=== PATIENT | male | born 1935 | race Caucasian/White ===

== ENCOUNTER 2020-06-01 08:30 | Outpatient (CLI) | payer MEDICARE, SELFPAY ==
--- NOTE | 2020-06-01 08:34 | CT_ITS ---
WS: [id number] CT ABDOMEN CONTRAST TECHNIQUE: Contrast enhanced CT of the abdomen with coronal and sagittal reformatted images. CLINICAL INFORMATION: LEFT UPPER QUADRANT PAIN COMPARISON: None. DLP: [address] scans at [facility] use at least one of these dose optimization techniques: automat ed exposure control; mA and/or kV adjustment per patient size (includes targeted exams where dose is matched to clinical indication); or iterative reconstruction. FINDINGS: Normal liver. Gallbladder appears normal. Normal GE junction. Small splenules. Normal spleen. Mild fa tty atrophy of the pancreas. A few calcifications in the head of the pancreas consistent with chronic pancreatitis. No evidence of acute pancreatitis. Lung bases are well aerated. Adrenal glands are normal. Normal renal parenchymal enhancement. Bilateral renal cortical atrophy. Mu ltiple bilateral renal cysts some are too small to characterize. Parapelvic renal cysts. No hydroneph rosis. Prominent calculus in the right renal pelvis with mild dilatation right renal pelvis. Calculus measures 10 mm unchanged. Mild aortic calcification. Normal caliber abdominal aorta. Disc space narrowing worse at L3-L4 and L5-S1 with vacuum disc phenomenon. Chronic biconcave compress ion at T11. CT/CT abdomen w con* [id number] IMPRESSION: 1. Evidence of chronic pancreatitis with pancreatic calcifications. No evidenc e of acute pancreatitis. 2. Bilateral renal cortical atrophy with bilateral renal cysts. Parapelvic cys ts. 3. 10 mm calculus right renal pelvis with mild dilatation renal pelvis. No hyd ronephrosis. This is unchanged from previous. 4. Normal caliber abdominal aorta. 5. Chronic biconcave compression of the T11 vertebral body. Disc space narrowi ng worse at L3-L4 and L5-S1 vacuum disc phenomenon. 6. Cholelithiasis.
[2020-06-01] MEDS: iohexol 300 mg/mL 50 mL Btl PO (08:58)
[2020-06-01] MEDS: iodixanol 320 mg/mL 100mL Btl IV (10:06)
== END 2020-06-01 08:31 | disposition home or self-care (01) ==
LOC: RADWPI 08:34
PROVIDERS: PCP Internal Medicine; Visit Provider Nurse Practitioner
DX: R10.12 Left upper quadrant pain (principal); K80.20 Calculus of gallbladder without cholecystitis without obstruction; S22.080A Wedge compression fracture of T11-T12 vertebra, initial encounter for closed fracture; N26.1 Atrophy of kidney (terminal); N20.0 Calculus of kidney; K86.89 Other specified diseases of pancreas; X58.XXXA Exposure to other specified factors, initial encounter
CPT/HCPCS: 74160; Q9967

== ENCOUNTER 2020-08-02 08:31 | Outpatient (CLI) | payer MEDICARE, SELFPAY | END 2020-08-02 08:32 | disposition home or self-care (01) | LOC: WOUND 08:32 | PROVIDERS: PCP Internal Medicine; Visit Provider Nurse Practitioner Family | DX: I96 Gangrene, not elsewhere classified (principal); L89.152 Pressure ulcer of sacral region, stage 2; S51.811A Laceration without foreign body of right forearm, initial encounter; X58.XXXA Exposure to other specified factors, initial encounter | CPT/HCPCS: 11042; 87070; 87176; 87205; G0463 ==

== ENCOUNTER 2020-08-09 10:15 | Outpatient (CLI) | payer MEDICARE, SELFPAY | END 2020-08-09 10:16 | disposition home or self-care (01) | LOC: WOUND 10:17 | PROVIDERS: PCP Internal Medicine; Visit Provider Nurse Practitioner Family | DX: Z09 Encounter for follow-up examination after completed treatment for conditions other than malignant neoplasm (principal) | CPT/HCPCS: 99212 ==

== ENCOUNTER 2021-05-31 09:21 | Outpatient (CLI) | payer MEDICARE, SELFPAY ==
--- NOTE | 2021-05-31 09:31 | CT_ITS ---
WS: [id number] CT LUMBAR SPINE TECHNIQUE: Noncontrast CT of the lumbar spine with coronal and sagittal reformatted images. CLINICAL INFORMATION: LOW BACK PAIN COMPARISON: CT 3 DLP: 1925.[address] scans at [facility] use at least one of these dose optimization techniques: automated e xposure control; mA and/or kV adjustment per patient size (includes targeted exams where dose is matc hed to clinical indication); or iterative reconstruction. FINDINGS: Mild lumbar curve convex left. Disc space narrowing worse at L3-L4 L4-L5 and L5-S1 with vacuum disc p henomenon. Mild chronic anterior wedging L3 appear stable since 2015. No acute appearing compression fractures. L1-L2: Mild disc bulging with moderate facet arthropathy. Mild central canal stenosis. Narrowing of t he subarticular recess. Mild bilateral foraminal narrowing. L2-L3: Mild disc bulging with slight effacement of ventral thecal sac. Moderate facet arthropathy. Sm all bilateral foraminal protrusions with moderate bilateral foraminal narrowing. L3-L4: Mild disc bulging and osteophytic ridging. Mild central canal stenosis. Moderate to advanced f acet arthropathy. Moderate bilateral foraminal narrowing. L4-L5: Disc osteophyte complex with endplate ridging. Mild central canal stenosis. Impingement pura sing left L5 nerve root. Moderate facet arthropathy. Mild left and moderate right bony foraminal narr owing. L5-S1: Disc osteophyte complexes with endplate ridging. Mild central canal stenosis. Mild facet arthr opathy. Moderate to advanced bilateral bony foraminal narrowing with impingement on the exiting L5 ne rve roots. Moderate facet arthropathy. Adrenal glands are normal. Partially visualized right renal cyst. Normal caliber abdominal aorta. CT/CT lumbar spine wo con* [id number] IMPRESSION: 1. Mild lumbar curve. No acute compression. Slight anterolisthesis L3 on L4. 2. Disc space narrowing worse at L3-L4 L4-L5 and L5-S1 appears slightly progre ssed compared to 2015. 3. Chronic anterior wedging at L3 appears stable. 4. Mild to moderate central canal stenosis worse at L1-2, L3-4, L4-L5. 5. Left pericentral disc osteophyte complex L4-5 impinges the traversing left L5 nerve root in the subarticular recess. 6. Multilevel moderate bony foraminal narrowing worse at right L2-3, bilateral L3-4, right L4-5, and bilateral L5-S1. 7. Moderate to advanced facet arthropathy worse at L2-3, L3-4, L4-5.
--- NOTE | 2021-05-31 09:31 | XR_ITS ---
WS: [id number] LUMBAR SPINE FLEXION AND EXTENSION TECHNIQUE: 3 views of the lumbar spine: Lateral neutral, flexion, and extension views. 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 FINDINGS: Osteopenia. Slight anterolisthesis L3 on L4 measuring 5.7 mm in neutral. No significant changes on fl exion-extension. Disc space narrowing worse at L3-L4 L4-L5 and L5-S1. Mild chronic compression deform ity superior endplates at L3-L5 slightly progressed at L3 compared to previous. Osteopenia. Aortic ca lcification. Mild chronic biconcave compression at T11 is unchanged. XR/XR lumbar spine f/e only [id number] IMPRESSION: 1. Grade 1 anterolisthesis L3 on L4. No significant instability on flexion-ext ension. 2. Osteopenia.
== END 2021-05-31 09:22 | disposition home or self-care (01) ==
PROVIDERS: PCP Internal Medicine; Visit Provider Nurse Practitioner
DX: M96.1 Postlaminectomy syndrome, not elsewhere classified (principal); M54.5 Low back pain; M85.88 Other specified disorders of bone density and structure, other site; M43.16 Spondylolisthesis, lumbar region; M47.816 Spondylosis without myelopathy or radiculopathy, lumbar region
CPT/HCPCS: 72120; 72131

== ENCOUNTER → 2022-08-22 07:52 | Outpatient (BNVA) | payer MEDICARE, SELFPAY | PROVIDERS: PCP Family Medicine; Visit Provider Thoracic Surgery (Cardiothoracic Vascular Surgery) | DX: I96 Gangrene, not elsewhere classified (principal); L89.152 Pressure ulcer of sacral region, stage 2 | CPT/HCPCS: 97597; 99213; A6021; A6212 ==

== ENCOUNTER → 2022-08-29 10:15 | Outpatient (BNVA) | payer MEDICARE, SELFPAY | PROVIDERS: PCP Family Medicine; Visit Provider Thoracic Surgery (Cardiothoracic Vascular Surgery) | DX: L89.152 Pressure ulcer of sacral region, stage 2 (principal) | CPT/HCPCS: 97597; A6021 ==

== ENCOUNTER → 2022-09-13 10:09 | Outpatient (BNVA) | payer MEDICARE, SELFPAY | PROVIDERS: PCP Family Medicine; Visit Provider Thoracic Surgery (Cardiothoracic Vascular Surgery) | DX: L89.152 Pressure ulcer of sacral region, stage 2 (principal) | CPT/HCPCS: 97597; A6212 ×2 ==

== ENCOUNTER → 2022-09-15 12:46 | Outpatient (BNVA) | payer MEDICARE, SELFPAY | PROVIDERS: PCP Family Medicine; Visit Provider Family Medicine | DX: R60.9 Edema, unspecified (principal); H61.20 Impacted cerumen, unspecified ear; R07.89 Other chest pain | CPT/HCPCS: 80053; 83880; 85025 ==

== ENCOUNTER → 2022-09-20 09:10 | Outpatient (BNVA) | payer MEDICARE, SELFPAY | PROVIDERS: PCP Family Medicine; Visit Provider Thoracic Surgery (Cardiothoracic Vascular Surgery) | DX: L89.152 Pressure ulcer of sacral region, stage 2 (principal) | CPT/HCPCS: 97597; A6212 ==

== ENCOUNTER → 2022-10-04 14:03 | Outpatient (BNVA) | payer MEDICARE, SELFPAY | PROVIDERS: PCP Family Medicine; Visit Provider Thoracic Surgery (Cardiothoracic Vascular Surgery) | DX: L89.152 Pressure ulcer of sacral region, stage 2 (principal) | CPT/HCPCS: 97597; A6021; A6212 ==

== ENCOUNTER → 2022-10-19 15:40 | Outpatient (BNVA) | payer MEDICARE, SELFPAY | PROVIDERS: PCP Family Medicine; Referring Provider Anesthesiology Pain Medicine; Visit Provider Orthopaedic Surgery | DX: M47.816 Spondylosis without myelopathy or radiculopathy, lumbar region (principal); M41.9 Scoliosis, unspecified; M80.08XA Age-related osteoporosis with current pathological fracture, vertebra(e), initial encounter for fracture; Z96.82 Presence of neurostimulator | CPT/HCPCS: 72110; 99204 ==

== ENCOUNTER → 2022-10-25 15:44 | Outpatient (BNVA) | payer MEDICARE, SELFPAY | PROVIDERS: PCP Family Medicine; Visit Provider Thoracic Surgery (Cardiothoracic Vascular Surgery) | DX: L89.152 Pressure ulcer of sacral region, stage 2 (principal) | CPT/HCPCS: 99212; A6021 ==

== ENCOUNTER 2022-11-21 07:50 | Outpatient (CLI) | payer MEDICARE, SELFPAY ==
--- NOTE | 2022-11-21 08:05 | NM_ITS ---
WS: [id number] NUCLEAR MEDICINE BONE SCAN Radiopharmaceutical: 24.6 Tc-99m MDP mCi IV Injection site: Antecubital Postinjection imaging delay: 1 hr CLINICAL INFORMATION: low back pain, compression fractures COMPARISON: 2006 and lumbar spine October 19, 2022 FINDINGS: Radiograph demonstrates biconcave compression fractures at L1 and L2. Increased radiotracer uptake in these areas on the bone scan compatible with acute compression. Radiotracer uptake is more intense at L2. Degenerative type uptake in RIGHT mid thoracic posterior pedicle. Thoracolumbar curve. Focal uptake in a LEFT lateral lower thoracic rib, approximately 9th rib anterio rly, likely due to trauma. Soft tissue contours: Normal. Kidneys: Normal. Other findings: Bilateral TKAs. NM/NM bone scan whole body* [id number] IMPRESSION: 1. Recent radiograph demonstrates biconcave compression fractures at L1 and L2 . Increased radiotracer uptake in these areas on the bone scan compatible with acute compression. Radiotracer uptake is more intense at L2. 2. Focal uptake in the 9th LEFT lateral lower thoracic rib anteriorly likely d ue to trauma.
== END 2022-11-21 07:51 | disposition home or self-care (01) ==
PROVIDERS: PCP Family Medicine; Visit Provider Orthopaedic Surgery
DX: M48.56XA Collapsed vertebra, not elsewhere classified, lumbar region, initial encounter for fracture (principal)
CPT/HCPCS: 78306; A9561

== ENCOUNTER → 2022-11-23 13:48 | Outpatient (BNVA) | payer MEDICARE, SELFPAY | PROVIDERS: PCP Family Medicine; Visit Provider Physician Assistant | DX: S32.000A Wedge compression fracture of unspecified lumbar vertebra, initial encounter for closed fracture (principal); X58.XXXA Exposure to other specified factors, initial encounter | CPT/HCPCS: 99213 ==

== ENCOUNTER 2022-12-20 14:40 | Outpatient (CLI) | payer MEDICARE, SELFPAY ==
[2022-12-20 15:48] LABS: Basophils % 0.5 %; Eosinophils # 0.2 10^3/uL (0.0-0.8); Eosinophils % 2.5 %; Hematocrit 36.9 % (42.0-52.0); Lymphocytes # 0.4 10^3/uL (0.8-4.8); Mean Corpuscular HGB Conc 32.5 g/dL (30.0-36.0); Mean Corpuscular Hemoglobin 30.7 pg (28.0-34.0); Mean Corpuscular Volume 94.4 fl (80-94); Mean Platelet Volume 12.5 fL (7.4-10.4); Monocytes # 1.1 10^3/uL (0.2-0.9); Neutrophils # 4.36 10^3/uL (1.8-7.7); Neutrophils % 72.7 %; Nucleated Red Blood Cells % 0 %; Platelet Count 155 10^3/cmm (130-400); Red Blood Count 3.91 10^6/uL (4.1-5.3); Red Cell Distribution Width 14.6 % (12.1-15.1)
[2022-12-20 16:13] LABS: Blood Urea Nitrogen 23 mg/dL (8-23); Calcium 8.7 mg/dL (8.5-10.5); Carbon Dioxide 25 mmol/L (22-29); Chloride 105 mmol/L (98-107); Glucose 144 mg/dL (65-115); Osmolality Calculated 298 mOsm/kg (285-295); Sodium 141 mmol/L (136-145)
[2022-12-20 16:35] LABS: Slide Review Slide Review Perform
== END 2022-12-20 14:41 | disposition home or self-care (01) ==
LOC: LAB 14:51
PROVIDERS: Orthopaedic Surgery; PCP Family Medicine; Visit Provider Family Medicine
DX: Z01.818 Encounter for other preprocedural examination (principal)
CPT/HCPCS: 36415; 80048; 85025

== ENCOUNTER → 2023-01-08 10:36 | Outpatient (BNVA) | payer MEDICARE, SELFPAY | PROVIDERS: PCP Family Medicine; Visit Provider Internal Medicine | DX: R26.9 Unspecified abnormalities of gait and mobility (principal); M96.1 Postlaminectomy syndrome, not elsewhere classified; Z79.899 Other long term (current) drug therapy; S32.000A Wedge compression fracture of unspecified lumbar vertebra, initial encounter for closed fracture; M32.9 Systemic lupus erythematosus, unspecified; X58.XXXA Exposure to other specified factors, initial encounter | CPT/HCPCS: 99213 ==

== ENCOUNTER 2023-01-26 05:35 | Outpatient (CLI) | payer MEDICARE, SELFPAY | END 2023-01-26 05:36 | disposition home or self-care (01) | LOC: RT 02-09 05:36 | PROVIDERS: PCP Family Medicine; Visit Provider Orthopaedic Surgery | DX: Z01.810 Encounter for preprocedural cardiovascular examination (principal); I44.0 Atrioventricular block, first degree; R94.31 Abnormal electrocardiogram [ECG] [EKG] | CPT/HCPCS: 93005 ==

== ENCOUNTER 2023-02-01 10:49 | Emergency (ER) | payer MEDICARE, SELFPAY ==
--- NOTE | 2023-02-01 11:20 | XR_ITS ---
WS: [id number] Exam: XR ribs RT mn 3V w CXR1V [id number] Date/Time of Exam: 02/01/2023 11:20 AM Reason For Exam: fall There is a nondisplaced fracture of the lateral aspect of the right eighth rib. There may also be a n ondisplaced fracture of the lateral right sixth rib. No other acute fractures. The right lung is hollie r and fully inflated. XR/XR ribs RT mn 3V w CXR1V [id number] IMPRESSION: 1. Nondisplaced right eighth rib fracture. Questionable nondisplaced fracture o f the right sixth rib. No pneumothorax is noted. 2. The lungs are bilaterally clear. Normal cardiomediastinal silhouette. Opaque catheter seen along the central chest extending into the left abdominal region .
--- NOTE | 2023-02-01 11:20 | CT_ITS ---
WS: [id number] CT HEAD NONCONTRAST HISTORY: fall TECHNIQUE: Contiguous axial imaging performed through the brain in 2.5 mm imaging. Bone and soft tiss ue windows. Sagittal and coronal reformats reviewed. All CT scans at [facility] use at least one of these dose optimization techniques: automated exposure control; mA and/or kV adjustment per pa tient size (includes targeted exams where dose is matched to clinical indication); or iterative recon struction. DLP: 1095.51 mGy.cm COMPARISON: 04/17/2022 No acute intracranial hemorrhage, midline shift or mass effect. Mild atrophy and small vessel ischemic disease. No prior large territory infarct. Small lacunar infa rct LEFT basal ganglia. Ventricles: Mild ventriculomegaly on the basis of atrophy. No inferior displacement of the cerebellar tonsils. Paranasal sinuses: No air-fluid levels. Complete opacification sphenoid sinus. Mastoid air cells: Well pneumatized. Calvarium and scalp: Skull is intact with no soft tissue edema or swelling. CT/CT head wo con* [id number] IMPRESSION: 1. No acute intracranial hemorrhage or edema. 2. Mild atrophy and mild small vessel ischemic changes. 3. No skull fracture.
--- NOTE | 2023-02-01 11:20 | W.ED.FALL ---
HPI - Fall General: Chief Complaint: Fall Stated Complaint: Fall/Hit head Time Seen by Provider: 02/01/23 10:57 Source: patient Mode of arrival: ambulatory Limitations: no limitations History of Present Illness: 87-year-old male states that he had fell out of bed this morning roughly 3 to 4 hours ago. Did hit his head and his right ribs his abrasion to his head he states he is got a mild headache and right-sided chest pain he rates a 3 out of 10 denies any shortness of breath denies any neck pain denies any facial pain. He is scheduled for a lumbar back surgery tomorrow he denies any pain in his low back. Associated symptoms-after fall: Reports chest pain and headache(s); Denies abdominal pain or neck pain Review of Systems Const: Denies: fever(s), chills, body aches or change in appetite Eyes: Denies: blurry vision or eye discomfort ENMT: Denies: throat pain or dental pain Card: Reports: chest pain Resp: Denies: dyspnea GI: Denies: abdominal pain, nausea, vomiting or diarrhea Musc: Denies: neck pain or back pain Skin/Breast: Denies: rash Neuro: Reports: headache(s) PFSH ED PFSH: Medical History Constipation due to opioid therapy DDD (degenerative disc disease) GERD (gastroesophageal reflux disease) History of pancreatitis History of prostate cancer Osteoarthritis Osteoporosis Systemic lupus erythematosus Surgical History History of bilateral carpal tunnel release History of hand surgery left trigger finger History of lumbar surgery History of open reduction and internal fixation (ORIF) procedure r femur History of open reduction and internal fixation (ORIF) procedure r elbow History of repair of right rotator cuff History of total bilateral knee replacement Status post insertion of spinal cord stimulator Family History Mother Dementia Father Rheumatoid arthritis Social History Smoking and tobacco status: never smoked Alcohol intake: current Alcohol intake frequency: holidays/special occasions only Substance/Drug Use: never Lives independently: Yes Household members: spouse Marital status: Number of children: 2 Current occupational status: retired 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 Physical Exam Const: COMMON NORMALS: no acute distress, patient oriented x3 and healthy appearing HENMT: COMMON NORMALS: normocephalic; head/scalp not atraumatic (abrasion to right forehead) HEAD & SCALP: normocephalic; not atraumatic (abrasion to right forehead) Eye: COMMON NORMALS: Equal, round and reactive pupils present and EOMs intact bilaterally PUPIL: Yes Equal, round and reactive pupils present Neck/C-Spine: COMMON NORMALS: full ROM and supple CERVICAL SPINE: No Cervical spine tenderness Chest: COMMONS NORMALS: normal inspection of the chest OTHER: right sided chest tenderness Resp: COMMON NORMALS: normal respiratory effort, No retractions, No use of accessory muscles and clear to auscultation bilaterally AUSCULTATION: clear to auscultation bilaterally Cardio: COMMON NORMALS: regular rate, regular rhythm and No murmurs present (Cardio) RATE: regular rate RHYTHM: regular rhythm GI: COMMON NORMALS: Normal to inspection, nondistended, normoactive bowel sounds present, Soft to palpation, non-tender and no masses PALPATION: Yes Soft to palpation Extremity: COMMON NORMALS: normal to inspection and full ROM Neuro: COMMON NORMALS: patient oriented x3, moves all extremities and no focal motor deficits Psych: COMMON NORMALS: mental status grossly normal, Normal thought process present and cooperative THOUGHT PROCESS: Normal thought process present Skin: COMMON NORMALS: no rashes or lesions noted and no wounds GENERAL SKIN EXAM: no rashes or lesions noted Course Vital Signs: Vital signs: Vital Signs Temperature 97.8 F 02/01/23 11:23 Pulse Rate 66 02/01/23 11:23 Respiratory Rate 18 02/01/23 11:23 Blood Pressure 138/78 02/01/23 11:23 Pulse Oximetry 97 02/01/23 11:23 Oxygen Delivery Me thod Room Air 02/01/23 11:23 MDM - Fall Medical Decision Making Patient presents after a fall his head CT here is normal he does have 1/9 rib fracture no signs of pneumothorax he is well-appearing here otherwise no signs of any other injuries his abdominal exam is benign he is stable for discharge we will prescribe tramadol he is to follow-up with PCP and return if worsening. Medical Records I reviewed the patient's medical records. Lab Data I reviewed the patient's lab results. Radiology Impressions Head CT 02/01/23 11:20 IMPRESSION: 1. No acute intracranial hemorrhage or edema. 2. Mild atrophy and mild small vessel ischemic changes. 3. No skull fracture. Ribs X-Ray 02/01/23 11:20 IMPRESSION: 1. Nondisplaced right eighth rib fracture. Questionable nondisplaced fracture of the right sixth rib. No pneumothorax is noted. 2. The lungs are bilaterally clear. Normal cardiomediastinal silhouette. Opaque catheter seen along the central chest extending into the left abdominal region. Discharge Plan Discharge Patient Disposition: Home Clinical Impression: Fall, CHI (closed head injury) Closed rib fracture Qualifiers: Encounter type: initial encounter Rib fracture type: single rib Laterality: right Qualified Code(s): S22.31XA - Fracture of one rib, right side, initial encounter for closed fracture Condition: Stable Prescriptions: New tramadol 50 mg tablet 50 mg PO Q8H PRN (Reason: pain) Qty: 14 0RF No Action cholecalciferol (vitamin D3) 50 mcg (2,000 unit) capsule 50 mcg PO QAM acetaminophen [Tylenol 8 Hour] 650 mg tablet extended release 650 mg PO .UP TO QID hydroxychloroquine [Plaquenil] 200 mg tablet 200 mg PO BID Qty: 60 4RF multivitamin Tablet 1 tab PO DAILY Colace 100 mg Capsule 100 mg PO DAILY PRN (Reason: Constipation) Discharge Orders: Discharge ED (Routine); Ordered 02/01/23 Ordered By: Corby Nicolas Referrals: Rukhsana Gutierrez MD [Primary Care Provider] - 1-3 days Discharge Diet: Advance as tolerated Discharge Activity: Resume usual activity Patient Instructions: Rib Fracture (ED), Head Injury (ED) Coding Level of Care Code ED Business Unit Leader for Felicity Orozco
[2023-02-01 11:23] VITALS: BP 138/78; PULSE 66; RESP 18; TEMP 36.6; O2SAT 97
--- NOTE | 2023-02-01 12:01 | PC.PHAR ---
pts verified pts medications-pts states she has been taking care of his medications for a year at least-ext med history shows metoprolol tartrate 25mg bid filled 01/19/23 90d/s leflunomide 20mg daily filled 01/15/23 90d/s prednisone 2.5mg daily filled 11/13/22 90d/s and pantoprazole 40mg daily filled 10/26/22 90d/s all filled at [facility] states they filled all those medications for hugo jolly twin brother but states they havent filled them for almaz states the most recent thing they filled for almaz was plaquenil 200mg bid 10/21/22 60d/s pt also had plaquenil medication filled 01/08/23 30d/s at [facility]-pts states the pt is only taking the medications entered
[2023-02-01] MEDS: TRAMadol 50 mg Tablet PO (12:11)
[2023-02-01 12:19] VITALS: BP 138/78; PULSE 66; RESP 18; O2SAT 97
== END 2023-02-01 12:22 | disposition home or self-care (01) ==
PROVIDERS: Emergency Provider Emergency Medicine; PCP Family Medicine
DX: S09.8XXA Other specified injuries of head, initial encounter (principal); S22.31XA Fracture of one rib, right side, initial encounter for closed fracture; Z85.46 Personal history of malignant neoplasm of prostate; M32.9 Systemic lupus erythematosus, unspecified; W06.XXXA Fall from bed, initial encounter
CPT/HCPCS: 70450; 71101; 99284

== ENCOUNTER 2023-02-02 05:42 | Day surgery (SDC) | payer MEDICARE, SELFPAY ==
--- NOTE | 2023-01-26 09:56 | ECG_ITS ---
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 Measurements Intervals [place] Rate: 80 P: 23 DC: 211 QRS: 45 QRSD: 105 T: -10 QT: 352 QTc: 408 Interpretive Statements SINUS RHYTHM WITH FIRST DEGREE AV BLOCK LOW QRS VOLTAGE IN PRECORDIAL LEADS [QRS DEFLECTION < 1.0 mV IN CHEST LEADS] NONSPECIFIC ST & T-WAVE ABNORMALITY Compared to ECG 04/17/2022 18:23:48 First degree AV block now present Low QRS voltage now present Sinus tachycardia no longer present Atrial abnormality no longer present Possible ischemia no longer present T-wave abnormality still present Electronically Signed On 01-26-2023 12:30:54 CDT by Kavita Holliday M.D. [id number]
--- NOTE | 2023-01-26 14:36 | P.ANESASSM_ITS ---
Pre-Anesthetic Assessment Height/Weight: Height 1.8 m Weight 85.275 kg Operation Date: 02/02/23 07:00 Proposed Procedures p L1, L2 kyphoplasty : 92845,44831,S32.000A(Not Applicable) - Segundo Rodriguez DO Familial anesthetic complications: none Was Beta Karthikeyan taken within 24 hours: N/A Was Clonidine taken within 24 hours: N/A Social No alcohol and No tobacco Exam alert, oriented x 3, clear to auscultation bilaterally and regular rate & rhythm Airway Submandibular: within normal limits Cervical ROM: within normal limits Mallampati: Class II Dentition: chipped GI Gastroesophageal Reflux Disease Musc/skel Lower Back Pain and Osteoarthritis/DJD Lupus Anesthetic Plan ASA status: 3 Anesthesia: General Medications/Allergies Home Medications Medication Instructions Recorded Confirmed Last Taken Type multivitamin,bw-pvlr-hdgasbuh 1 tab PO DAILY 03/25/20 01/26/23 01/26/23 History (Complete Multivitamin tablet) docusate sodium 50 mg capsule 50 mg PO DAILY 05/22/22 01/26/23 01/26/23 History acetaminophen 650 mg 650 mg PO Q8H 12/22/22 01/26/23 01/26/23 History tablet,extended release (Tylenol 8 Hour) cholecalciferol (vitamin D3) 50 50 mcg PO DAILY 12/22/22 01/26/23 01/26/23 History mcg (2,000 unit) capsule tramadol 50 mg tablet 50 mg PO Q4H PRN pain 5 days #30 01/02/23 01/26/23 Unknown Rx tabs hydroxychloroquine 200 mg tablet 200 mg PO BID #60 tabs 01/08/23 01/26/23 01/26/23 Rx (Plaquenil) Allergies Allergy/AdvReac Type Severity Reaction Status Date / Time hydrocodone [From [place]] Allergy Intermediate ADR-halluci Verified 01/26/23 09:32 [facility] Anesthesia Medical History Constipation due to opioid therapy DDD (degenerative disc disease) GERD (gastroesophageal reflux disease) History of pancreatitis History of prostate cancer Osteoarthritis Osteoporosis Systemic lupus erythematosus Surgical History History of bilateral carpal tunnel release History of hand surgery left trigger finger History of lumbar surgery History of open reduction and internal fixation (ORIF) procedure r femur History of open reduction and internal fixation (ORIF) procedure r elbow History of repair of right rotator cuff History of total bilateral knee replacement Status post insertion of spinal cord stimulator Family History Mother Dementia Father Rheumatoid arthritis Social History Smoking and tobacco status: never smoked Alcohol intake: current Alcohol intake frequency: holidays/special occasions only Substance/Drug Use: never Lives independently: Yes Household members: spouse Marital status: Number of children: 2 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
[2023-02-02] VITALS (13 sets, daily range): BP systolic 158–188; BP diastolic 73–101; PULSE 77–85; RESP 16; TEMP 36.2–36.5; O2SAT 91–100
--- NOTE | 2023-02-02 05:46 | SC_ITS ---
WS: [id number] Exam: C-arm FL for Kyphoplasty Date/Time of Exam: 02/02/2023 5:46 AM Reason For Exam: Kyphoplasty L1 and L2 AP and lateral C-arm images of the upper lumbar spine are provided. Images were obtained for intraope rative purposes.
--- NOTE | 2023-02-02 06:25 | P.HP_ITS ---
Providers/Chief Complaint Primary Care Provider: Rukhsana Gutierrez MD Chief Complaint: S32.000A History of Present Illness Srikanthbrea Crocker is a 87 year old male ?low back pain that has been on going for years and worse sine he fell on 02/05/22. Chief Complaint: low back pain Onset: years? Duration: worse over the past 6 months Characteristics: ache Severity: 02/10 Location: low back pain Radiating symptoms: none Aggravating factors:? car rides with his , sudden movements, walking Alleviating factors:? topical creams without relief Neuro deficits: denies numbness, tingling, weakness, incontinence of bow el/bladder, saddle anesthesia. Prior tx:TRISH and ablation with? some relief Review of Systems Const: Denies: fever(s), chills, body aches or change in appetite Eyes: Denies: blurry vision or eye discomfort ENMT: Denies: throat pain or dental pain Card: Reports: chest pain Resp: Denies: dyspnea GI: Denies: abdominal pain, nausea, vomiting or diarrhea Musc: Denies: neck pain or back pain Skin/Breast: Denies: rash Neuro: Reports: headache(s) Medications/Allergies Home Medications Medication Instructions Recorded Confirmed Last Taken Type acetaminophen 650 mg 650 mg PO .UP TO QID 12/22/22 02/01/23 02/01/23 07:00 History tablet,extended release (Tylenol 8 Hour) cholecalciferol (vitamin D3) 50 50 mcg PO QAM 12/22/22 02/01/23 02/01/23 07:00 History mcg (2,000 unit) capsule hydroxychloroquine 200 mg tablet 200 mg PO BID #60 tabs 01/08/23 02/01/23 02/01/23 07:00 Rx (Plaquenil) docusate sodium 100 mg capsule 100 mg PO DAILY PRN Constipation 02/01/23 02/01/23 Unknown History (Colace) multivitamin 1 tab PO DAILY 02/01/23 02/01/23 01/31/23 History tramadol 50 mg tablet 50 mg PO Q8H PRN pain #14 tabs 02/01/23 Unknown Rx Allergies Allergy/AdvReac Type Severity Reaction Status Date / Time hydrocodone [From [place]] Allergy Intermediate ADR-halluci Verified 02/02/23 06:27 nations PFSH Acute PFSH: Medical History Constipation due to opioid therapy DDD (degenerative disc disease) GERD (gastroesophageal reflux disease) History of pancreatitis History of prostate cancer Osteoarthritis Osteoporosis Systemic lupus erythematosus Surgical History History of bilateral carpal tunnel release History of hand surgery left trigger finger History of lumbar surgery History of open reduction and internal fixation (ORIF) procedure r femur History of open reduction and internal fixation (ORIF) procedure r elbow History of repair of right rotator cuff History of total bilateral knee replacement Status post insertion of spinal cord stimulator Family History Mother Dementia Father Rheumatoid arthritis Social History Smoking and tobacco status: never smoked Alcohol intake: current Alcohol intake frequency: holidays/special occasions only Substance/Drug Use: never Lives independently: Yes Household members: spouse Marital status: Number of children: 2 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 EXAM NARRATIVE: Al ert and orient x3 has good general a ppearance normal n ormal affect.? Pre sents in a wheelch air with his famil y present.? He is tender with palpat ion to the low jose f k.? Is 4/5 strengt h in both lower ex tremities skin is clear warm femoral good cap refill. HENMT:?? COMMON NORMALS: no rmocephalic? HEAD & SCALP: normoceph alic Resp:?? COMMON NORMALS: no rmal respiratory e ffort Cardio:?? COMMON NORMALS: re gular rate and reg ular rhythm? RATE: regular rate? RHY THM: regular rhyth m GI:?? COMMON NORMALS: So ft to palpation an d non-tender? PALP ATION: Yes Soft to palpation :?? COMMON NORMALS: Ye s no CVA tendernes s? BLADDER/KIDNEY EXAM: Yes no CVA t enderness Back/Pelvis:?? COMMON NORMALS: no CVA tenderness A&P Assessment and plan (1) Traumatic compression fracture of lumbar vertebra: L1 and L2 Kyphoplasty Attestations Medical Necessity Statement*: failed conservative tx Coding Level of Care Code Acute Code for Chg Fwd Diagnoses Traumatic compression fracture of lumbar vertebra S32.000A
[2023-02-02] MEDS: sodium chloride 0.9% 1,000 ML 30 ML IV (06:26)
--- NOTE | 2023-02-02 06:42 | P.ANESUD_ITS ---
Pre-Anesthetic Update Pre-Anesthetic Assessment: Date of Surgery/Procedure: 02/02/23 Preop Deepa gnosis: Fractures lumbar vertebra Proposed Procedure: Operation Date: 02/02/23 07:00 Proposed Procedures p L1, L2 kyphoplasty : [id number],S32.000A(Not Applicable) - Segundo Rodriguez, DO Any changes to Pre-Anesthetic Assessment?: Yes Changes from Pre-Anesthetic Assessment: Fall several days ago, surgeon aware. ER visit showed negative work up for acute injury Last Intake: Intake Last Liquid Date 02/06/23 Last Liquid Time 18:00 Last Solid Date 02/01/23 Last Solid Time 18:00 Vitals: Temperature 97.6 F 02/02/23 06:13 Temperature Source Temporal Artery S can 02/02/23 06:13 Pulse Rate 85 02/02/23 06:13 Respiratory Rate 16 02/02/23 06:13 Blood Pressure 188/101 02/02/23 06:13 Blood Pressure Bela n 130 02/02/23 06:13 Pulse Oximetry 94 02/02/23 06:13 Oxygen Delivery Me thod Room Air 02/02/23 06:13 Exam: Pre-Anes Outpt Exam: alert, oriented x 3, clear to auscultation bilaterally and regular rate & rhythm Cardiac Studies: No Data to Display
[2023-02-02] MEDS: ceFAZolin 2,000 MG in sodium chloride 0.9% (plus) 50 ML 100 MG IV (06:58)
[2023-02-02] MEDS: lidocaine-epi 1% 20 mL INJ INJECTION (07:41)
[2023-02-02] MEDS: iohexol 300 mg/mL 50 mL Btl (OR ONLY) XX (07:41)
--- NOTE | 2023-02-02 08:24 | PM.OP ---
Operative Report Date of procedure: February 02, 2023 Pre-op diagnosis: Preop Diagnosis traumatic wedge compression osteoporotic Fractures lumbar vertebra 1 and 2 Post-op diagnosis: same Procedure done: 1. Kyphoplasty L1 2 kyphoplasty of L2 Surgeon: Segundo Rodriguez Estimated blood loss (mL): 5 Procedure: Patient will demonstrate (placed in the prone position. All his measures were well-padded. Patient was prepped and diagnosed with fashion. Biplanar fluoroscopy was brought in the left pedicle was entered into the L2 vertebrae. With the awl. The drill was then passed and the balloon was inflated. She was brought to L1. This was a tubular plane appears difficult to see well on the AP however is clear on the lateral the almost passed followed by the drill followed by the balloon balloon was removed. An instrument was used to fill both L2 and L1. AP lateral fluoroscopy ensured that the symptoms were in the appropriate position. Tubes were pulled and AP lateral fluoroscopy ensured that the cement was in good position wounds were irrigated closed with nylon suture sterile dressings were applied patient was transferred to the PACU in stable condition.
[2023-02-02] MEDS: acetaminophen 325 mg Tablet 650 MG PO (09:24)
--- NOTE | 2023-02-02 12:10 | ANE.PACU2 ---
Inpatient post-anesthesia follow up: Airway intact: Yes Vital signs: Temperature 97.1 F Pulse Rate 80 Respiratory Rate 16 Blood Pressure 181/82 Pulse Oximetry 91 Oxygen Delivery Me thod Room Air Oxygen Flow Rate 4 Fraction of Inspir ed Oxygen Hydration adequate: Yes Nausea and vomiting: Yes Pain level: 1 Mental status: Baseline
== END 2023-02-02 10:00 | disposition home or self-care (01) ==
PROVIDERS: PCP Family Medicine; Visit Provider Orthopaedic Surgery
PROC: (CPT 22514; principal; 2023-02-02 07:00)
DX: S32.010A Wedge compression fracture of first lumbar vertebra, initial encounter for closed fracture (principal); S32.020A Wedge compression fracture of second lumbar vertebra, initial encounter for closed fracture; W19.XXXA Unspecified fall, initial encounter; I44.0 Atrioventricular block, first degree; K21.9 Gastro-esophageal reflux disease without esophagitis
CPT/HCPCS: 22514; 22515; 76000; J0690; J1100; J2370; J2405; J2704; J2710; J3010; J3490; J7030

== ENCOUNTER 2023-02-08 13:22 | Outpatient (CLI) | payer MEDICARE, SELFPAY ==
--- NOTE | 2023-02-08 13:30 | XR_ITS ---
WS: [id number] SCREENING DEXA SCAN [employer] CLINICAL INFORMATION: S32.000A - Wedge compression fracture of unspecified lumb... COMPARISON: 2018 FINDINGS: The LEFT forearm bone mineral density measures 1.03. This corresponds to a T score score of 0.5 and Z score of 2.0. Left femoral neck bone mineral density measures 0.876 g/cm2. This corresponds to a T score of -1.6 an d Z score of -0.1. Right femoral neck bone mineral density measures 0.654 g/cm2. This corresponds to a T score -3.1of an d Z score of -1.7. Mean femoral neck bone mineral density measures 0.765 g/cm2. This corresponds to a T score of -2.3 an d Z score of -0.9. XR/XR DEXA axial skeleton* [id number] IMPRESSION: Normal bone mineralization LEFT forearm. Osteopenia LEFT femoral neck. Osteopor osis RIGHT femoral neck. Patient's FRAX calculated 10 year probability for major osteoporotic fracture i s 33.8 % and osteoporotic hip fracture is 27.1%. Bone mineral density in the femoral necks has decreased -18.9% since 2018
== END 2023-02-08 13:23 | disposition home or self-care (01) ==
LOC: RAD 13:25
PROVIDERS: PCP Family Medicine; Visit Provider Internal Medicine
DX: M96.1 Postlaminectomy syndrome, not elsewhere classified (principal); S32.000A Wedge compression fracture of unspecified lumbar vertebra, initial encounter for closed fracture; X58.XXXA Exposure to other specified factors, initial encounter; M81.0 Age-related osteoporosis without current pathological fracture
CPT/HCPCS: 77080; 99213

== ENCOUNTER → 2023-02-15 08:22 | Outpatient (BNVA) | payer MEDICARE, SELFPAY | PROVIDERS: PCP Family Medicine; Visit Provider Physician Assistant | DX: X58.XXXA Exposure to other specified factors, initial encounter (principal); M54.59 Other low back pain; S32.000A Wedge compression fracture of unspecified lumbar vertebra, initial encounter for closed fracture; M54.50 Low back pain, unspecified | CPT/HCPCS: 72110; 99214 ==

== ENCOUNTER → 2023-03-13 13:02 | Outpatient (BNVA) | payer MEDICARE, SELFPAY | PROVIDERS: PCP Family Medicine; Visit Provider Nurse Practitioner Family | DX: I96 Gangrene, not elsewhere classified (principal); L89.322 Pressure ulcer of left buttock, stage 2; L89.312 Pressure ulcer of right buttock, stage 2 | CPT/HCPCS: 97597; 99213 ==

== ENCOUNTER 2023-03-14 13:00 | Outpatient (CLI) | payer MEDICARE, SELFPAY ==
--- NOTE | 2023-03-14 13:00 | CTR_ITS ---
PROCEDURE INFORMATION: Exam: CT Lumbar Spine Without Contrast Exam date and time: 03/14/2023 1:17 PM Age: 87 years old Clinical indication: Low back pain; Prior surgery; Surgery date: 1-6 months; Surgery type: Back, stimulator; Patient HX: HX of prostate cancer; Additional info: Post op pain TECHNIQUE: Imaging protocol: Computed tomography of the lumbar spine without contrast. Radiation optimization: All CT scans at this facility use at least one of these dose optimization techniques: automated exposure control; mA and/or kV adjustment per patient size (includes targeted exams where dose is matched to clinical indication); or iterative reconstruction. REPORTING DATA: Count of CT and Cardiac NM exams in prior 12 months: This patient has received 3 known CTs and 0 known cardiac nuclear medicine studies in the 12 months prior to the current study. COMPARISON: CT lumbar spine wo con* [id number] 02/03/2022 6:14 PM RADIATION DOSE METRICS: Total DLP (mGy-cm): 990.65 FINDINGS: Bones/joints: Bones are demineralized. There are severe compression fractures involving L1 and L2 treated with vertebroplasty developed from previous exam. There is also a mild compression fracture of T12 that has also developed from previous exam. There is a mild biconcave compression fracture of L3 stable in severity from previous exam. T12-L1: Mild compression fracture T12 with retropulsion of the superior endplate of resulting in moderate stenosis of the central canal. Intraosseous gas within the vertebral body extending into the disc space that has been associated with osteonecrosis but possibly postsurgical in nature. L1-L2: Severe compression fracture of L1 treated with vertebroplasty without marked retropulsion of the posterior vertebral margin resulting in severe stenosis of the central canal and neural foramina. L2-L3: Severe compression fracture L2 treated with vertebroplasty with mild retropulsion of the posterior vertebral margin resulting in moderate stenosis of the central canal and neural foramina bilaterally. L3-L4: Mild-moderate biconcave compression fracture with mild retropulsion of the superior endplate relatively stable from previous exam resulting in mild stenosis of the central canal and mild-moderate foraminal narrowing more pronounced on the right. Intraosseous gas within the vertebral body extending into the disc space that may also be postsurgical in nature. L4-L5: . Degenerative disc space narrowing with diffuse annular disc bulge and facet arthrosis resulting in mild stenosis of the central canal and moderate narrowing of the right neural foramina. L5-S1: Degenerative disc changes with annular disc bulge and facet arthrosis resulting in moderate foraminal stenosis bilaterally. Soft tissues: Unremarkable. CT/CT lumbar spine wo con* [id number] IMPRESSION: 1. Severe compression fractures L1 and L2 vertebral bodies treated with vertebroplasty resulting in moderate-severe stenosis of the spinal canal most pronounced at L1. 2. Mild compression fracture T12 developed from previous exam resulting in moderate stenosis of the central canal. 3. Mild compression fracture L3, unchanged contributing to mild stenosis of the central canal. 4. Degenerative disc changes L4-L5 and L5-S1 as discussed above. 5. Multilevel acquired foraminal stenosis as discussed above.
--- NOTE | 2023-03-14 13:25 | XRR_ITS ---
PROCEDURE INFORMATION: Exam: XR Right Knee Exam date and time: 03/14/2023 1:31 PM Age: 87 years old Clinical indication: Pain; Knee; Bilateral; Prior surgery; Surgery date: 6+ months; Surgery type: S/P tka 30 years ago; Additional info: Knee pain S/P tka 30 years ago TECHNIQUE: Imaging protocol: Radiologic exam of the right knee. 3image(s) are provided. Views: 3 views. COMPARISON: 1. NM bone scan whole body* [id number] 11/21/2022 8:05 AM 2. CR XR knee LT 3V* [id number] 03/14/2023 1:28 PM. No previous right knee radiograph is currently available. FINDINGS: Bones/joints: Osseous alignment is maintained.No displaced fracture or dislocation is appreciated. There is some trace joint fluid present. There is chronic cortical thickening indicative of previous injury along with repair jayant and screw fixation of the femur. There is good alignment of the knee prosthesis hardware with no periprosthetic lucency appreciated. Soft tissues: No radiopaque foreign body or subcutaneous emphysema is appreciated. Vasculature: There is atherosclerotic vascular calcification present. XR/XR knee RT 3V* [id number] IMPRESSION: Osseous and surgical hardware alignment appears maintained.No fracture or dislocation is appreciated.
--- NOTE | 2023-03-14 13:25 | XRR_ITS ---
PROCEDURE INFORMATION: Exam: XR Left Knee Exam date and time: 03/14/2023 1:28 PM Age: 87 years old Clinical indication: Pain; Prior surgery; Surgery date: 6+ months; Surgery type: Bilateral knee; Additional info: Knee pain S/P tka 30 years ago TECHNIQUE: Imaging protocol: Radiologic exam of the left knee. 3image(s) are provided. Views: 3 views. COMPARISON: 1. NM bone scan whole body* [id number] 11/21/2022 8:05 AM 2. CR XR knee RT 3V* [id number] 03/14/2023 1:31 PM. No previous left knee radiograph is currently available. FINDINGS: Tubes, catheters and devices: There is good alignment of the knee prosthetic hardware with no periprosthetic lucency appreciated. Bones/joints: Osseous alignment is maintained.No displaced fracture or dislocation is appreciated. There is some trace joint fluid present. There is some posterior fabella averaging. There is slightly decreased bone mineralization overall. Soft tissues: No radiopaque foreign body or subcutaneous emphysema is appreciated. Vasculature: There are atherosclerotic vascular calcifications present. Other findings: There is some penetration artifact. XR/XR knee LT 3V* [id number] IMPRESSION: Osseous and surgical hardware alignment appears maintained.No fracture or dislocation is appreciated.
== END 2023-03-14 13:01 | disposition home or self-care (01) ==
PROVIDERS: PCP Family Medicine; Visit Provider Physician Assistant
DX: G89.18 Other acute postprocedural pain (principal); M25.561 Pain in right knee; M25.562 Pain in left knee; S32.010A Wedge compression fracture of first lumbar vertebra, initial encounter for closed fracture; S32.020A Wedge compression fracture of second lumbar vertebra, initial encounter for closed fracture; S32.030A Wedge compression fracture of third lumbar vertebra, initial encounter for closed fracture; S22.080A Wedge compression fracture of T11-T12 vertebra, initial encounter for closed fracture; X58.XXXA Exposure to other specified factors, initial encounter; M51.37 Other intervertebral disc degeneration, lumbosacral region; M48.07 Spinal stenosis, lumbosacral region; Z96.653 Presence of artificial knee joint, bilateral
CPT/HCPCS: 72131; 73562

== ENCOUNTER → 2023-03-20 12:57 | Outpatient (BNVA) | payer MEDICARE, SELFPAY | PROVIDERS: PCP Family Medicine; Visit Provider Nurse Practitioner Family | DX: I96 Gangrene, not elsewhere classified (principal); L89.312 Pressure ulcer of right buttock, stage 2; L89.322 Pressure ulcer of left buttock, stage 2 | CPT/HCPCS: 97597; A6212 ==

== ENCOUNTER → 2023-04-04 07:52 | Outpatient (BNVA) | payer MEDICARE, SELFPAY | PROVIDERS: PCP Family Medicine; Visit Provider Physician Assistant | DX: M54.59 Other low back pain (principal) | CPT/HCPCS: 99213 ==

== ENCOUNTER 2023-04-21 09:56 | Inpatient (IN) | payer MEDICARE, SELFPAY ==
[2023-04-21] VITALS (39 sets, daily range): BP systolic 74–161; BP diastolic 37–93; PULSE 85–120; RESP 15–30; TEMP 36.5–36.7; O2SAT 92–99
--- NOTE | 2023-04-21 10:15 | XRR_ITS ---
PROCEDURE INFORMATION: Exam: XR Chest Exam date and time: 04/21/2023 10:56 AM Age: 87 years old Clinical indication: Fever and other: Weakness TECHNIQUE: Imaging protocol: Radiologic exam of the chest. Views: 1 view. COMPARISON: 1. CR XR ribs RT mn 3V w CXR1V [id number] 02/01/2023 11:38 AM 2. CR XR chest 1V portable [id number] 04/17/2022 6:10 PM 3. CR XR chest 1V portable [id number] 02/03/2022 9:16 PM FINDINGS: Lungs: Pulmonary hypoinflation. No consolidation. Mild bibasilar atelectasis versus scarring. Pleural spaces: Unremarkable. No pleural effusion. No pneumothorax. Heart/Mediastinum: Unremarkable. No cardiomegaly. Vasculature: Aortic arch calcification. Bones/joints: Right humeral head suture anchor. Degenerative changes along the spine and shoulders. Multiple mildly displaced posterior and lateral right rib fractures suspected to involve the 3rd, 4th, 5th, 6th, 7th, and 8th ribs. XR/XR chest 1V portable [id number] IMPRESSION: Multiple mildly displaced right rib fractures, suspect 3rd through 8th ribs, with mild right basilar atelectasis, suggestive of flail chest.
--- NOTE | 2023-04-21 10:20 | ECG_ITS ---
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 Measurements Intervals [place] Rate: 111 P: 43 [place]: 199 QRS: 39 QRSD: 94 T: -19 QT: 326 QTc: 444 Interpretive Statements SINUS TACHYCARDIA NONSPECIFIC ST & T-WAVE ABNORMALITY Compared to ECG 01/26/2023 09:56:50 Sinus rhythm no longer present First degree AV block no longer present T-wave abnormality still present Electronically Signed On 04-21-2023 12:09:27 CDT by Kavita Holliday M.D. [id number]
--- NOTE | 2023-04-21 10:25 | W.ED.SYNCOPE ---
HPI - Syncope General: Chief Complaint: Syncope Stated Complaint: SYNCOPE Time Seen by Provider: 04/21/23 09:57 History of Present Illness: 87-year-old male presents to the emergency department chief complaint of having frequent syncopal episodes patient most recently reports last several days getting up from a seated to standing position he has been passing out patient is a longstanding history of back issues but reports no known history of underlying cardiac issues. Patient reports most recently he did not strike his head this was witnessed by the family prior to arrival patient presents to the ER with family present for further assessment management. He does not endorse having any current chest pain or palpitations or any other associated symptoms. Per family the patient has had reduced appetite and oral intake and reduced urination last several days leading up to this. Associated symptoms: Deny abdominal pain, chest pain, fever(s), headache(s) or nausea Review of Systems General: Reports: 10 or more systems reviewed and unremarkable except in HPI and below Const: Reports: change in appetite, fatigue and malaise; Denies: fever(s) or chills Eyes: Denies: change in vision or blurry vision Card: Denies: chest pain or palpitations Resp: Denies: dyspnea or productive cough GI: Denies: abdominal pain, nausea or vomiting : Denies: flank pain Musc: Denies: extremity pain or extremity swelling Skin/Breast: Denies: rash or pruritus Neuro: Reports: frequent falls and other (Syncope); Denies: headache(s) or dizziness Psych: Denies: anxiety or depression Delvin/Lymph: Denies: easy bleeding All/Imm: Denies: urticaria, throat swelling or facial swelling PFS ED PFSH: Medical History Constipation due to opioid therapy DDD (degenerative disc disease) Decubitus ulcer of coccyx GERD (gastroesophageal reflux disease) History of pancreatitis History of prostate cancer Osteoarthritis Osteoporosis Systemic lupus erythematosus Surgical History History of bilateral carpal tunnel release History of hand surgery left trigger finger History of lumbar surgery History of open reduction and internal fixation (ORIF) procedure r femur History of open reduction and internal fixation (ORIF) procedure r elbow History of repair of right rotator cuff History of total bilateral knee replacement Status post insertion of spinal cord stimulator Family History Mother Dementia Father Rheumatoid arthritis Social History Smoking and tobacco status: never smoked Alcohol intake: current Alcohol intake frequency: holidays/special occasions only Substance/Drug Use: never Lives independently: Yes Household members: spouse Marital status: Number of children: 2 Current occupational status: retired 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 Physical Exam Narrative: EXAM NARRATIVE: patient appears somewhat pale and mildly diaphoretic on exam heart rate is elevated at 112 and a sinus rhythm Const: COMMON NORMALS: no acute distress, patient oriented x3 and healthy appearing HENMT: COMMON NORMALS: normocephalic and atraumatic HEAD & SCALP: normocephalic and atraumatic Eye: COMMON NORMALS: Equal, round and reactive pupils present and EOMs intact bilaterally PUPIL: Yes Equal, round and reactive pupils present Neck/C-Spine: COMMON NORMALS: full ROM, supple and no JVD Lymph: LYMPHATIC: no lymphadenopathy noted Chest: COMMONS NORMALS: normal inspection of the chest and normal palpation of entire chest wall Resp: COMMON NORMALS: normal respiratory effort, No retractions and clear to auscultation bilaterally EFFORT & INSPECTION: Yes able to speak in complete sentences and Yes symmetric chest movement AUSCULTATION: clear to auscultation bilaterally Cardio: COMMON NORMALS: no JVD RATE: tachycardic GI: COMMON NORMALS: Normal to inspection, nondistended, normoactive bowel sounds present, Soft to palpation and non-tender INSPECTION: Yes normal to inspection PALPATION: Yes Soft to palpation : COMMON NORMALS: Yes no CVA tenderness BLADDER/KIDNEY EXAM: Yes no CVA tenderness Back/Pelvis: COMMON NORMALS: no CVA tenderness Extremity: COMMON NORMALS: normal to inspection and full ROM Neuro: COMMON NORMALS: patient oriented x3, CN's II-XII intact bilaterally, moves all extremities and no focal motor deficits Psych: COMMON NORMALS: mental status grossly normal, Normal thought process present, cooperative and normal affect THOUGHT PROCESS: Normal thought process present Skin: COMMON NORMALS: no rashes or lesions noted GENERAL SKIN EXAM: no rashes or lesions noted Course Vital Signs: Vital signs: Vital Signs Temperature 98.1 F 04/21/23 09:57 Pulse Rate 92 04/21/23 15:30 Respiratory Rate 16 04/21/23 15:25 Blood Pressure 120/80 04/21/23 15:30 Pulse Oximetry 97 04/21/23 15:30 Oxygen Delivery Me thod Room Air 04/21/23 15:30 MDM - Syncope Medical Decision Making Due to the patient's symptoms and condition basic lab work imaging will be obtained we will continue to follow patient EKG reveals a normal sinus rhythm sinus tachycardia rate of [address]-T segment abnormalities no obvious STEMI appreciated we will continue to follow patient was found accident multiple rib fractures based on his plain film chest x-ray I ended up talking the patient and family she has had frequent falls but no obvious known acute trauma recently to this CT imaging of chest and pelvis was obtained that revealed multiple acute subacute and chronic rib fractures on the right and left chest patient's oxygenation is 94% to 96% he does have some mild respiratory splinting fentanyl was provided for pain control incidentally the patient was also found to have a urinary tract infection in which Rocephin was initiated. I discussed patient's case with Dr. Carpenter general surgeon the does agreed admit the patient to the intensive care unit discussed patient's case with Dr. Gonzalez in which we will be providing him incentive spirometry as well as pain control. Patient remained in stable condition is agreeable to admit observation at this time. Lab Data 04/21/23 09:45 04/21/23 09:45 Radiology Impressions Chest X-Ray 04/21/23 10:15 IMPRESSION: Multiple mildly displaced right rib fractures, suspect 3rd through 8th ribs, with mild right basilar atelectasis, suggestive of flail chest. Chest/Abdomen/Pelvis CT 04/21/23 12:24 IMPRESSION: 1. Multiple bilateral rib fractures at various stages of healing. Acute fractures involve the right 5th through 7th and left 5th ribs, possibly acute on chronic fractures at the right 6th and 7th ribs. Additional subacute and chronic fracture deformities detailed above. 2. Stable moderate compression of the T12 vertebral body. Mild height loss of the T5 through T8 vertebral bodies, age indeterminate and may be physiologic. 3. No acute pleural or pulmonary findings. IMPRESSION: 1. No acute findings. 2. Moderate colonic stool burden with prominent rectal stool ball. 3. Heavy atherosclerosis with 2.9 cm infrarenal abdominal aortic dilatation. Follow-up imaging in 5 years is recommended. 4. Additional chronic and incidental findings as above, to include cholelithiasis and nonobstructive nephrolithiasis. COMMENTS: Consistent with the [place] [employer]'s Incidental Findings Committee white paper (J Am Shu Radiol 2018): Any incidental renal lesion less than 1 cm or classified as too small to characterize, or any incidental cystic renal lesion characterized as simple-appearing, is likely benign. No follow-up imaging is recommended for these lesions per consensus recommendations based on imaging criteria. Head CT 04/21/23 12:24 IMPRESSION: 1. No acute intracranial findings. 2. Chronic sphenoid sinus disease. Laboratory Results WBC 15.1 10^3/uL (4.0-10.0) H 04/21/23 09:45 RBC 3.61 10^6/uL (4.1-5.3) L 04/21/23 09:45 Hgb 10.7 g/dL (11.7-16.6) L 04/21/23 09:45 Hct 35.3 % (42.0-52.0) L 04/21/23 09:45 MCV 97.8 fl (80-94) H 04/21/23 09:45 MCH 29.6 pg (28.0-34.0) 04/21/23 09:45 MCHC 30.3 g/dL (30.0-36.0) 04/21/23 09:45 RDW 17.0 % (12.1-15.1) H 04/21/23 09:45 Plt Count 223 10^3/cmm (130-400) 04/21/23 09:45 MPV 12.0 fL (7.4-10.4) H 04/21/23 09:45 Neut % (Auto) 78.5 % 04/21/23 09:45 Lymph % (Auto) 5.7 % 04/21/23 09:45 Ellis % (Auto) 14.5 % 04/21/23 09:45 Eos % (Auto) 0.0 % 04/21/23 09:45 Baso % (Auto) 0.1 % 04/21/23 09:45 Neut # (Auto) 11.82 10^3/uL (1.8-7.7) H 04/21/23 09:45 Lymph # (Auto) 0.9 10^3/uL (0.8-4.8) 04/21/23 09:45 Ellis # (Auto) 2.2 10^3/uL (0.2-0.9) H 04/21/23 09:45 Eos # (Auto) 0.0 10^3/uL (0.0-0.8) 04/21/23 09:45 Baso # (Auto) 0.0 10^3/uL (0.0-0.1) 04/21/23 09:45 Nucleated RBC % (auto) 0.1 % 04/21/23 09:45 Nucleated RBCs # 0.0 /100WBC 04/21/23 09:45 Sodium 142 mmol/L (136-145) 04/21/23 09:45 Potassium 4.1 mmol/L (3.5-5.1) 04/21/23 09:45 Chloride 102 mmol/L (98-107) 04/21/23 09:45 Carbon Dioxide 26 mmol/L (22-29) 04/21/23 09:45 Anion Gap 18.1 (5-19) 04/21/23 09:45 BUN 42 mg/dL (8-23) H 04/21/23 09:45 Creatinine 1.0 mg/dL (0.7-1.2) 04/21/23 09:45 GFR Calculation Not Reportable 04/21/23 09:45 Glucose 153 mg/dL (65-115) H 04/21/23 09:45 Calculated Osmolality 308 mOsm/kg (285-295) H 04/21/23 09:45 Lactic Acid 1.7 mmol/L (0.5-2.2) 04/21/23 11:19 Calcium 8.8 mg/dL (8.5-10.5) 04/21/23 09:45 Total Bilirubin 1.3 mg/dL (0.15-1.2) H 04/21/23 09:45 AST 13 U/L (0-40) 04/21/23 09:45 ALT 16 U/L (0-41) 04/21/23 09:45 Alkaline Phosphatase 249 U/L (40-130) H 04/21/23 09:45 Troponin T Baseline 34 ng/L (0-15) H 04/21/23 09:45 Troponin T 120 Minute 35.52 ng/L (0-15) H 04/21/23 12:20 Delta Troponin T 1.52 ABS# (0-10) 04/21/23 12:20 C-Reactive Protein 29.7 mg/L (0.0-4.9) H 04/21/23 09:45 NT-Pro-B Natriuret Pep 1743 pg/mL (0-450) H 04/21/23 09:45 Total Protein 6.1 g/dL (6.6-8.7) L 04/21/23 09:45 Albumin 3.7 g/dL (3.5-5.2) 04/21/23 09:45 Globulin 2.4 g/dL (1.3-4.6) 04/21/23 09:45 Urine Color Yellow (Yellow) 04/21/23 13:45 Urine Appearance Sl hazy (CLEAR) A 04/21/23 13:45 Urine pH 5 (5-7) 04/21/23 13:45 Ur Specific Abbot 1.015 (1.005-1.030) 04/21/23 13:45 Urine Protein 1+ (Negative) H 04/21/23 13:45 Urine Glucose (UA) Norm (Normal) 04/21/23 13:45 Urine Ketones 1+ (Negative) H 04/21/23 13:45 Urine Blood Neg (Negative) 04/21/23 13:45 Urine Nitrate Negative (Negative) 04/21/23 13:45 Urine Bilirubin 1+ (Negative) H 04/21/23 13:45 Urine Urobilinogen 1 mg/dL (Negative) H 04/21/23 13:45 Ur Leukocyte Esterase 1+ (Negative) H 04/21/23 13:45 Urine RBC >100 /hpf (0-2) H 04/21/23 13:45 Urine WBC 10-15 /hpf (0-5) H 04/21/23 13:45 Ur Squamous Epith Cells 0-4 /hpf (0-5) H 04/21/23 13:45 Amorphous Sediment Not Reportable 04/21/23 13:45 Urine Bacteria 1+ /hpf (NONE) H 04/21/23 13:45 Coronavirus 229E (PCR) Not detected (NOT DETECT) 04/21/23 11:00 SARS-CoV-2 (PCR) Not detected (NOT DETECT) 04/21/23 11:00 Discharge Plan Discharge Patient Disposition: Placed in Observation Admit Provider: Husam Gonzalez Clinical Impression: Multiple fractures of ribs, Falls frequently, Urinary tract infection Coding Level of Care Code ED Product Design Specialist for Felicity Orozco
[2023-04-21 10:32] LABS: Basophils % 0.1 %; Hematocrit 35.3 % (42.0-52.0); Hemoglobin 10.7 g/dL (11.7-16.6); Lymphocytes # 0.9 10^3/uL (0.8-4.8); Lymphocytes % 5.7 %; Mean Corpuscular HGB Conc 30.3 g/dL (30.0-36.0); Mean Corpuscular Hemoglobin 29.6 pg (28.0-34.0); Mean Corpuscular Volume 97.8 fl (80-94); Monocytes # 2.2 10^3/uL (0.2-0.9); Monocytes % 14.5 %; Neutrophils # 11.82 10^3/uL (1.8-7.7); Neutrophils % 78.5 %; Nucleated Red Blood Cells % 0.1 %; Platelet Count 223 10^3/cmm (130-400); Red Blood Count 3.61 10^6/uL (4.1-5.3); White Blood Count 15.1 10^3/uL (4.0-10.0)
[2023-04-21] MEDS: sodium chloride 0.9% 1,000 ML 999 ML IV ×2 (10:36→23:11)
--- NOTE | 2023-04-21 10:40 | PC.PHAR ---
Addendum entered by Vivian Chow 04/21/23 10:46: PTS DAUGHTER STATES THE PTS GABAPENTIN 100MG BID WAS DCED EXT SHOWS LAST FILLED 04/06/23 90D/S Original Note: PTS DAUGHTER VERIFIED PTS MEDICATIONS-EXT MED HISTORY SHOWS LEFLUNOMIDE 20MG DAILY FILLED 04/06/23 90D/S-ULTRAM 50MG BID PRN PAIN FILLED 04/04/23 30D/S-PREDNISONE 2.5MG DAILY FILLED 02/09/23 90D/S-PANTOPRAZOLE 40MG DAILY FILLED 01/31/23 90D/S AND METOPROLOL TARTRATE 25MG TAKE 12.5MG BID FILLED 01/19/23 90D/S PTS DAUGHTER STATES THE PT DOESNT TAKE THOSE MEDICATIONS PER PAT RPH FROM [facility] STATES THAT THEY FILLED THAT MEDICATION FOR THE PTS [place] [employer] [place] PAT STATES OUR SYSTEM MUST BE PULLING UP KUN INSTEAD OF OSWALDO P MEDS-PTS DAUGHTER STATES THE PT HAS HALLUCINATIONS WHEN HE TAKES [place] BUT STATES WHEN HES IN SEVERE PAIN THEY WILL GIVE HIM HALF A TAB PRN-PTS DAUGHTER STATES THE PT JUST STARTED TAKING CYMBALTA 30MG ON Sun04/18/23-NOTES ARE MADE IN THE PHARMACY COMMENTS
[2023-04-21 11:00] LABS: Troponin(5th) Baseline 34 ng/L (0-15)
[2023-04-21 11:10] LABS: Alanine Aminotransferase 16 U/L (0-41); Albumin Level 3.7 g/dL (3.5-5.2); Alkaline Phosphatase 249 U/L (40-130); Anion Gap 18.1 (5-19); Aspartate Amino Transferase 13 U/L (0-40); Blood Urea Nitrogen 42 mg/dL (8-23); C Reactive Protein 29.7 mg/L (0.0-4.9); Calcium 8.8 mg/dL (8.5-10.5); Carbon Dioxide 26 mmol/L (22-29); Chloride 102 mmol/L (98-107); Globulin 2.4 g/dL (1.3-4.6); Glucose 153 mg/dL (65-115); NT Pro B Type Natriuretic Pept 1743 pg/mL (0-450); Osmolality Calculated 308 mOsm/kg (285-295); Potassium 4.1 mmol/L (3.5-5.1); Sodium 142 mmol/L (136-145); Total Bilirubin 1.3 mg/dL (0.15-1.2); Total Protein 6.1 g/dL (6.6-8.7)
[2023-04-21 12:12] LABS: Lactic Sepsis W/Reflex 1.7 mmol/L (0.5-2.2)
--- NOTE | 2023-04-21 12:20 | ECG_ITS ---
[facility] Test Date: 2023-04-21 Pat Name: Srikanth Crocker Department: Room: Gender: Male [employer] Tender: : 1935 Requested By: Donald Staples Order Number: [id number] Anthony MD: Kavita Holliday M.D. Measurements Intervals [place] Rate: 102 P: 35 CA: 195 QRS: 46 QRSD: 93 T: 2 QT: 333 QTc: 435 Interpretive Statements SINUS TACHYCARDIA NONSPECIFIC ST & T-WAVE ABNORMALITY ABNORMAL RHYTHM ECG Compared to ECG 04/21/2023 10:15:09 Ventricular premature complex(es) now present T-wave abnormality still present Electronically Signed On 04-21-2023 14:57:09 CDT by Kavita Holliday M.D. [id number]
--- NOTE | 2023-04-21 12:24 | CTR_ITS ---
PROCEDURE INFORMATION: Exam: CT Chest With Contrast; Diagnostic Exam date and time: 04/21/2023 1:19 PM Age: 87 years old Clinical indication: Injury or trauma; Fall; Generalized; Blunt trauma (contusions or hematomas); Additional info: Reported fall, multiple rib fractures on cxr TECHNIQUE: Imaging protocol: Diagnostic computed tomography of the chest with contrast. Radiation optimization: All CT scans at this facility use at least one of these dose optimization techniques: automated exposure control; mA and/or kV adjustment per patient size (includes targeted exams where dose is matched to clinical indication); or iterative reconstruction. Contrast material: OMNI 350; Contrast volume: 100 ml; Contrast route: INTRAVENOUS (IV); REPORTING DATA: Count of CT and Cardiac NM exams in prior 12 months: This patient has received 2 known CTs and 0 known cardiac nuclear medicine studies in the 12 months prior to the current study. COMPARISON: 1. CR (CHEST, ) 04/21/2023 10:[address] lumbar spine wo con* [id number] 03/14/2023 1:[address] abdomen pelvis wo con [id number] 04/17/2022 9:37 PM RADIATION DOSE METRICS: Total DLP (mGy-cm): 1069.79 FINDINGS: Thyroid: Multiple bilateral subcentimeter thyroid nodules require no dedicated imaging follow-up. Lungs: Mild linear scarring versus atelectasis at the right lung and left lung base. No consolidation. Calcified left granulomata. Pleural spaces: No pleural effusion or pneumothorax. Heart: Mild aortic valve and mitral annular calcification. No cardiomegaly. Minimal pericardial fluid without substantial effusion. Coronary arteries: Mild coronary artery calcification. Lymph nodes: No enlarged lymph nodes. Calcified mediastinal lymph nodes in keeping with sequela of old granulomatous disease. Vasculature: Mild systemic atherosclerotic calcification without aortic aneurysm. Bones/joints: Minimally displaced acute lateral right 5th, 6th, and 7th rib fractures. Minimally displaced acute lateral left 5th rib fracture. Subacute rib fractures at the anterolateral right 2nd through 6th ribs and anterolateral left 2nd through 7th ribs. More chronic appearing rib fractures at the posterolateral right 3rd through 5th ribs, posterolateral right 7th through 11th ribs. Old fracture deformity of the right 10th rib head. Chronic rib fracture deformity of the lateral 6th and 8th ribs as well as the posterior left 11th and 12th ribs and 11th rib neck. Possible acute on chronic fractures at the posterior right 6th and 7th ribs. Mild height loss of the T5 through T8 vertebral bodies, age indeterminate and may be physiologic. Stable moderate height loss of the T11 vertebral body. Moderate compression deformity of the T12 vertebral body is stable from March 2023. Soft tissues: Partially visualized lead coursing along the left paramedian back subcutaneous layer. COMMENTS: Consistent with the [employer]'s Incidental Findings Committee white paper (J Am Shu Radiol 2015): In patients aged 35 years and older with an incidental thyroid nodule equal to or greater than 1.[address], MRI or extrathyroidal US, further evaluation with dedicated thyroid US is recommended for patients with normal life expectancy and without comorbidities. For smaller nodules without suspicious features, no further evaluation or follow up is recommended. PROCEDURE INFORMATION: Exam: CT Abdomen And Pelvis With Contrast Exam date and time: 04/21/2023 1:19 PM Age: 87 years old Clinical indication: Injury or trauma; Fall; Generalized; Blunt trauma (contusions or hematomas); Additional info: Reported fall, multiple rib fractures on cxr TECHNIQUE: Imaging protocol: Computed tomography of the abdomen and pelvis with contrast. Radiation optimization: All CT scans at this facility use at least one of these dose optimization techniques: automated exposure control; mA and/or kV adjustment per patient size (includes targeted exams where dose is matched to clinical indication); or iterative reconstruction. Contrast material: OMNI 350; Contrast volume: 100 ml; Contrast route: INTRAVENOUS (IV); REPORTING DATA: Count of CT and Cardiac NM exams in prior 12 months: This patient has received 2 known CTs and 0 known cardiac nuclear medicine studies in the 12 months prior to the current study. COMPARISON: 1. CT abdomen pelvis wo con [id number] 04/17/2022 9:[address] lumbar spine wo con* [id number] 03/14/2023 1:17 PM RADIATION DOSE METRICS: Total DLP (mGy-cm): 1069.79 FINDINGS: Liver: Normal without focal lesions. Gallbladder and bile ducts: Cholelithiasis. No biliary ductal dilatation. Pancreas: Mild scattered pancreatic calcifications in keeping with chronic sequela of pancreatitis. No ductal dilatation. Spleen: Normal. Adrenal glands: Normal. No mass. Kidneys and ureters: Bilateral renal cysts are present, as well as other subcentimeter hypodensities which are too small to characterize. Multiple bilateral renal calculi. 1.6 cm calcified stone in the right renal pelvis. Ureters are normal. Stomach and bowel: No dilatation. No evidence of mucosal thickening. Moderate colonic stool burden with prominent rectal stool ball. Appendix: No evidence of appendicitis. Intraperitoneal space: No free air, free fluid, or well-organized fluid collection. Vasculature: Heavy systemic atherosclerotic calcification with lower infrarenal abdominal aorta fusiform dilatation measuring 2.9 cm in AP dimension on axial image 49 of series 5. Lymph nodes: No enlarged lymph nodes. Urinary bladder: Urinary bladder is unremarkable. Reproductive: Central prostatic calcifications. Bones/joints: Grossly stable compression deformities from L1-3 status post L1 and L2 vertebral body augmentation. Degenerative changes along the imaged axial and proximal appendicular skeletal system. Soft tissues: Small fat containing bilateral inguinal hernias. Left lower back generator with single lead coursing superiorly along the left paramedian back subcutaneous layer. CT/CT chest abdpel w/*[id number] IMPRESSION: 1. Multiple bilateral rib fractures at various stages of healing. Acute fractures involve the right 5th through 7th and left 5th ribs, possibly acute on chronic fractures at the right 6th and 7th ribs. Additional subacute and chronic fracture deformities detailed above. 2. Stable moderate compression of the T12 vertebral body. Mild height loss of the T5 through T8 vertebral bodies, age indeterminate and may be physiologic. 3. No acute pleural or pulmonary findings. IMPRESSION: 1. No acute findings. 2. Moderate colonic stool burden with prominent rectal stool ball. 3. Heavy atherosclerosis with 2.9 cm infrarenal abdominal aortic dilatation. Follow-up imaging in 5 years is recommended. 4. Additional chronic and incidental findings as above, to include cholelithiasis and nonobstructive nephrolithiasis. COMMENTS: Consistent with the [employer]'s Incidental Findings Committee white paper (J Am Shu Radiol 2018): Any incidental renal lesion less than 1 cm or classified as too small to characterize, or any incidental cystic renal lesion characterized as simple-appearing, is likely benign. No follow-up imaging is recommended for these lesions per consensus recommendations based on imaging criteria.
--- NOTE | 2023-04-21 12:24 | CTR_ITS ---
PROCEDURE INFORMATION: Exam: CT Head Without Contrast Exam date and time: 04/21/2023 1:14 PM Age: 87 years old Clinical indication: Weakness, extremity TECHNIQUE: Imaging protocol: Computed tomography of the head without contrast. Radiation optimization: All CT scans at this facility use at least one of these dose optimization techniques: automated exposure control; mA and/or kV adjustment per patient size (includes targeted exams where dose is matched to clinical indication); or iterative reconstruction. REPORTING DATA: Count of CT and Cardiac NM exams in prior 12 months: This patient has received 2 known CTs and 0 known cardiac nuclear medicine studies in the 12 months prior to the current study. COMPARISON: CT head wo con* [id number] 02/01/2023 11:28 AM RADIATION DOSE METRICS: Total DLP (mGy-cm): 1123.18 FINDINGS: Brain: Diffuse cerebral atrophy. No hemorrhage. Preserved mckeon-white matter differentiation. Mild patchy cerebral white matter hypoattenuation likely on the basis of chronic microvascular ischemic change. No mass effect. Intracranial vascular calcifications. Cerebral ventricles: Ventricles are in proportion to the degree of atrophy. Paranasal sinuses: Near complete opacification of the sphenoid sinuses with associated periosteal thickening, stable. Otherwise clear. Mastoid air cells: Visualized mastoid air cells are well aerated. Bones/joints: Unremarkable. No acute fracture. Soft tissues: Unremarkable. CT/CT head wo con* [id number] IMPRESSION: 1. No acute intracranial findings. 2. Chronic sphenoid sinus disease.
[2023-04-21 13:17] LABS: Troponin 5 2HR 35.52 ng/L (0-15)
[2023-04-21] MEDS: iohexol 350 mg/mL 500 mL Btl (per mL) IV (13:22)
[2023-04-21 13:30] LABS: Troponin 5 2HR Delta 1.52 ABS# (0-10)
[2023-04-21 13:39] LABS: Adenovirus Not Detected (NOT DETECT); Chlamydia Pneumoniae Not Detected (NOT DETECT); Coronavirus 229E,HKU1,NL63,OC4 Not Detected (NOT DETECT); Human Metapneumovirus Not Detected (NOT DETECT); Human Rhinovirus/Enterovirus Not Detected (NOT DETECT); Influenza A Not Detected (NOT DETECT); Influenza A H1 Not Detected (NOT DETECT); Influenza A H1-2009 Not Detected (NOT DETECT); Influenza A H3 Not Detected (NOT DETECT); Influenza B Not Detected (NOT DETECT); Mycoplasma Pneumoniae Not Detected (NOT DETECT); Parainfluenza Virus Type 1 Not Detected (NOT DETECT); Parainfluenza Virus Type 2 Not Detected (NOT DETECT); Parainfluenza Virus Type 3 Not Detected (NOT DETECT); Parainfluenza Virus Type 4 Not Detected (NOT DETECT); Respiratory Syncytial Virus A Not Detected (NOT DETECT); Respiratory Syncytial Virus B Not Detected (NOT DETECT); SARS-COV-2 Not Detected (NOT DETECT)
[2023-04-21 14:32] LABS: Specific Gravity, Urine 1.015 (1.005-1.030); Urine Appearance SL Hazy (CLEAR); Urine Color Yellow (Yellow); pH Urine 5 (5-7)
[2023-04-21 14:33] LABS: Bilirubin Urine 1+ (Negative); Blood Urine Neg (Negative); Glucose Urine UA Norm (Normal); Ketones Urine 1+ (Negative); Leukocyte Esterase Urine 1+ (Negative); Nitrate Urine Negative (Negative); Protein Urine 1+ (Negative); Urobilinogen Urine 1 mg/dL (Negative)
[2023-04-21 14:36] LABS: Add Urine Microscopic? YES
[2023-04-21 14:37] LABS: Add Urine Culture? Yes; Bacteria Urine 1+ /hpf; RBC Urine >100 /hpf (0-2); Squamous Epithelial Cell Urine 0-4 /hpf (0-5)
[2023-04-21] MEDS: fentaNYL 50 mcg/mL INJ 2mL IVP (15:25)
--- NOTE | 2023-04-21 16:20 | ECG_ITS ---
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 Measurements Intervals [place] Rate: 93 P: 7 WI: 186 QRS: 41 QRSD: 90 T: -15 QT: 333 QTc: 416 Interpretive Statements SINUS RHYTHM NONSPECIFIC ST & T-WAVE ABNORMALITY Compared to ECG 04/21/2023 13:05:58 Sinus tachycardia no longer present T-wave abnormality still present Electronically Signed On 04-21-2023 23:27:53 CDT by Kavita Holliday M.D. [id number]
[2023-04-21 17:04] LABS: Troponin 5 6HR 39.58 ng/L (0-15)
[2023-04-21 17:08] LABS: Troponin 5 6HR Delta 5.58 ng/L (0-12)
--- NOTE | 2023-04-21 18:22 | P.HP_ITS ---
Providers/Chief Complaint Admitting Physician: Husam Gonzalez Primary Care Provider: Rukhsana Gutierrez MD Chief Complaint: SYNCOPE History of Present Illness Pleasant 87-year-old gentleman with history of SLE, hard of hearing, does not have his hearing aids here with him, was brought in for evaluation due to reported syncopal episodes, previously with fall, vertebral fracture back in February, status post vertebroplasty, in ER again noted to have T12 compression fracture, stable, mild height loss T5-T8, age-indeterminate, but also multiple bilateral rib fractures at various stages of healing, acute lateral right 5-7 fractures, subacute right 2-6 fractures, acute fifth rib fracture as well as subacute 2-7th. Surgery was contacted and requested for admission with surgery follow-up, ER contacted for admission under hospitalist. He is maintaining saturation on room air. Denies shortness of breath. No chest pain other than some pain in his back on inspiration. Other incidental findings on CT abdomen pelvis discussed with his family including moderate colonic stool burden, 2.9 cm infrarenal abdominal aortic aneurysm. In ER he additionally is noted with abnormal UA, more than 100 RBC, 10-15 WBC, 0-4 SEC, 1+ bacteria. Urinary bladder unremarkable. Bilateral urinalysis, other subcentimeter hypodensities too small to characterize, 1.6 cm calcified stone in the right renal pelvis. Ureters normal. Review of Systems Const: Denies: fever(s) ENMT: Denies: throat pain Card: Denies: chest pain GI: Denies: nausea, vomiting or diarrhea : Denies: flank pain Musc: Reports: back pain (On inspiration) Medications/Allergies Home Medications Medication Instructions Recorded Confirmed Last Taken Type cholecalciferol (vitamin D3) 50 50 mcg PO QAM 12/22/22 04/21/23 04/21/23 History mcg (2,000 unit) capsule hydroxychloroquine 200 mg tablet 200 mg PO BID #60 tabs 01/08/23 04/21/23 04/21/23 Rx (Plaquenil) docusate sodium 100 mg capsule 100 mg PO DAILY PRN Constipation 02/01/23 04/21/23 Unknown History (Colace) multivitamin 1 tab PO EVERY OTHER DAY 02/01/23 04/21/23 02/01/23 History acetaminophen 650 mg 1,300 mg PO Q8H 03/14/23 04/21/23 04/21/23 History tablet,extended release (Tylenol 8 Hour) duloxetine 30 mg capsule,delayed 30 mg PO QAM 04/21/23 04/21/23 04/21/23 History release (Cymbalta) hydrocodone 5 mg-acetaminophen 325 1 - 2 tab PO .EVERY 4-6 HOURS PRN 04/21/23 04/21/23 Unknown History mg tablet Pain naproxen sodium 220 mg tablet 220 mg PO BID 04/21/23 04/21/23 04/21/23 History (Aleve) Allergies Allergy/AdvReac Type Severity Reaction Status Date / Time hydrocodone [From [place]] Allergy Intermediate ADR-halluci Verified 04/21/23 10:28 nations PFSH Acute PFSH: Medical History Constipation due to opioid therapy DDD (degenerative disc disease) Decubitus ulcer of coccyx GERD (gastroesophageal reflux disease) History of pancreatitis History of prostate cancer Osteoarthritis Osteoporosis Systemic lupus erythematosus Surgical History History of bilateral carpal tunnel release History of hand surgery left trigger finger History of lumbar surgery History of open reduction and internal fixation (ORIF) procedure r femur History of open reduction and internal fixation (ORIF) procedure r elbow History of repair of right rotator cuff History of total bilateral knee replacement Status post insertion of spinal cord stimulator Family History Mother Dementia Father Rheumatoid arthritis Social History Smoking and tobacco status: never smoked Alcohol intake: current Alcohol intake frequency: holidays/special occasions only Substance/Drug Use: never Lives independently: Yes Household members: spouse Marital status: Number of children: 2 Current occupational status: retired 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 Vitals/I&O/Wt Last Vital Signs Temp 98.1 F 04/21/23 09:57 Pulse 85 04/21/23 17:23 Resp 19 H 04/21/23 16:00 BP 111/75 04/21/23 16:00 Pulse Ox 95 04/21/23 17:23 O2 Del Method Room Air 04/21/23 17:23 O2 Flow Rate 2 04/21/23 16:00 04/21/23 04/21/23 04/21/23 06:59 14:59 22:59 Intake Total 1000 / 1000 Balance 1000 / 1000 Weight last 48 hrs Weight 83.915 kg Physical Exam Const: COMMON NORMALS: patient oriented x3 and alert GENERAL APPEARANCE: cooperative ORIENTATION/CONSCIOUSNESS: Yes awake HENMT: COMMON NORMALS: oropharynx normal Neck/C-Spine: COMMON NORMALS: no JVD Resp: COMMON NORMALS: normal respiratory effort and clear to auscultation bilaterally AUSCULTATION: clear to auscultation bilaterally Cardio: COMMON NORMALS: no JVD, regular rhythm, S1 normal heart sound present, S2 normal heart sound present and No murmurs present (Cardio) RHYTHM: regular rhythm HEART SOUNDS: S1 normal heart sound present and S2 normal heart sound present GI: COMMON NORMALS: Normal to inspection, nondistended, normoactive bowel sounds present, Soft to palpation and non-tender PALPATION: Yes Soft to palpation Extremity: COMMON NORMALS: no joint enlargement and no pedal edema Neuro: COMMON NORMALS: patient oriented x3 and moves all extremities SENSORIUM/ORIENTATION: Yes alert Skin: COMMON NORMALS: no rashes or lesions noted GENERAL SKIN EXAM: no rashes or lesions noted Urinary Catheter Management: [place]: Cath Placed During This Visit: yes Urinary Catheter Date of Insertion: 04/21/23 Urinary Catheter Time of Insertion: 15:44 Data 04/21/23 09:45 04/21/23 09:45 A&P Assessment and plan (1) Multiple fractures of ribs: Requested hospitalization on discussion by surgery with your physician. At risk of pneumonia, respiratory failure, pain, risk with pain management, discussed with family. He is not in any severe pain, although did receive fentanyl in ER. Blood pre ssure noted soft after fentanyl. Monitor. Discussed consideration of other pain modalities including lidocaine patch, Tylenol, capsaicin, with him and family. Added Dilaudid in case of severe pain, but hopefully may avoid opioids. At risk of worsening constipation, hypotension, confusion and other complications with opioids. At current time risks to great to continue NSAIDs. Noted also anemia, hemoglobin down to 10.7. Recheck hemoglobin. With risk of pneumonia, discussed incentive spirometer, added. Monitor oxygenation. Monitor for signs of pneumonia. Unclear reason of multiple fractures, has had multiple prior falls, appears about a year ago, as well as back in February, and ER documentation reported multiple syncopal episodes, although family denies that he has had multiple falls here recently. Question is of possible fractures with repositioning with having to wrap arms around his chest. Question of possible pathologic fractures. With history of SLE I see multiple prior courses of steroids. Possible pathologic/osteoporotic fractures. Will need follow-up with consideration of treatment. History obtained from patient's and daughter as patient is very hard of hearing. They are going to bring his hearing aid. (2) Urinary tract infection: Appears may have UTI, more than 100 RBC, 10-15 WBC. 0-4 SEC. 1+ bacteria. No ureter nephrosis. Hematuria appears may be secondary to right renal pelvic stone. Discussed with [facility], no hydronephrosis while lying down. Start ceftriaxone. Noted to have leukocytosis 15,000. Additionally blood press ure currently soft, although this appears to be after fentanyl. Improving. Monitor in ICU. Follow-up urine culture. (3) Syncope: Reported possible syncopal episodes. Check orthostatics once blood pressure is better. Currently hypotensive, noted after fentanyl, improving, however, question of possibility of adrenal insufficiency cannot be excluded, for now will give stress dose hydrocortisone with possible adrenal insufficiency in setting of UTI, check serum cortisol. Monitor blood pressure. Complete troponin EKG series. Mild elevation so far, no suggestion of acute NE. Check TTE. (4) Intractable low back pain: Chronic back pain, vertebral compression fracture, status post vertebroplasty, has been on NSAID at home, however, currently risk too high, discussed concerns with family. Will attempt additional local measures, opioid if needed for severe pain, we discussed risks with opioid as well. (5) Traumatic compression fracture of lumbar vertebra: As above. (6) Constipation due to opioid therapy: Add bowel regimen, MiraLAX, lactulose. (7) Abdominal aortic aneurysm: Incidentally noted on CT abdomen pelvis. Discussed with family, follow-up outpatient. (8) Choledocholithiasis: Incidentally noted on CT. Noted hyperbilirubinemia 1.3, alk phos 249. No abdominal pain. No GI symptoms. No biliary duct dilation. Reassess liver parameters. Monitor for change in symptoms. (9) Nephrolithiasis: Incidentally noted on CT, 1.6 cm calcified right renal pelvic stone. Possibly responsible for hematuria. Question of contribution to UTI. Consider follow-up with urology. Discussed with [facility], no hydronephrosis while lying down. (10) Decubitus ulcer of coccyx: Reposition frequently. Wound care. Nutrition supplementation. Plan SLE: Hold hydroxychloroquine for now GERD: PPI DDD OA Discussed with ER physician. ER documentation reviewed. Attestations Medical Necessity Statement*: Place in observation for additional assessment management of multiple rib fractures, multiple episodes of syncope, UTI, possible adrenal sufficiency, a dditional comorbidities as above. Diagnoses Multiple fractures of ribs S22.49XA Urinary tract infection N39.0 Syncope R55 Intractable low back pain M54.59 Traumatic compression fracture of lumbar vertebra S32.000A Constipation due to opioid therapy K59.03; T40.2X5A Abdominal aortic aneurysm I71.40 Choledocholithiasis K80.50 Nephrolithiasis N20.0 Decubitus ulcer of coccyx L89.159
[2023-04-21] MEDS: cefTRIAXone 1,000 MG in sodium chloride 0.9% (plus) 50 ML 100 MG IV (18:47)
[2023-04-21] MEDS: lactulose oral liq 20 gm/30 mL UDC PO ×2 (18:48→23:59)
--- NOTE | 2023-04-21 18:50 | PC.NURSE ---
Pt recently arrived to ICU from ED. He is on room air. He does have expiratory wheezing on the right . other portillo no other respiratory issues identified. He ate most of his meal. He does grimace with movement of his trunk. He had 500 ml of dark yellow urine noted in patent mcknight. He is hard of hearing, does not have his hearing aids present at this time.
[2023-04-21 20:16] LABS: Hemoglobin 7.5 g/dL (11.7-16.6)
[2023-04-21] MEDS: hydrocortisone 100 mg/2 mL SDV IVP (20:22)
[2023-04-21] MEDS: pantoprazole 40 mg SDV IVP (20:22)
[2023-04-21] MEDS: capsaicin 0.025% cream 60 gm 1 APPLIC TOPICAL (21:32)
[2023-04-21] MEDS: lidocaine 5% Patch 1 PATCH TOPICAL (21:51)
[2023-04-21 22:01] LABS: Glucose Point of Care 155 mg/dL (70-110)
[2023-04-21 22:58] LABS: Cortisol Random 28.27 ug/dL (2.47-19.5)
--- NOTE | 2023-04-21 23:15 | PC.NURSE ---
Physician Communication At approximately 2200, patient pale and diaphoretic with a HR ranging from low 90s to 120s and soft blood pressures, MAP ranging from 62-67. Patient's hemoglobin also noted to be decreased from 10.[address] Roman contacted; orders placed to complete a type and screen, transfuse 1 unit of blood, and increase protonix to q12h. , Sveta Crocker, contacted for blood product consent with no success; message left via voicemail. Daughter, Marleny Simpson, contacted secondly. Consent received and verified with this nurse as well as MILLY Wu. At 2300, patient's blood pressure decreased further to 74/37. Dr. Roman contacted and order received for 1L NS bolus IV once. See MAR for details.
[2023-04-21] MEDS: sodium chloride 0.9% 100 mL Bag 50 ML IV (23:40)
[2023-04-22] VITALS (83 sets, daily range): BP systolic 89–154; BP diastolic 45–79; PULSE 80–109; RESP 15–35; TEMP 34.7–36.6; O2SAT 90–100; BMI 25.2
[2023-04-22] MEDS: hydrocortisone 100 mg/2 mL SDV IVP ×3 (02:18→13:58)
[2023-04-22 03:34] LABS: Basophils % 0.1 %; Eosinophils % 0.1 %; Hematocrit 26.7 % (42.0-52.0); Hemoglobin 8.7 g/dL (11.7-16.6); Lymphocytes # 0.4 10^3/uL (0.8-4.8); Lymphocytes % 2.1 %; Mean Corpuscular HGB Conc 32.6 g/dL (30.0-36.0); Mean Corpuscular Hemoglobin 30.7 pg (28.0-34.0); Mean Corpuscular Volume 94.3 fl (80-94); Monocytes # 1.5 10^3/uL (0.2-0.9); Neutrophils # 14.76 10^3/uL (1.8-7.7); Neutrophils % 87.2 %; Nucleated Red Blood Cells % 0.2 %; Platelet Count 150 10^3/cmm (130-400); Red Blood Count 2.83 10^6/uL (4.1-5.3); Red Cell Distribution Width 17.3 % (12.1-15.1); White Blood Count 16.9 10^3/uL (4.0-10.0)
[2023-04-22 03:56] LABS: Alanine Aminotransferase 11 U/L (0-41); Alkaline Phosphatase 178 U/L (40-130); Aspartate Amino Transferase 10 U/L (0-40); Blood Urea Nitrogen 77 mg/dL (8-23); Calcium 8.2 mg/dL (8.5-10.5); Carbon Dioxide 23 mmol/L (22-29); Chloride 101 mmol/L (98-107); Globulin 1.7 g/dL (1.3-4.6); Glucose 131 mg/dL (65-115); Osmolality Calculated 303 mOsm/kg (285-295); Sodium 134 mmol/L (136-145); Total Protein 4.7 g/dL (6.6-8.7)
--- NOTE | 2023-04-22 06:00 | USCV_ITS ---
ObiSrikanth Age: 87 Gender: M : 1935 Exam Date: 04/22/2023 06:21 Ordering Phys: Husam Gonzalez MD Technologist: Fernie Gomez Exam Location: [facility] [place] Indication: syncope BP: 136 / 69 HR: 94 Rhythm: Sinus Technical Quality: Adequate MEASUREMENTS (Male / Female) Normal Values 2D ECHO LVOT Diameter 2.0 cm LV Ejection Fraction MOD 2C 63.5 % LV Ejection Fraction 2C AL 66.9 % LA Diameter 3.9 cm LA Width 3.2 cm LA Height 5.5 cm RA Width 3.9 cm RA Height 4.5 cm Aorta at Sinotubular Diameter 2.4 cm M-MODE Aortic Annulus Diameter 2.6 cm LA Ao Ratio MM 1.2 MV E Point Septal Separation 0.6 cm DOPPLER AV Peak Velocity 196.7 cm/s LVOT Peak Velocity 117.0 cm/s AV Area Cont Eq vti 2.4 cm squared AV Area Cont Eq pk 1.9 cm squared MV Peak Velocity 96.0 cm/s MV Area PHT 8.1 cm squared Mitral E to A Ratio 0.4 MV E' Velocity 23.0 cm/s Mitral E to MV E' Ratio 3.6 Mitral E to LV E' Lateral Ratio 3.3 Mitral E to LV E' Septal Ratio 4.1 Right Atrial Pressure 8.0 mmHg PV Peak Velocity 129.0 cm/s RV Acceleration Time 0.1 s RV Ejection Time 0.2 s RV AcT/ET 0.6 FINDINGS Left Ventricle Normal left ventricular size, systolic function and wall thickness, with no diagnostic regional wall motion abnormalities. Left ventricular ejection fraction is estimated at 70 %. Abnormal diastolic function. Right Ventricle Normal right ventricular size and systolic function. Right Atrium Normal right atrial size. Left Atrium Normal left atrial size. Mitral Valve Structurally normal mitral valve. No mitral valve stenosis. Trace mitral valve regurgitation. Aortic Valve Aortic valve not well visualized. No aortic valve stenosis. No aortic valve regurgitation. Tricuspid Valve Structurally normal tricuspid valve. No significant tricuspid valve regurgitation. Pulmonic Valve Pulmonic valve not well visualized. Pericardium No pericardial effusion. Aorta Normal size aortic root and proximal ascending aorta. IVC Inferior vena cava not visualized. CONCLUSIONS 1. Normal left ventricular size, systolic function and wall thickness, with no diagnostic regional wall motion abnormalities. Left ventricular ejection fraction is estimated at 70 %. Abnormal diastolic function. 2. No significant change when compared to study dated 10/17/2014. Kavita Holliday MD (Electronically Signed) Final Date: 22 April 2023 13:22 S
[2023-04-22] MEDS: lactulose oral liq 20 gm/30 mL UDC PO (06:10)
[2023-04-22] MEDS: morphine 4 mg/mL SDV 1 mL 2 MG IVP (06:19)
[2023-04-22] MEDS: pantoprazole 40 mg SDV IVP ×2 (07:57→20:00)
--- NOTE | 2023-04-22 08:41 | PC.OT ---
Due to OT weekend protocol, evaluation will be addressed on Sunday.
[2023-04-22 09:20] LABS: Iron 93 ug/dL (59-158)
[2023-04-22 09:32] LABS: Percent Saturation 76.8 % (20-50); Total Iron Binding Capacity 121 mcg/dl; Unsaturated Iron Binding 28 ug/dL (112-347)
[2023-04-22 09:38] LABS: Ferritin 2211 ng/mL (30-400)
[2023-04-22] MEDS: HYDROmorphone 1 mg/mL INJ 1 mL 0.2 MG IVP (09:45)
[2023-04-22] MEDS: magnesium citrate Btl 296 mL PO (09:47)
[2023-04-22] MEDS: peg /e-lyte soln 4,000 mL Btl 4000 ML PO (09:53)
--- NOTE | 2023-04-22 10:18 | P.CONIM_ITS ---
Providers/Reason For Consult Consulting Physician/Specialty*: Dr. Cody Lozano, DO/General surgery Reason for Consult*: Multiple rib fractures and anemia Attending Physician: Husam Gonzalez Primary Care Provider: Rukhsana Gutierrez MD History of Present Illness History of Present Illness Srikanth Crocker is a 87 year old male who presents to the hospital after syncop al episodes and falls. He reports back pain. Movement and palpation makes pain worse. Nothing makes pain better. He reports that he suffers from constipation but denies any hematochezia and/or melena. He does report that he sometimes has blood in his urine. He does not know when his last colonoscopy was. CT of the chest showed numerous bilateral rib fractures at various stages of healing. Review of Systems General: Reports: 10 or more systems reviewed and unremarkable except in HPI and below Medications/Allergies Home Medications Medication Instructions Recorded Confirmed Last Taken Type cholecalciferol (vitamin D3) 50 50 mcg PO QAM 12/22/22 04/21/23 04/21/23 History mcg (2,000 unit) capsule hydroxychloroquine 200 mg tablet 200 mg PO BID #60 tabs 01/08/23 04/21/23 04/21/23 Rx (Plaquenil) docusate sodium 100 mg capsule 100 mg PO DAILY PRN Constipation 02/01/23 04/21/23 Unknown History (Colace) multivitamin 1 tab PO EVERY OTHER DAY 02/01/23 04/21/23 02/01/23 History acetaminophen 650 mg 1,300 mg PO Q8H 03/14/23 04/21/23 04/21/23 History tablet,extended release (Tylenol 8 Hour) duloxetine 30 mg capsule,delayed 30 mg PO QAM 04/21/23 04/21/23 04/21/23 History release (Cymbalta) hydrocodone 5 mg-acetaminophen 325 1 - 2 tab PO .EVERY 4-6 HOURS PRN 04/21/23 04/21/23 Unknown History mg tablet Pain naproxen sodium 220 mg tablet 220 mg PO BID 04/21/23 04/21/23 04/21/23 History (Aleve) Allergies Allergy/AdvReac Type Severity Reaction Status Date / Time hydrocodone [From [place]] Allergy Intermediate ADR-halluci Verified 04/21/23 10:28 nations Current Medications Generic Name Dose Route Start Last Admin Trade Name Freq PRN Reason Stop Dose Admin Capsaicin 1 applic 04/21/23 18:16 04/21/23 21:32 Capsaicin 0.025% Cream 60 Gm TOPICAL 1 applic QID PRN Administration PAIN Hydrocortisone Sodium Succinate 100 mg 04/21/23 19:45 04/22/23 07:57 Hydrocortisone 100 Mg/2 Ml Sdv IVP 100 mg Q6H THEODORE Administration Hydromorphone HCl 0.2 mg 04/21/23 18:21 04/22/23 09:45 Hydromorphone 1 Mg/Ml Inj 1 Ml IVP 0.2 mg Q6H PRN Administration SEVERE PAIN Ceftriaxone Sodium 1,000 mg/ 50 mls @ 100 mls/hr 04/21/23 18:30 04/21/23 20:57 Sodium Chloride IV Infused Q24H THEODORE Infusion Protocol Lactulose 20 gm 04/21/23 18:30 04/22/23 06:10 Lactulose Oral Liq 20 Gm/30 Ml Udc PO 20 gm Q6H THEODORE Administration Lidocaine 1 patch 04/21/23 21:00 04/21/23 21:51 Lidocaine 5% Patch TOPICAL 1 patch [id number] THEODORE Administration Morphine Sulfate 2 mg 04/21/23 17:34 04/22/23 06:19 Morphine 4 Mg/Ml Sdv 1 Ml IVP 2 mg ONCE PRN Administration PAIN Pantoprazole Sodium 40 mg 04/22/23 08:00 04/22/23 07:57 Pantoprazole 40 Mg Sdv IVP 40 mg Q12H THEODORE Administration Polyethylene Glycol 17 gm 04/22/23 09:00 04/22/23 09:47 Polyethylene Glycol 3350 Pkt 17 Gm PO Not Given BID THEODORE Sodium Chloride 50 ml 04/21/23 22:14 04/21/23 23:40 Sodium Chloride 0.9% 100 Ml Bag IV 04/22/23 22:14 50 ml PRN PRN Administration Blood transfusion prime and flush PFSH Acute PFSH: Medical History Constipation due to opioid therapy DDD (degenerative disc disease) Decubitus ulcer of coccyx GERD (gastroesophageal reflux disease) History of pancreatitis History of prostate cancer Osteoarthritis Osteoporosis Systemic lupus erythematosus Surgical History History of bilateral carpal tunnel release History of hand surgery left trigger finger History of lumbar surgery History of open reduction and internal fixation (ORIF) procedure r femur History of open reduction and internal fixation (ORIF) procedure r elbow History of repair of right rotator cuff History of total bilateral knee replacement Status post insertion of spinal cord stimulator Family History Mother Dementia Father Rheumatoid arthritis Social History Smoking and tobacco status: never smoked Alcohol intake: current Alcohol intake frequency: holidays/special occasions only Substance/Drug Use: never Lives independently: Yes Household members: spouse Marital status: Number of children: 2 Current occupational status: retired 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 Ears : Pinnae and external canal are normal. Hearing is normal. Eyes : PERRLA, Sclera and injection are normal. No conjunctival discharge. Nose : Mucous membranes are without erythema. Throat : buccal mucosa is normal, gums are without significant recession or hypertrophy. Lungs : Equal chest rise bilaterally, no use of accessory muscles, trachea is mi dline. Cor : Rate and rhythm are normal. Abdomen : Soft, ND, NT, no g/r/m Extremities : No edema, no cyanosis or clubbing, dorsalis pedis pulses are present bilaterally, non-tender to palpation of calves. Upper extremities are normal bilaterally. Back : non-tender to palpation, no CVA tenderness. Neuro : CN II - XII intact, Upper and lower extremities have equal and full strength Urinary Catheter Management: [place]: Cath Placed During This Visit: yes Reason for Continuing Indwelling Catheter: Accurate Measurement of Urinary Output in Critically Ill Patients Urinary Catheter Date of Insertion: 04/21/23 Urinary Catheter Time of Insertion: 15:44 Data 04/22/23 03:20 04/22/23 03:20 Micro: Microbiology 04/21/23 13:45 Urine Culture - Preliminary Urine,Clean Catch 04/21/23 11:25 Blood Culture - Preliminary Blood SPECIMEN COLLECTED 04/21/23 11:19 Blood Culture - Preliminary Blood SPECIMEN COLLECTED A&P Assessment and plan (1) Syncope: (2) Multiple fractures of ribs: (3) Falls frequently: (4) Transfusion-dependent anemia: Plan Pain control I-S use Bowel prep Tomorrow for EGD and colonoscopy The risks and benefits of the procedure, including bleeding, infection, intestinal perforation requiring surgery, missed lesion were explained to the patient. The patient is understanding of the risks and wishes to proceed. Coding Level of Care Code 23726 Diagnoses Syncope R55 Multiple fractures of ribs S22.49XA Falls frequently R29.6 Transfusion-dependent anemia D64.9
[2023-04-22] MEDS: lidocaine 5% Patch 1 PATCH TOPICAL (11:18)
[2023-04-22] MEDS: acetaminophen 325 mg Tablet 650 MG PO ×2 (13:58→20:00)
--- NOTE | 2023-04-22 14:52 | P.PN_ITS ---
Subjective Subjective: As per his he has been having some issues with constipation. Currently he feels like he needs to have a bowel movement. Some discomfort in right lower quadrant. Overnight noted decrease in hemoglobin, required 1 unit RBC transfusion. Overall his condition has been worse since the last semi-fall, when he was slumping down to the ground, and was having difficulty to get up by himself, had required assistance. He is being visited by the surgeon, instructed and encouraged on use of incen tive spirometer, and he has taken to it very well. He now also has his hearing aids available. Vitals/I&O/Wt Last Vital Signs Temp 97.7 F 04/22/23 04:30 Pulse 87 04/22/23 14:15 Resp 16 04/22/23 14:15 BP 123/64 04/22/23 14:15 Pulse Ox 90 04/22/23 14:15 O2 Del Method Room Air 04/22/23 12:00 O2 Flow Rate 2 04/21/23 16:00 04/21/23 04/22/23 04/22/23 22:59 06:59 14:59 Intake Total 1300 / 1300 1679.35 / 2979.35 Output Total 500 / 500 625 / 1125 125 / 125 Balance 800 / 800 1054.35 / 1854.35 -125 / -125 Weight last 48 hrs Weight 82.282 kg Weight 83.915 kg Physical Exam Narrative: His is at bedside. Const: COMMON NORMALS: patient oriented x3 and alert GENERAL APPEARANCE: cooperative ORIENTATION/CONSCIOUSNESS: Yes awake HENMT: COMMON NORMALS: oropharynx normal Neck/C-Spine: COMMON NORMALS: no JVD Resp: COMMON NORMALS: normal respiratory effort and clear to auscultation bilaterally AUSCULTATION: clear to auscultation bilaterally Cardio: COMMON NORMALS: no JVD, regular rhythm, S1 normal heart sound present, S2 normal heart sound present and No murmurs present (Cardio) RHYTHM: regular rhythm HEART SOUNDS: S1 normal heart sound present and S2 normal heart sound present GI: COMMON NORMALS: Normal to inspection, nondistended, normoactive bowel sounds present, Soft to palpation and non-tender PALPATION: Yes Soft to palpation Extremity: COMMON NORMALS: no joint enlargement and no pedal edema Neuro: COMMON NORMALS: patient oriented x3 and moves all extremities SENSORIUM/ORIENTATION: Yes alert Skin: COMMON NORMALS: no rashes or lesions noted GENERAL SKIN EXAM: no rashes or lesions noted Urinary Catheter Management: [place]: Cath Placed During This Visit: yes Reason for Continuing Indwelling Catheter: Accurate Measurement of Urinary Output in Critically Ill Patients Urinary Catheter Date of Insertion: 04/21/23 Urinary Catheter Time of Insertion: 15:44 Data 04/22/23 03:20 04/22/23 03:20 Micro: Microbiology 04/21/23 13:45 Urine Culture - Preliminary Urine,Clean Catch 04/21/23 11:25 Blood Culture - Preliminary Blood SPECIMEN COLLECTED 04/21/23 11:19 Blood Culture - Preliminary Blood SPECIMEN COLLECTED A&P Assessment and plan (1) Acute anemia: Noted acute worsening of hemoglobin, down to 7.5 on recheck last night initial 10.7. Prior hemoglobin around 12-13 range. At risk of GI bleeding, although no obvious bleeding so far. Requested Hemoccult. Haptoglobin was checked yesterday, not suggestive of hemolysis. His provides history that his last endoscopy was a very long time ago. Did have some on and off hematuria, but currently urine is clear. No intrarenal/retroperitoneal bleeding on contrast CT last night. Certainly concern for GI bleed. Discontinue NSAIDs, started on PPI IV twice daily last night. Surgery visiting with the patient, discussed at bedside with surgery and patient and family further options on proceeding, consensus at the moment with rapid decrease in hemoglobin consideration for additional anoscopic evaluation tomorrow. Discussed with him and family is at somewhat elevated risk due to the multiple rib fractures, risk of respiratory worsening, respiratory failure, although so far has been doing well, without respiratory complaints, on room air. Encouraged and he took very well to inc entive spirometry. We will monitor his breathing through tonight until tomorrow, considering delaying or deferring the procedure in case of any worsening. Occult blood in stool positive. Seems to be a more acute event as he is otherwise not iron deficient on review of iron studies. Ferritin elevated, possibly acute phase reactant. Please arrange follow-up for reassessment. Reassess blood count. (2) Multiple fractures of ribs: Continue incentive spirometry, so far doing well on room air. Monitor respiratory status. Pain control as needed, so far responding well. Cautious mobilization with physical therapy. Possible pathologic/osteoporotic fractures. Will benefit from follow-up for establishing osteoporosis treatment. As per prior discussion, consideration of other pain modalities including lidocaine patch, Tylenol, capsaicin, with him and family. Added Dilaudid in case of severe pain, but hopefully may avoid opioids. At risk of worsening constipation, hypotension, confusion and other complications with opioids. At current time risks to great to continue NSAIDs. At risk of delirium. Now has his hearing aids available. Family are supporting him at bedside. (3) Urinary tract infection: Continue ceftriaxone. Follow-up urine culture. Appears may have UTI, more than 100 RBC, 10-15 WBC. 0-4 SEC. 1+ bacteria. No ureter nephrosis. Hematuria appears may be secondary to right renal pelvic stone. Discussed with [facility], no hydronephrosis while lying down. Start ceftriaxone. Noted to have leukocytosis 15,000. Additionally blood pressure currently soft, although this appears to be after fentanyl. Improving. Monitor in ICU. Follow-up urine culture. (4) Syncope: At some point will need assessment of orthostatics. Possibly related to acute anemia, possible GI bleeding as above. Echocardiogram noted, normal LV systolic function and size, wall thickness, no diagnostic RWMA. EF 70%. Abnormal diastolic function. Random serum cortisol appropriate. We will hold off further hydrocortisone for now. Monitor blood pressure as he may be at risk of adrenal insufficiency. Treat UTI. Complete troponin EKG series. Mild elevation so far, no suggestion of acute AK. Check TTE. (5) Intractable low back pain: Chronic back pain, vertebral compression fracture, status post vertebroplasty, has been on NSAID at home, however, currently risk too high, discussed concerns with family. Will attempt additional local measures, opioid if needed for severe pain, we discussed risks with opioid as well. (6) Traumatic compression fracture of lumbar vertebra: As above. (7) Constipation due to opioid therapy: Add bowel regimen, MiraLAX, lactulose. Currently undergoing prep for consideration of endoscopic/colonoscopic assessment. (8) Abdominal aortic aneurysm: Incidentally noted on CT abdomen pelvis. Follow-up outpatient. (9) Nephrolithiasis: Incidentally noted on CT, 1.6 cm calcified right renal pelvic stone. Possibly responsible for hematuria. Question of contribution to UTI. Consider follow-up with urology. Discussed with [facility], no hydronephrosis while lying down. (10) Decubitus ulcer of coccyx: Reposition frequently. Wound care. Nutrition supplementation. (11) Cholelithiasis: Incidentally noted on CT. Hyperbilirubinemia noted resolved. Some abdominal discomfort but right lower quadrant, no right upper quadrant symptoms. Alk phos with some ovation 178 suspect secondary to multiple fractures. AST, ALT, T. bili normal. No biliary duct dilation. Reassess liver parameters. Monitor for change in symptoms. Plan SLE: Hold hydroxychloroquine for now GERD: PPI DDD OA Discussed with ER physician. ER documentation reviewed. Attestations Medical Necessity Statement*: Continue admission for assessment and management of acute anemia, suspected GI bleeding, multiple rib fractures, syncopal episodes in a gentleman of advanced age with underlying SLE Diagnoses Acute anemia D64.9 Multiple fractures of ribs S22.49XA Urinary tract infection N39.0 Syncope R55 Intractable low back pain M54.59 Traumatic compression fracture of lumbar vertebra S32.000A Constipation due to opioid therapy K59.03; T40.2X5A Abdominal aortic aneurysm I71.40 Nephrolithiasis N20.0 Decubitus ulcer of coccyx L89.159 Cholelithiasis K80.20
[2023-04-22 15:41] LABS: Hemoglobin 8.1 g/dL (11.7-16.6)
[2023-04-22] MEDS: cefTRIAXone 1,000 MG in sodium chloride 0.9% (plus) 50 ML 100 MG IV (17:56)
[2023-04-23] VITALS (49 sets, daily range): BP systolic 106–169; BP diastolic 52–79; PULSE 70–113; RESP 14–25; TEMP 36.2–36.9; O2SAT 89–100; BMI 25.2
[2023-04-23 04:56] LABS: Basophils % 0.1 %; Eosinophils % 0.1 %; Hematocrit 23.8 % (42.0-52.0); Hemoglobin 7.6 g/dL (11.7-16.6); Lymphocytes # 0.7 10^3/uL (0.8-4.8); Lymphocytes % 3.4 %; Mean Corpuscular HGB Conc 31.9 g/dL (30.0-36.0); Mean Corpuscular Volume 94.1 fl (80-94); Mean Platelet Volume 11.6 fL (7.4-10.4); Monocytes # 3.6 10^3/uL (0.2-0.9); Neutrophils # 15.65 10^3/uL (1.8-7.7); Neutrophils % 77.4 %; Nucleated Red Blood Cells % 0.1 %; Platelet Count 141 10^3/cmm (130-400); Red Blood Count 2.53 10^6/uL (4.1-5.3); Red Cell Distribution Width 18.3 % (12.1-15.1); White Blood Count 20.2 10^3/uL (4.0-10.0)
[2023-04-23 05:13] LABS: Alanine Aminotransferase 23 U/L (0-41); Albumin Level 2.9 g/dL (3.5-5.2); Alkaline Phosphatase 163 U/L (40-130); Anion Gap 12.6 (5-19); Aspartate Amino Transferase 18 U/L (0-40); Blood Urea Nitrogen 63 mg/dL (8-23); Carbon Dioxide 31 mmol/L (22-29); Chloride 100 mmol/L (98-107); Globulin 1.8 g/dL (1.3-4.6); Glucose 94 mg/dL (65-115); Osmolality Calculated 308 mOsm/kg (285-295); Potassium 3.6 mmol/L (3.5-5.1); Sodium 140 mmol/L (136-145); Total Bilirubin 0.8 mg/dL (0.15-1.2); Total Protein 4.7 g/dL (6.6-8.7)
[2023-04-23] MEDS: pantoprazole 40 mg SDV IVP ×2 (07:39→19:16)
[2023-04-23] MEDS: HYDROmorphone 1 mg/mL INJ 1 mL 0.2 MG IVP (07:39)
[2023-04-23] MEDS: lidocaine 5% Patch 1 PATCH TOPICAL (09:09)
[2023-04-23] MEDS: polyethylene glycol 3350 Pkt 17 gm PO ×2 (09:10→17:56)
[2023-04-23] MEDS: magnesium citrate Btl 296 mL PO (10:25)
[2023-04-23] MEDS: lactulose oral liq 20 gm/30 mL UDC PO ×2 (13:25→17:56)
--- NOTE | 2023-04-23 13:36 | PC.NURSE ---
Hallucinations Patient states he is seeing ants crawl on the ceiling tiles and is adamant they are there. Patient was given Dilaudid this morning. Will continue to monitor. Patient is AAOx4 to person, place, time, and situation. Moves all extremities with equal strength. at bedside.
--- NOTE | 2023-04-23 14:09 | ANES.PREANE2 ---
Pre-Anesthetic Assessment Height/Weight: Height 1.8 m Weight 82.282 kg Temp Pulse Resp BP Pulse Ox O2 Del Method O2 Flow Rate 97.4 F L 82 15 131/60 96 Room Air 2 04/23/23 07:30 04/23/23 13:00 04/23/23 13:00 04/23/23 13:00 04/23/23 13:00 04/23/23 13:00 04/21/23 16:00 Operation Date: 04/23/23 11:45 Proposed Procedures p EGD(Not Applicable) - Cody Carpenter DO s Colonoscopy(Not Applicable) - Cody Carpenter DO Familial anesthetic complications: none Was Beta Karthikeyan taken within 24 hours: N/A Was Clonidine taken within 24 hours: N/A Social No alcohol and No tobacco Exam alert, oriented x 3, clear to auscultation bilaterally and regular rate & rhythm Airway Submandibular: within normal limits Cervical ROM: within normal limits Mallampati: Class I Dentition: full CV/HEM Anemia and Peripheral Vascular Disease (AAA) CONCLUSIONS ?1. Normal left ventricular size, systolic function and wall ?thickness, with no diagnostic regional wall motion ?abnormalities. Left ventricular ejection fraction is estimated ?at 70 %.? Abnormal diastolic function. ?2. No significant change when compared to study dated ?10/17/2014. ?Kavita Holliday MD ?(Electronically Signed) ?Final Date:? ? ? 22 April 2023 GI Gastroesophageal Reflux Disease Metabolic SLE Musc/skel Lower Back Pain and Osteoarthritis/DJD Neuropsych Mildly confused Anesthetic Plan ASA status: 3 Anesthesia: MAC Medications/Allergies Home Medications Medication Instructions Recorded Confirmed Last Taken Type cholecalciferol (vitamin D3) 50 50 mcg PO QAM 12/22/22 04/21/23 04/21/23 History mcg (2,000 unit) capsule hydroxychloroquine 200 mg tablet 200 mg PO BID #60 tabs 01/08/23 04/21/23 04/21/23 Rx (Plaquenil) docusate sodium 100 mg capsule 100 mg PO DAILY PRN Constipation 02/01/23 04/21/23 Unknown History (Colace) multivitamin 1 tab PO EVERY OTHER DAY 02/01/23 04/21/23 02/01/23 History acetaminophen 650 mg 1,300 mg PO Q8H 03/14/23 04/21/23 04/21/23 History tablet,extended release (Tylenol 8 Hour) duloxetine 30 mg capsule,delayed 30 mg PO QAM 04/21/23 04/21/23 04/21/23 History release (Cymbalta) hydrocodone 5 mg-acetaminophen 325 1 - 2 tab PO .EVERY 4-6 HOURS PRN 04/21/23 04/21/23 Unknown History mg tablet Pain naproxen sodium 220 mg tablet 220 mg PO BID 04/21/23 04/21/23 04/21/23 History (Aleve) Allergies Allergy/AdvReac Type Severity Reaction Status Date / Time hydrocodone [From [place]] Allergy Intermediate ADR-halluci Verified 04/21/23 10:28 nations Current Medications Generic Name Dose Route Start Last Admin Trade Name Freq PRN Reason Stop Dose Admin Acetaminophen 650 mg 04/21/23 18:13 04/22/23 20:00 Acetaminophen 325 Mg Tablet PO 650 mg Q6H PRN Administration Mild/Mod Pain Or Temp >/= 101 Capsaicin 1 applic 04/21/23 18:16 04/21/23 21:32 Capsaicin 0.025% Cream 60 Gm TOPICAL 1 applic QID PRN Administration PAIN Hydromorphone HCl 0.2 mg 04/21/23 18:21 04/23/23 07:39 Hydromorphone 1 Mg/Ml Inj 1 Ml IVP 0.2 mg Q6H PRN Administration SEVERE PAIN Ceftriaxone Sodium 1,000 mg/ 50 mls @ 100 mls/hr 04/21/23 18:30 04/22/23 18:56 Sodium Chloride IV Infused Q24H THEODORE Infusion Protocol Lactulose 20 gm 04/21/23 18:30 04/23/23 13:25 Lactulose Oral Liq 20 Gm/30 Ml Udc PO 20 gm Q6H THEODORE Administration Lidocaine 1 patch 04/21/23 21:00 04/23/23 09:09 Lidocaine 5% Patch TOPICAL 1 patch [id number] THEODORE Administration Morphine Sulfate 2 mg 04/21/23 17:34 04/22/23 06:19 Morphine 4 Mg/Ml Sdv 1 Ml IVP 2 mg ONCE PRN Administration PAIN Pantoprazole Sodium 40 mg 04/22/23 08:00 04/23/23 07:39 Pantoprazole 40 Mg Sdv IVP 40 mg Q12H THEODORE Administration Polyethylene Glycol 17 gm 04/22/23 09:00 04/23/23 09:10 Polyethylene Glycol 3350 Pkt 17 Gm PO 17 gm BID THEODORE Administration PFSH Anesthesia Medical History Constipation due to opioid therapy DDD (degenerative disc disease) Decubitus ulcer of coccyx GERD (gastroesophageal reflux disease) History of pancreatitis History of prostate cancer Osteoarthritis Osteoporosis Systemic lupus erythematosus Surgical History History of bilateral carpal tunnel release History of hand surgery left trigger finger History of lumbar surgery History of open reduction and internal fixation (ORIF) procedure r femur History of open reduction and internal fixation (ORIF) procedure r elbow History of repair of right rotator cuff History of total bilateral knee replacement Status post insertion of spinal cord stimulator Family History Mother Dementia Father Rheumatoid arthritis Social History Smoking and tobacco status: never smoked Alcohol intake: current Alcohol intake frequency: holidays/special occasions only Substance/Drug Use: never Lives independently: Yes Household members: spouse Marital status: Number of children: 2 Current occupational status: retired 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 [employer] Data Anesthesia 04/23/23 03:47 04/23/23 03:47 Short CBC 04/21/23 04/22/23 04/22/23 Range/Units 20:10 03:20 15:33 WBC 16.9 H (4.0-10.0) 10^3/uL Hgb 7.5 L 8.7 L 8.1 L (11.7-16.6) g/dL Hct 26.7 L (42.0-52.0) % MCV 94.3 H (80-94) fl Plt Count 150 D (130-400) 10^3/cmm Neut % (Auto) 87.2 % Neut # (Auto) 14.76 H (1.8-7.7) 10^3/uL 04/23/23 Range/Units 03:47 WBC 20.2 H (4.0-10.0) 10^3/uL Hgb 7.6 L (11.7-16.6) g/dL Hct 23.8 L (42.0-52.0) % MCV 94.1 H (80-94) fl Plt Count 141 (130-400) 10^3/cmm Neut % (Auto) 77.4 % Neut # (Auto) 15.65 H (1.8-7.7) 10^3/uL BMP 04/22/23 04/23/23 03:20 03:47 Sodium 134 L 140 Potassium 4.0 3.6 Chloride 101 100 Carbon Dioxide 23 31 H BUN 77 H 63 H Creatinine 1.3 H 1.0 Glucose 131 H 94 Calcium 8.2 L 8.0 L Cardiac Enzymes 04/21/23 Range/Units 16:13 Troponin T Hi Sens 6Hr 39.58 H (0-15) ng/L Troponin T Hi Sens 6Hr Delta 5.58 (0-12) ng/L Liver Function 04/22/23 04/23/23 Range/Units 03:20 03:47 Total Bilirubin 1.0 0.8 (0.15-1.2) mg/dL AST 10 18 (0-40) U/L ALT 11 23 (0-41) U/L Alkaline Phosphatase 178 H 163 H (40-130) U/L Albumin 3.0 L 2.9 L (3.5-5.2) g/dL Urine 04/21/23 Range/Units 13:45 Urine Color Yellow (Yellow) Urine Appearance Sl hazy A (CLEAR) Urine pH 5 (5-7) Ur Specific [place] 1.015 (1.005-1.030) Urine Protein 1+ H (Negative) Urine Glucose (UA) Norm (Normal) Urine Ketones 1+ H (Negative) Urine Nitrate Negative (Negative) Urine Bilirubin 1+ H (Negative) Ur Leukocyte Esterase 1+ H (Negative) Urine RBC >100 H (0-2) /hpf Urine WBC 10-15 H (0-5) /hpf Blood Bank 04/21/23 22:25 Blood Type O Positive Rho(D) Type Positive Antibody Screen Negative Microbiology 04/21/23 13:45 Urine Culture - Final Urine,Clean Catch 04/21/23 11:25 Blood Culture - Preliminary Blood NEGATIVE TO DATE 04/21/23 11:19 Blood Culture - Preliminary Blood NEGATIVE TO DATE 04/22/23 15:10 Occult Blood (FIT) - Final Stool Routine Collection Cardiac Studies: Echocardiogram 04/22/23
--- NOTE | 2023-04-23 15:21 | PM.PN ---
Subjective Subjective: Plan EGD and colonoscopy today. Currently undergoing prep for the same. No acute interim complaints. Medications: Reviewed: Yes Vitals/I&O/Wt Last Vital Signs Temp 97.4 F L 04/23/23 07:30 Pulse 87 04/23/23 14:30 Resp 15 04/23/23 14:30 BP 151/58 04/23/23 14:30 Pulse Ox 91 04/23/23 14:30 O2 Del Method Room Air 04/23/23 14:30 O2 Flow Rate 2 04/21/23 16:00 04/23/23 04/23/23 04/23/23 06:59 14:59 22:59 Intake Total 0 / 0 Output Total 1650 / 3175 200 / 200 800 / 1000 Balance -1650 / -3125 -200 / -200 -800 / -1000 Weight last 48 hrs Weight 82.282 kg Weight 82.282 kg Physical Exam Narrative: General: No acute distress, AO x3 HEENT: PERRLA, pupils bilaterally equal and reactive, pallors not present Chest: Normal vesicular breath sounds, no added sounds, equal good air entry bilaterally CVS: S1-S2 regular, no murmurs, no tachycardia, no gallops, no rubs Abdomen: Soft, nontender, no organomegaly, bowel sounds present Neuro: No focal deficits, no facial deformity, AO x3, power 5/5 in all limbs Urinary Catheter Management: [place]: Cath Placed During This Visit: yes Reason for Continuing Indwelling Catheter: Accurate Measurement of Urinary Output in Critically Ill Patients Urinary Catheter Date of Insertion: 04/21/23 Urinary Catheter Time of Insertion: 15:44 Data 04/23/23 03:47 04/23/23 03:47 Micro: Microbiology 04/21/23 13:45 Urine Culture - Final Urine,Clean Catch 04/21/23 11:25 Blood Culture - Preliminary Blood NEGATIVE TO DATE 04/21/23 11:19 Blood Culture - Preliminary Blood NEGATIVE TO DATE 04/22/23 15:10 Occult Blood (FIT) - Final Stool Routine Collection A&P Assessment and plan (1) Acute anemia: Noted acute worsening of hemoglobin, down to 7.5 on recheck last night initial 10.7. Stable today Suspected GI bleed given positive FOBT For EGD and colonoscopy today Haptoglobin was checked yesterday, not suggestive of hemolysis. No intrarenal/retroperitoneal bleeding on contrast CT last night. Discontinue NSAIDs, started on PPI IV twice daily Reassess blood count. (2) Multiple fractures of ribs: Continue incentive spirometry, so far doing well on room air. Monitor respiratory status. Pain control as needed, so far responding well. Cautious mobilization with physical therapy. Possible pathologic/osteoporotic fractures. Will benefit from follow-up for establishing osteoporosis treatment. Recent bone scan suggestive of osteoporosis treatment. We will start Fosamax as outpatient. Patient was previously on bisphosphonates, however discontinued when he started to feel better. Denies any complications with bisphosphonates.. (3) Urinary tract infection: Continue ceftriaxone. Follow-up urine culture. (4) Syncope: Complete troponin EKG series. Mild elevation so far, no suggestion of acute [place]. Suspected recurrent falls are related to neurogenic claudication from known lumbar stenosis. He had kyphoplasty recently in February which did not appear to have improved his symptoms (5) Intractable low back pain: Chronic back pain, vertebral compression fracture, status post vertebroplasty, follows with pain management as outpatient with Dr. Velázquez. (6) Traumatic compression fracture of lumbar vertebra: As above. (7) Constipation due to opioid therapy: Add bowel regimen, MiraLAX, lactulose. Currently undergoing prep for consideration of endoscopic/colonoscopic assessment. (8) Abdominal aortic aneurysm: Incidentally noted on CT abdomen pelvis. Follow-up outpatient. (9) Nephrolithiasis: Incidentally noted on CT, 1.6 cm calcified right renal pelvic stone. Possibly responsible for hematuria. Question of contribution to UTI. Consider follow-up with urology. Discussed with [facility], no hydronephrosis while lying down. (10) Decubitus ulcer of coccyx: Reposition frequently. Wound care. Nutrition supplementation. (11) Cholelithiasis: Incidentally noted on CT. Hyperbilirubinemia noted resolved. Some abdominal discomfort but right lower quadrant, no right upper quadrant symptoms. Alk phos with some ovation 178 suspect secondary to multiple fractures. AST, ALT, T. bili normal. No biliary duct dilation. Follow-up as outpatient Plan SLE: Hold hydroxychloroquine for now GERD: PPI DDD OA Discussed with ER physician. ER documentation reviewed. Attestations Medical Necessity Statement*: Planned endoscopic evaluation today. Transfer out of ICU to [facility]. Change to inpatient admission, care expected to cross tonight as he has scheduled endoscopy for hemoglobin drop and suspected GI bleed Coding Level of Care Code Acute Code for Chg Fwd Diagnoses Acute anemia D64.9 Multiple fractures of ribs S22.49XA Urinary tract infection N39.0 Syncope R55 Intractable low back pain M54.59 Traumatic compression fracture of lumbar vertebra S32.000A Constipation due to opioid therapy K59.03; T40.2X5A Abdominal aortic aneurysm I71.40 Nephrolithiasis N20.0 Decubitus ulcer of coccyx L89.159 Cholelithiasis K80.20
--- NOTE | 2023-04-23 16:02 | PM.PN ---
Vitals/I&O/Wt Last Vital Signs Temp 97.4 F L 04/23/23 07:30 Pulse 87 04/23/23 14:30 Resp 15 04/23/23 14:30 BP 151/58 04/23/23 14:30 Pulse Ox 91 04/23/23 14:30 O2 Del Method Room Air 04/23/23 14:30 O2 Flow Rate 2 04/21/23 16:00 04/23/23 04/23/23 04/23/23 06:59 14:59 22:59 Intake Total 0 / 0 Output Total 1650 / 3175 200 / 200 800 / 1000 Balance -1650 / -3125 -200 / -200 -800 / -1000 Weight last 48 hrs Weight 181 lb 6.4 oz Weight 181 lb 6.4 oz Physical Exam Urinary Catheter Management: Cray: Cath Placed During This Visit: yes Reason for Continuing Indwelling Catheter: Accurate Measurement of Urinary Output in Critically Ill Patients Urinary Catheter Date of Insertion: 04/21/23 Urinary Catheter Time of Insertion: 15:44 Data 04/23/23 03:47 04/23/23 03:47 Micro: Microbiology 04/21/23 13:45 Urine Culture - Final Urine,Clean Catch 04/21/23 11:25 Blood Culture - Preliminary Blood NEGATIVE TO DATE 04/21/23 11:19 Blood Culture - Preliminary Blood NEGATIVE TO DATE 04/22/23 15:10 Occult Blood (FIT) - Final Stool Routine Collection A&P Assessment and plan (1) Syncope: (2) Multiple fractures of ribs: (3) Falls frequently: (4) Transfusion-dependent anemia: Plan EGD and colonoscopy The risks and benefits of the procedure, including bleeding, infection, intestinal perforation requiring surgery, missed lesion were explained to the patient. The patient is understanding of the risks and wishes to proceed. Attestations Medical Necessity Statement*: PER PRIMARY Coding Level of Care Code Acute Code for Chg Fwd Diagnoses Syncope R55 Multiple fractures of ribs S22.49XA Falls frequently R29.6 Transfusion-dependent anemia D64.9
[2023-04-23] MEDS: sodium chloride 0.9% 1,000 ML 30 ML IV (16:03)
--- NOTE | 2023-04-23 16:44 | PC.NURSE ---
Report given to MILLY Santana.
--- NOTE | 2023-04-23 16:48 | ANE.PACU2 ---
Inpatient post-anesthesia follow up: Airway intact: Yes Vital signs: Temperature 97.8 F Pulse Rate 89 Respiratory Rate 18 Blood Pressure 146/65 Pulse Oximetry 96 Oxygen Delivery Me thod [ Room Air Current Rate & Del veronica] Oxygen Delivery Me thod Room Air Oxygen Flow Rate 2 Fraction of Inspir ed Oxygen Hydration adequate: Yes Nausea and vomiting: No Pain level: 2 Mental status: Baseline
[2023-04-23] MEDS: cefTRIAXone 1,000 MG in sodium chloride 0.9% (plus) 50 ML 100 MG IV (17:55)
[2023-04-23] MEDS: sucralfate 1 gm Tablet PO (17:56)
[2023-04-24] VITALS (50 sets, daily range): BP systolic 108–193; BP diastolic 57–113; PULSE 0–105; RESP 15–30; TEMP 36.7–37.4; O2SAT 89–95; BMI 25.2
--- NOTE | 2023-04-24 04:41 | PC.NURSE ---
Hallucinations Patient stating that he is seeing ants crawl all over the room curtains and that there are so many ants that they are covering a little boy. Additionally, he states that he is very concerned with a concrete pillar that is moving on wheels and is about to run into his barn. Patient yelling out I need help in here. This pillar is going to crush me as well as attempting to get out of bed. Reorientation and redirection provided with limited success. Dr. Colvin on unit; order received for a 1:1 sitter.
[2023-04-24 05:01] LABS: Basophils % 0.1 %; Lymphocytes # 0.3 10^3/uL (0.8-4.8); Lymphocytes % 2.5 %; Mean Corpuscular HGB Conc 31.4 g/dL (30.0-36.0); Mean Corpuscular Hemoglobin 29.7 pg (28.0-34.0); Mean Corpuscular Volume 94.5 fl (80-94); Mean Platelet Volume 12.4 fL (7.4-10.4); Monocytes # 2.3 10^3/uL (0.2-0.9); Monocytes % 18.6 %; Neutrophils # 9.62 10^3/uL (1.8-7.7); Neutrophils % 77.5 %; Nucleated Red Blood Cells % 0.2 %; Platelet Count 127 10^3/cmm (130-400); Red Blood Count 2.19 10^6/uL (4.1-5.3); White Blood Count 12.4 10^3/uL (4.0-10.0)
[2023-04-24 05:23] LABS: Alanine Aminotransferase 39 U/L (0-41); Albumin Level 2.9 g/dL (3.5-5.2); Alkaline Phosphatase 156 U/L (40-130); Anion Gap 8.7 (5-19); Aspartate Amino Transferase 31 U/L (0-40); Blood Urea Nitrogen 34 mg/dL (8-23); Calcium 8.2 mg/dL (8.5-10.5); Carbon Dioxide 33 mmol/L (22-29); Chloride 101 mmol/L (98-107); Globulin 1.9 g/dL (1.3-4.6); Glucose 99 mg/dL (65-115); Osmolality Calculated 298 mOsm/kg (285-295); Sodium 140 mmol/L (136-145); Total Bilirubin 0.7 mg/dL (0.15-1.2); Total Protein 4.8 g/dL (6.6-8.7)
[2023-04-24 05:35] LABS: Potassium 2.7 mmol/L (3.5-5.1)
[2023-04-24 05:39] LABS: Hematocrit 20.7 % (42.0-52.0); Hemoglobin 6.5 g/dL (11.7-16.6)
[2023-04-24] MEDS: sucralfate 1 gm Tablet PO ×2 (06:06→16:53)
[2023-04-24 06:09] LABS: Magnesium 2.3 mg/dL (1.7-2.3); Phosphorus 2.2 mg/dL (2.5-4.5)
--- NOTE | 2023-04-24 06:18 | PC.NURSE ---
Critical Labs Dr. Colvin notified of the following critical labs: hgb 6.5, hct 20.7, and potassium 2.7. Orders received to transfuse 2 units of PRBC, administer 20 mg lasix after the first finished unit, and to check a mag and phos level.
[2023-04-24] MEDS: pantoprazole 40 mg SDV IVP ×2 (08:03→20:13)
[2023-04-24] MEDS: lidocaine 5% Patch 1 PATCH TOPICAL (08:03)
[2023-04-24] MEDS: potassium phosphate (mEq K) 40 MEQ in sodium chloride 0.9% (100 ml) 100 ML 27.25 MEQ IV (08:03)
[2023-04-24] MEDS: sodium chloride 0.9% 100 mL Bag 50 ML IV ×2 (08:05→11:18)
[2023-04-24] MEDS: lidocaine 1% 5 ML in potassium chloride premix 100 ML 26.25 ML IV (11:17)
[2023-04-24] MEDS: FUROsemide 10 mg/mL SDV 2mL 20 MG IVP (11:17)
[2023-04-24 16:15] LABS: Hematocrit 28.5 % (37-53)
[2023-04-24 16:34] LABS: Alanine Aminotransferase 38 U/L (0-41); Albumin Level 3.5 g/dL (3.5-5.2); Alkaline Phosphatase 174 U/L (40-130); Anion Gap 12.6 (5-19); Aspartate Amino Transferase 28 U/L (0-40); Blood Urea Nitrogen 27 mg/dL (8-23); Calcium 8.2 mg/dL (8.5-10.5); Carbon Dioxide 32 mmol/L (22-29); Chloride 102 mmol/L (98-107); Globulin 1.3 g/dL (1.3-4.6); Glucose 102 mg/dL (65-115); Osmolality Calculated 301 mOsm/kg (285-295); Potassium 3.6 mmol/L (3.5-5.1); Sodium 143 mmol/L (136-145); Total Bilirubin 3.6 mg/dL (0.15-1.2); Total Protein 4.8 g/dL (6.6-8.7)
--- NOTE | 2023-04-24 16:51 | P.PN_ITS ---
Subjective Subjective: Hemoglobin this morning was at 6.5 following which patient received 2 units of blood transfusion. Additionally noted to have hypokalemia with K of 2.7 for which she is receiving IV supplementation. Overnight patient developed confusion and hallucinations. Per patient's patient does tend to have occasional episodes of disorientation at home but has previously only been noted in the setting of having been on opiates. At the time of my assessment this morning he is alert awake oriented, knows that he is at [facility] in [place] but asks questions repeatedly regarding results of endoscopy, going home etc. and has a short attention span. EGD performed yesterday showed evidence of duodenal ulcer and gastritis which should be an explanation for his positive occult blood testing. Colonoscopy was unable to be completed due to poor prep. Medications: Reviewed: Yes Vitals/I&O/Wt Last Vital Signs Temp 98.0 F 04/24/23 13:23 Pulse 82 04/24/23 16:00 Resp 19 H 04/24/23 16:00 BP 125/85 04/24/23 13:23 Pulse Ox 89 L 04/24/23 15:30 O2 Del Method Room Air 04/24/23 12:00 O2 Flow Rate 2 04/21/23 16:00 04/24/23 04/24/23 04/24/23 06:59 14:59 22:59 Intake Total 1169.0909 / 1169.0909 105 / 1274.0909 Output Total 950 / 2250 1900 / 1900 Balance -950 / -1740 1169.0909 / 1169.0909 -1795 / -625.9091 Weight last 48 hrs Weight 82.282 kg Weight 82.282 kg Physical Exam Narrative: General: No acute distress, AO x3 HEENT: PERRLA, pupils bilaterally equal and reactive, pallors not present Chest: Normal vesicular breath sounds, no added sounds, equal good air entry bilaterally CVS: S1-S2 regular, no murmurs, no tachycardia, no gallops, no rubs Abdomen: Soft, nontender, no organomegaly, bowel sounds present Neuro: No focal deficits, no facial deformity, AO x3, power 5/5 in all limbs Urinary Catheter Management: [place]: Cath Placed During This Visit: yes Reason for Continuing Indwelling Catheter: Accurate Measurement of Urinary Output in Critically Ill Patients Urinary Catheter Date of Insertion: 04/21/23 Urinary Catheter Time of Insertion: 15:44 Data 04/24/23 15:45 04/24/23 15:45 A&P Assessment and plan (1) Acute anemia: Acute anemia with hemoglobin drop to 6.5 this morning Status post receiving 2 packed red blood cell transfusion Repeat hemoglobin at 9.2. Suspected GI bleed given positive FOBT EGD showed gastritis and duodenal ulcer, biopsy was taken and currently pending. Incidentally noted Schatzki's ring in the lower third of esophagus. (2) Multiple fractures of ribs: Continue incentive spirometry, so far doing well on room air. Monitor respiratory status. Pain control as needed, so far responding well. Cautious mobilization with physical therapy. Possible pathologic/osteoporotic fractures. Will benefit from follow-up for es tablishing osteoporosis treatment. Recent bone scan suggestive of osteoporosis treatment. We will start Fosamax as outpatient. Patient was previously on bisphosphonates, however discontinued when he started to feel better. Denies any complications with bisphosphonates.. (3) Urinary tract infection: Continue ceftriaxone. Follow-up urine culture. (4) Syncope: Complete troponin EKG series. Mild elevation so far, no suggestion of acute [place]. Suspected recurrent falls are related to neurogenic claudication from known lumbar stenosis. He had kyphoplasty recently in February which did not appear to have improved his symptoms (5) Intractable low back pain: Chronic back pain, vertebral compression fracture, status post vertebroplasty, follows with pain management as outpatient with Dr. Velázquez. (6) Traumatic compression fracture of lumbar vertebra: As above. (7) Constipation due to opioid therapy: Add bowel regimen, MiraLAX, lactulose. Currently undergoing prep for consideration of endoscopic/colonoscopic assessment. (8) Abdominal aortic aneurysm: Incidentally noted on CT abdomen pelvis. Follow-up outpatient. (9) Nephrolithiasis: Incidentally noted on CT, 1.6 cm calcified right renal pelvic stone. Possibly r esponsible for hematuria. Question of contribution to UTI. Consider follow-up with urology. Discussed with [facility], no hydronephrosis while lying down. (10) Decubitus ulcer of coccyx: Reposition frequently. Wound care. Nutrition supplementation. (11) Cholelithiasis: Incidentally noted on CT. Hyperbilirubinemia noted resolved. Some abdominal discomfort but right lower quadrant, no right upper quadrant symptoms. Alk phos with some ovation 178 suspect secondary to multiple fractures. AST, ALT, T. bili normal. No biliary duct dilation. Follow-up as outpatient (12) Duodenal ulcer: steroids started on treatment with Protonix 40 mg twice daily and Carafate 1 g twice daily. (13) Delirium: Delirium likely to be hospital delirium. Sitter at bedside, commend frequent reorientation Avoid opiates Likely may have been precipitated by anesthetics additionally. Plan SLE: Hold hydroxychloroquine for now GERD: PPI DDD OA Awaiting transfer [facility] today, Currently no beds availabl on [facility] e All updates discussed with at bedside Attestations Medical Necessity Statement*: Continued admission for blood transfusion today, correction of electrolyte abnormalities Coding Level of Care Code Acute Code for Chg Fwd High MDM includes number and complexity of problems actively addressed during encounter, amount and/or complexity of data reviewed/ordered and described risk of complication, morbidity or mortality of management as documented Diagnoses Acute anemia D64.9 Multiple fractures of ribs S22.49XA Urinary tract infection N39.0 Syncope R55 Intractable low back pain M54.59 Traumatic compression fracture of lumbar vertebra S32.000A Constipation due to opioid therapy K59.03; T40.2X5A Abdominal aortic aneurysm I71.40 Nephrolithiasis N20.0 Decubitus ulcer of coccyx L89.159 Cholelithiasis K80.20 Duodenal ulcer K26.9 Delirium R41.0
[2023-04-24] MEDS: TRAMadol 50 mg Tablet PO (17:40)
[2023-04-24] MEDS: cefTRIAXone 1,000 MG in sodium chloride 0.9% (plus) 50 ML 100 MG IV (17:40)
--- NOTE | 2023-04-24 19:33 | PC.NURSE ---
SHift SUmmary: This nurse asusmed care at approximately 1600. Patient was alert to self only, but pleasantly confused. Nurse assisted patient up to a chair for dinner, 2 person assist minimum as patient is very weak. Patient briefly became hypertensive while ein pain, treating pain with tramadol brought blood pressure down.
--- NOTE | 2023-04-24 19:41 | PC.NURSE ---
Report given to Tiny on [facility] @0222.
[2023-04-25] VITALS (9 sets, daily range): BP systolic 148–199; BP diastolic 70–97; PULSE 74–81; RESP 16–20; TEMP 36.4–36.7; O2SAT 94–95
[2023-04-25 06:10] LABS: Basophils % 0.2 %; Hematocrit 25.9 % (37-53); Lymphocytes # 0.4 10^3/uL (0.8-4.8); Lymphocytes % 3.6 %; Mean Corpuscular HGB Conc 32.4 g/dL (30-55); Mean Corpuscular Hemoglobin 31.6 pg (27-33); Mean Corpuscular Volume 97.4 fl (82-101); Neutrophils # 8.55 10^3/uL (1.8-7.7); Neutrophils % 75.5 %; Nucleated Red Blood Cells # 0.1 /100WBC; Nucleated Red Blood Cells % 0.4 %; Platelet Count 140 10^3/cmm (157-399); Red Blood Count 2.66 10^6/uL (3.85-5.65); Red Cell Distribution Width 17.2 % (12.1-15.1); White Blood Count 11.33 10^3/uL (3.29-11.43)
[2023-04-25] MEDS: sucralfate 1 gm Tablet PO ×2 (06:14→17:55)
[2023-04-25] MEDS: duloxetine 30 mg Capsule PO (06:14)
[2023-04-25 06:34] LABS: Alanine Aminotransferase 27 U/L (0-41); Albumin Level 2.9 g/dL (3.5-5.2); Alkaline Phosphatase 146 U/L (40-130); Anion Gap 9.5 (5-19); Aspartate Amino Transferase 19 U/L (0-40); Blood Urea Nitrogen 20 mg/dL (8-23); Carbon Dioxide 32 mmol/L (22-29); Chloride 104 mmol/L (98-107); Globulin 1.4 g/dL (1.3-4.6); Glucose 118 mg/dL (65-115); Osmolality Calculated 298 mOsm/kg (285-295); Potassium 3.5 mmol/L (3.5-5.1); Sodium 142 mmol/L (136-145); Total Bilirubin 1.2 mg/dL (0.15-1.2); Total Protein 4.3 g/dL (6.6-8.7)
[2023-04-25] MEDS: pantoprazole 40 mg SDV IVP ×2 (08:59→20:07)
[2023-04-25] MEDS: lidocaine 5% Patch 1 PATCH TOPICAL ×2 (08:59→20:09)
[2023-04-25] MEDS: TRAMadol 50 mg Tablet PO ×2 (09:01→17:55)
--- NOTE | 2023-04-25 17:00 | PM.PN ---
Subjective Subjective: Hemoglobin stable today at 8.7. Patient is doing overall well. Awaiting participation with PT OT. Yesterday did not participate as he was sleeping most of the times. Medications: Reviewed: Yes Vitals/I&O/Wt Last Vital Signs Temp 97.7 F 04/26/23 00:00 Pulse 68 04/26/23 00:00 Resp 17 04/26/23 00:00 BP 183/85 04/26/23 00:00 Pulse Ox 93 04/26/23 00:00 O2 Del Method Room Air 04/26/23 00:00 O2 Flow Rate 2 04/21/23 16:00 04/25/23 04/25/23 04/26/23 14:59 22:59 06:59 Intake Total 720 / 720 290 / 1010 Output Total 200 / 200 950 / 1150 Balance 520 / 520 -660 / -140 Weight last 48 hrs Weight 80.24 kg Weight 82.282 kg Physical Exam Narrative: General: No acute distress, AO x3 HEENT: PERRLA, pupils bilaterally equal and reactive, pallors not present Chest: Normal vesicular breath sounds, no added sounds, equal good air entry bilaterally CVS: S1-S2 regular, no murmurs, no tachycardia, no gallops, no rubs Abdomen: Soft, nontender, no organomegaly, bowel sounds present Neuro: No focal deficits, no facial deformity, AO x3, power 5/5 in all limbs Urinary Catheter Management: Cary: Cath Placed During This Visit: yes Reason for Continuing Indwelling Catheter: Other Urinary Catheter Date of Insertion: 04/21/23 Urinary Catheter Time of Insertion: 15:44 Data 04/26/23 01:35 04/25/23 05:42 A&P Assessment and plan (1) Acute anemia: Currently stable at 8.7 (2) Multiple fractures of ribs: Continue incentive spirometry, so far doing well on room air. Monitor respiratory status. Pain control as needed, so far responding well. Cautious mobilization with physical therapy. Possible pathologic/osteoporotic fractures. Will benefit from follow-up for establishing osteoporosis treatment. Recent bone scan suggestive of osteoporosis treatment. We will start Fosamax as outpatient. Patient was previously on bisphosphonates, however discontinued when he started to feel better. Denies any complications with bisphosphonates. (3) Urinary tract infection: Continue ceftriaxone. Follow-up urine culture. (4) Syncope: Complete troponin EKG series. Mild elevation so far, no suggestion of acute [place]. Suspected recurrent falls are related to neurogenic claudication from known lumbar stenosis. He had kyphoplasty recently in February which did not appear to have improved his symptoms (5) Intractable low back pain: Chronic back pain, vertebral compression fracture, status post vertebroplasty, follows with pain management as outpatient with Dr. Velázquez. (6) Traumatic compression fracture of lumbar vertebra: As above. (7) Constipation due to opioid therapy: Add bowel regimen, MiraLAX, lactulose. Currently undergoing prep for consideration of endoscopic/colonoscopic assessment. (8) Abdominal aortic aneurysm: Incidentally noted on CT abdomen pelvis. Follow-up outpatient. (9) Nephrolithiasis: Incidentally noted on CT, 1.6 cm calcified right renal pelvic stone. Possibly responsible for hematuria. Question of contribution to UTI. Consider follow-up with urology. Discussed with [facility], no hydronephrosis while lying down. (10) Decubitus ulcer of coccyx: Reposition frequently. Wound care. Nutrition supplementation. (11) Cholelithiasis: Incidentally noted on CT. Hyperbilirubinemia noted resolved. Some abdominal discomfort but right lower quadrant, no right upper quadrant symptoms. Alk phos with some ovation 178 suspect secondary to multiple fractures. AST, ALT, T. bili normal. No biliary duct dilation. Follow-up as outpatient (12) Duodenal ulcer: steroids started on treatment with Protonix 40 mg twice daily and Carafate 1 g twice daily. (13) Delirium: Delirium likely to be hospital delirium. Sitter at bedside, commend frequent reorientation Avoid opiates Likely may have been precipitated by anesthetics additionally. Plan SLE: Hold hydroxychloroquine for now GERD: PPI DDD OA D/c ceftriaxone, urine cx now reported negative Attestations Medical Necessity Statement*: Awaiting appropriate disposition planning Coding Level of Care Code Acute Code for Chg Fwd Diagnoses Acute anemia D64.9 Multiple fractures of ribs S22.49XA Urinary tract infection N39.0 Syncope R55 Intractable low back pain M54.59 Traumatic compression fracture of lumbar vertebra S32.000A Constipation due to opioid therapy K59.03; T40.2X5A Abdominal aortic aneurysm I71.40 Nephrolithiasis N20.0 Decubitus ulcer of coccyx L89.159 Cholelithiasis K80.20 Duodenal ulcer K26.9 Delirium R41.0
[2023-04-25] MEDS: cefTRIAXone 1,000 MG in sodium chloride 0.9% (plus) 50 ML 100 MG IV (17:55)
[2023-04-26] VITALS (9 sets, daily range): BP systolic 136–183; BP diastolic 71–101; PULSE 60–89; RESP 14–17; TEMP 36.5–36.8; O2SAT 92–97
[2023-04-26 01:41] LABS: Hematocrit 27.2 % (37-53)
[2023-04-26] MEDS: sucralfate 1 gm Tablet PO ×2 (06:02→18:05)
[2023-04-26] MEDS: duloxetine 30 mg Capsule PO (06:02)
[2023-04-26] MEDS: pantoprazole 40 mg SDV IVP (08:28)
[2023-04-26] MEDS: lidocaine 5% Patch 1 PATCH TOPICAL ×2 (08:32→21:39)
--- NOTE | 2023-04-26 11:39 | PC.SOCIAL ---
Imm update Imm updated with patient and at bedside. Copy of page 2 provided. they verbalized understanding. Copy in chart initialed, dated and timed.
--- NOTE | 2023-04-26 17:35 | PM.PN ---
Subjective Subjective: Hemoglobin improving today. He is no longer hallucinating since taking of the opiates. Feels well overall. Has not participated with PT yet as he has been sleeping most of the day. Appropriate disposition planning is ongoing. Medications: Reviewed: Yes Vitals/I&O/Wt Last Vital Signs Temp 97.7 F 04/26/23 12:00 Pulse 85 04/26/23 12:00 Resp 17 04/26/23 12:00 BP 159/82 04/26/23 12:00 Pulse Ox 92 04/26/23 12:00 O2 Del Method Room Air 04/26/23 08:00 O2 Flow Rate 2 04/21/23 16:00 04/26/23 04/26/23 04/26/23 06:59 14:59 22:59 Intake Total 660 / 660 Output Total 750 / 1900 Balance -750 / -890 660 / 660 Weight last 48 hrs Weight 78.471 kg Weight 80.24 kg Physical Exam Narrative: General: No acute distress, AO x3 HEENT: PERRLA, pupils bilaterally equal and reactive, pallors not present Chest: Normal vesicular breath sounds, no added sounds, equal good air entry bilaterally CVS: S1-S2 regular, no murmurs, no tachycardia, no gallops, no rubs Abdomen: Soft, nontender, no organomegaly, bowel sounds present Neuro: No focal deficits, no facial deformity, AO x3, power 5/5 in all limbs Urinary Catheter Management: Cary: Cath Placed During This Visit: yes Reason for Continuing Indwelling Catheter: Other Urinary Catheter Date of Insertion: 04/21/23 Urinary Catheter Time of Insertion: 15:44 Data 04/26/23 01:35 04/25/23 05:42 A&P Assessment and plan (1) Acute anemia: Currently stable at 8.7 (2) Multiple fractures of ribs: Continue incentive spirometry, so far doing well on room air. Monitor respiratory status. Pain control as needed, so far responding well. Cautious mobilization with physical therapy. Possible pathologic/osteoporotic fractures. Will benefit from follow-up for establishing osteoporosis treatment. Recent bone scan suggestive of osteoporosis treatment. We will start Fosamax as outpatient. Patient was previously on bisphosphonates, however discontinued when he started to feel better. Denies any complications with bisphosphonates. (3) Urinary tract infection: Continue ceftriaxone. Follow-up urine culture. (4) Syncope: Complete troponin EKG series. Mild elevation so far, no suggestion of acute [place]. Suspected recurrent falls are related to neurogenic claudication from known lumbar stenosis. He had kyphoplasty recently in February which did not appear to have improved his symptoms (5) Intractable low back pain: Chronic back pain, vertebral compression fracture, status post vertebroplasty, follows with pain management as outpatient with Dr. Velázquez. (6) Traumatic compression fracture of lumbar vertebra: As above. (7) Constipation due to opioid therapy: Add bowel regimen, MiraLAX, lactulose. Currently undergoing prep for consideration of endoscopic/colonoscopic assessment. (8) Abdominal aortic aneurysm: Incidentally noted on CT abdomen pelvis. Follow-up outpatient. (9) Nephrolithiasis: Incidentally noted on CT, 1.6 cm calcified right renal pelvic stone. Possibly responsible for hematuria. Question of contribution to UTI. Consider follow-up with urology. Discussed with [facility], no hydronephrosis while lying down. (10) Decubitus ulcer of coccyx: Reposition frequently. Wound care. Nutrition supplementation. (11) Cholelithiasis: Incidentally noted on CT. Hyperbilirubinemia noted resolved. Some abdominal discomfort but right lower quadrant, no right upper quadrant symptoms. Alk phos with some ovation 178 suspect secondary to multiple fractures. AST, ALT, T. bili normal. No biliary duct dilation. Follow-up as outpatient (12) Duodenal ulcer: steroids started on treatment with Protonix 40 mg twice daily and Carafate 1 g twice daily. (13) Delirium: Delirium likely to be hospital delirium. Sitter at bedside, commend frequent reorientation Avoid opiates Likely may have been precipitated by anesthetics additionally. Plan SLE: Hold hydroxychloroquine for now GERD: PPI DDD OA Hb stable, no longer hallucinating, awaiting dispotion planning Attestations Medical Necessity Statement*: appropriate disposition planning Coding Level of Care Code Acute Code for Chg Fwd Diagnoses Acute anemia D64.9 Multiple fractures of ribs S22.49XA Urinary tract infection N39.0 Syncope R55 Intractable low back pain M54.59 Traumatic compression fracture of lumbar vertebra S32.000A Constipation due to opioid therapy K59.03; T40.2X5A Abdominal aortic aneurysm I71.40 Nephrolithiasis N20.0 Decubitus ulcer of coccyx L89.159 Cholelithiasis K80.20 Duodenal ulcer K26.9 Delirium R41.0
[2023-04-26] MEDS: pantoprazole DR 40 mg Tablet PO (18:07)
--- NOTE | 2023-04-26 18:32 | PC.NURSE ---
Patient resting in bed, refusing to get OOBTC, difficult turns, refuses most turns throughout shift. AAOx3, BP elevated some throughout shift but currently VSS. C/o pain to right side and pain when trying to get OOB. at bedside during shift, room clean and clutter free with call light within reach. No needs at this time, no new events during shift, mcknight patent with good UOP. Tolerating diet.
[2023-04-26] MEDS: TRAMadol 50 mg Tablet PO (21:29)
[2023-04-27] VITALS (8 sets, daily range): BP systolic 128–164; BP diastolic 74–93; PULSE 70–92; RESP 14–19; TEMP 36.6–37; O2SAT 91–95
[2023-04-27] MEDS: duloxetine 30 mg Capsule PO (06:16)
[2023-04-27] MEDS: sucralfate 1 gm Tablet PO ×2 (06:16→18:23)
[2023-04-27] MEDS: pantoprazole DR 40 mg Tablet PO ×2 (09:24→18:23)
[2023-04-27] MEDS: lidocaine 5% Patch 1 PATCH TOPICAL ×2 (09:25→20:00)
--- NOTE | 2023-04-27 12:39 | PC.NURSE ---
pt has scant amount of bright red blood in mcknight tubing, states he won't leave it alone . Educated pt on this but will need to be reinforced.
--- NOTE | 2023-04-27 16:47 | PM.PN ---
Subjective Subjective: Developing hematuria today. Mentation remains clear. Participated with physical therapy was able to get out of bed, however was unable to ambulate significantly. Mainly his ambulation was limited by pain. Awaiting therapy notes. Patient's transition to skilled rehab was declined by insurance today, family is appealing the decision. Medications: Reviewed: Yes Vitals/I&O/Wt Last Vital Signs Temp 97.8 F 04/27/23 12:00 Pulse 92 04/27/23 12:00 Resp 17 04/27/23 12:00 BP 128/74 04/27/23 12:00 Pulse Ox 94 04/27/23 12:00 O2 Del Method Room Air 04/27/23 08:00 O2 Flow Rate 2 04/27/23 08:00 04/27/23 04/27/23 04/27/23 06:59 14:59 22:59 Intake Total 440 / 440 Output Total 1000 / 2800 800 / 800 Balance -1000 / -1900 -360 / -360 Weight last 48 hrs Weight 78.585 kg Weight 78.471 kg Physical Exam Narrative: General: No acute distress, AO x3 HEENT: PERRLA, pupils bilaterally equal and reactive, pallors not present Chest: Normal vesicular breath sounds, no added sounds, equal good air entry bilaterally CVS: S1-S2 regular, no murmurs, no tachycardia, no gallops, no rubs Abdomen: Soft, nontender, no organomegaly, bowel sounds present Neuro: No focal deficits, no facial deformity, AO x3, power 5/5 in all limbs Urinary Catheter Management: Cary: Cath Placed During This Visit: yes Reason for Continuing Indwelling Catheter: Acute Urinary Retention or Obstruction Urinary Catheter Date of Insertion: 04/21/23 Urinary Catheter Time of Insertion: 15:44 Data 04/26/23 01:35 04/25/23 05:42 Micro: Microbiology 04/21/23 11:25 Blood Culture - Final Blood NO GROWTH AFTER 5 DAYS 04/21/23 11:19 Blood Culture - Final Blood NO GROWTH AFTER 5 DAYS A&P Assessment and plan (1) Acute anemia: Currently stable at 8.7 , last check yesterday, lab break today Status post PRBC transfusion during this admission. (2) Duodenal ulcer: discovered on endoscopy currently on protonix and carafate Likely to have been source of GI bleed (FOBT + )and anemia path pending (3) Multiple fractures of ribs: related to multiple falls falls suspected to be related to neurogenic claudication Continue incentive spirometry, Possible pathologic/osteoporotic fractures. Will benefit from follow-up for establishing osteoporosis treatment. Recent bone scan suggestive of osteoporosis. We will start Fosamax as outpatient. Patient was previously on bisphosphonates, however discontinued when he started to feel better. Denies any complications with bisphosphonates. 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 Velázquez. Likely Neurogenic claudication which limits his mobility and causes frequent falls (5) Delirium: Resolved , likely to have been hospital delirium (6) Falls frequently: as above PT OT. Plan Developed hematuria today. Closely monitor, suspect that this may be related to known nephrolithiasis. SLE: resume hydroxychloroquine GERD: PPI DDD OA DVT prophylaxis: SCDs. No heparin products due to anemia, recent GI bleed, d large uodenal ulcer, hematuria today Dispo: Patient is status post correction of anemia with blood transfusion, previously unable to be mobilized with physical therapy due to anemia, hypokalemia, being drowsy after morphine and hospital delirium. All of these factors are currently improving.?Patient participated with physical therapy today, his movement is limited by chronic and acute low back pain. Would likely benefit from ongoing physical therapy. Patient was planned to be transition to group home facility for continued intensive rehab, however we learned today that this has been declined by insurance. Family is appealing the decision. Until then he will continue inpatient therapy until appeal is pending. Attestations Medical Necessity Statement*: Appropriate disposition planning is ongoing, hematuria today, monitor until clearance. Coding Level of Care Code Acute Code for Chg Fwd Diagnoses Acute anemia D64.9 Duodenal ulcer K26.9 Multiple fractures of ribs S22.49XA Intractable low back pain M54.59 Delirium R41.0 Falls frequently R29.6
[2023-04-27] MEDS: hydroxychloroquine 200 mg Tablet PO (18:23)
[2023-04-27] MEDS: TRAMadol 50 mg Tablet PO (20:06)
[2023-04-27] MEDS: acetaminophen 325 mg Tablet 650 MG PO (20:06)
[2023-04-28] VITALS (9 sets, daily range): BP systolic 137–165; BP diastolic 74–86; PULSE 77–93; RESP 14–19; TEMP 36.3–36.7; O2SAT 91–96
[2023-04-28 05:53] LABS: Basophils % 0.1 %; Hematocrit 29.1 % (37-53); Lymphocytes # 0.4 10^3/uL (0.8-4.8); Lymphocytes % 3.2 %; Mean Corpuscular HGB Conc 32.3 g/dL (30-55); Mean Corpuscular Hemoglobin 31.4 pg (27-33); Mean Corpuscular Volume 97.3 fl (82-101); Mean Platelet Volume 11.4 fL (7.4-10.4); Monocytes # 2.4 10^3/uL (0.2-0.9); Monocytes % 21.9 %; Neutrophils # 8.09 10^3/uL (1.8-7.7); Neutrophils % 73.3 %; Nucleated Red Blood Cells % 0 %; Platelet Count 165 10^3/cmm (157-399); Red Blood Count 2.99 10^6/uL (3.85-5.65); Red Cell Distribution Width 16.5 % (12.1-15.1); White Blood Count 11.02 10^3/uL (3.29-11.43)
[2023-04-28] MEDS: duloxetine 30 mg Capsule PO (06:09)
[2023-04-28] MEDS: sucralfate 1 gm Tablet PO ×2 (06:09→17:54)
[2023-04-28 06:21] LABS: Alanine Aminotransferase 19 U/L (0-41); Alkaline Phosphatase 172 U/L (40-130); Anion Gap 10.7 (5-19); Aspartate Amino Transferase 13 U/L (0-40); Blood Urea Nitrogen 13 mg/dL (8-23); Calcium 8.4 mg/dL (8.5-10.5); Carbon Dioxide 31 mmol/L (22-29); Chloride 98 mmol/L (98-107); Globulin 2.2 g/dL (1.3-4.6); Glucose 123 mg/dL (65-115); Osmolality Calculated 283 mOsm/kg (285-295); Potassium 3.7 mmol/L (3.5-5.1); Sodium 136 mmol/L (136-145); Total Protein 5.2 g/dL (6.6-8.7)
[2023-04-28] MEDS: hydroxychloroquine 200 mg Tablet PO ×2 (08:42→17:54)
[2023-04-28] MEDS: pantoprazole DR 40 mg Tablet PO ×2 (08:42→17:54)
[2023-04-28] MEDS: lidocaine 5% Patch 1 PATCH TOPICAL ×2 (08:50→20:02)
--- NOTE | 2023-04-28 08:56 | PC.SOCIAL ---
IMM Updated Updated pt & his on IMM. No questions voiced. Provided pt a copy. Initialed, dated, & timed copy in chart.
--- NOTE | 2023-04-28 17:20 | PC.NURSE ---
Attempted to start an IV on patient x2. Ask charge nurse to please try.
--- NOTE | 2023-04-28 17:24 | PM.PN ---
Subjective Subjective: Hemoglobin is stable at 9.4 today. No new complaints. Hematuria is resolved, however patient is unable to void. Cary catheter plan to be replaced today after being removed on 04/27/2023. Medications: Reviewed: Yes Vitals/I&O/Wt Last Vital Signs Temp 97.8 F 04/28/23 15:41 Pulse 91 04/28/23 15:41 Resp 18 04/28/23 15:41 BP 165/84 04/28/23 15:41 Pulse Ox 91 04/28/23 15:41 O2 Del Method Room Air 04/28/23 15:41 O2 Flow Rate 2 04/27/23 08:00 04/28/23 04/28/23 04/28/23 06:59 14:59 22:59 Intake Total 240 / 240 Output Total 925 / 1725 550 / 550 Balance -925 / -925 -310 / -310 Weight last 48 hrs Weight 78.557 kg Weight 78.585 kg Physical Exam Narrative: General: No acute distress, AO x3 HEENT: PERRLA, pupils bilaterally equal and reactive, pallors not present Chest: Normal vesicular breath sounds, no added sounds, equal good air entry bilaterally CVS: S1-S2 regular, no murmurs, no tachycardia, no gallops, no rubs Abdomen: Soft, nontender, no organomegaly, bowel sounds present Neuro: No focal deficits, no facial deformity, AO x3, power 5/5 in all limbs Urinary Catheter Management: Cary: Cath Placed During This Visit: yes, but has since been removed by the nurse Reason for Continuing Indwelling Catheter: Decision to DC Catheter Urinary Catheter Date of Insertion: 04/21/23 Urinary Catheter Time of Insertion: 15:44 Date Urinary Catheter Removed: 04/27/23 Time Urinary Catheter Discontinued: 16:00 Data 04/28/23 05:30 04/28/23 05:30 A&P Assessment and plan (1) Acute anemia: Currently stable at 9.4. Status post PRBC transfusion during the course of admission. (2) Duodenal ulcer: discovered on endoscopy currently on protonix and carafate Likely to have been source of GI bleed (FOBT + )and anemia path pending (3) Multiple fractures of ribs: related to multiple falls falls suspected to be related to neurogenic claudication Continue incentive spirometry, Possible pathologic/osteoporotic fractures. Will benefit from follow-up for establishing osteoporosis treatment. Recent bone scan suggestive of osteoporosis. We will start Fosamax as outpatient. Patient was previously on bisphosphonates, however discontinued when he started to feel better. Denies any complications with bisphosphonates. 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 Velázquez. Likely Neurogenic claudication which limits his mobility and causes frequent falls Likely to benefit from skilled therapy ongoing. (5) Delirium: Resolved , likely to have been hospital delirium (6) Falls frequently: as above PT OT. (7) Urinary retention: Urinary retention today after removing Cary yesterday. Hematuria is currently resolved. Start Flomax 0.4 mg daily. Plan SLE: resume hydroxychloroquine GERD: PPI DDD OA DVT prophylaxis: SCDs. Add Heparin 5000 q12h now that hematuria resolved and Hb stable Dispo: Would likely benefit from ongoing physical therapy. Appropriate disposition planning is ongoing. Attestations Medical Necessity Statement*: Appropriate disposition planning is ongoing. Please see case management notes for details. Likely to benefit from ongoing inpatient therapy, place Cary for urinary retention Coding Level of Care Code Acute Code for Chg Fwd Straight Forward/Low MDM includes number and complexity of problems actively addressed during encounter, amount and/or complexity of data reviewed/ordered and described risk of complication, morbidity or mortality of management as documented Diagnoses Acute anemia D64.9 Duodenal ulcer K26.9 Multiple fractures of ribs S22.49XA Intractable low back pain M54.59 Delirium R41.0 Falls frequently R29.6 Urinary retention R33.9
[2023-04-28] MEDS: heparin 5,000 unit/mL INJ 1 mL 5000 UNIT SUBCUT (17:54)
[2023-04-28] MEDS: TRAMadol 50 mg Tablet PO (19:56)
[2023-04-28] MEDS: acetaminophen 325 mg Tablet 650 MG PO (19:57)
[2023-04-29] VITALS (10 sets, daily range): BP systolic 124–168; BP diastolic 64–85; PULSE 69–85; RESP 16–17; TEMP 36.2–36.5; O2SAT 92–95
[2023-04-29] MEDS: TRAMadol 50 mg Tablet PO ×2 (05:46→21:29)
[2023-04-29] MEDS: acetaminophen 325 mg Tablet 650 MG PO ×3 (05:46→21:29)
[2023-04-29] MEDS: sucralfate 1 gm Tablet PO ×2 (05:47→17:29)
[2023-04-29] MEDS: heparin 5,000 unit/mL INJ 1 mL 5000 UNIT SUBCUT ×2 (05:47→17:29)
[2023-04-29] MEDS: duloxetine 30 mg Capsule PO (05:47)
[2023-04-29] MEDS: hydroxychloroquine 200 mg Tablet PO ×2 (08:40→17:29)
[2023-04-29] MEDS: tamsulosin 0.4 mg Capsule PO (08:41)
[2023-04-29] MEDS: pantoprazole DR 40 mg Tablet PO ×2 (08:41→17:29)
--- NOTE | 2023-04-29 17:04 | P.PN_ITS ---
Subjective Subjective: No new complaints today. Cary needed to be replaced yesterday for urinary retention. No other complaints. Doing well overall. Participating with physical therapy. Medications: Reviewed: Yes Vitals/I&O/Wt Last Vital Signs Temp 97.5 F L 04/29/23 10:53 Pulse 70 04/29/23 14:00 Resp 17 04/29/23 10:53 BP 146/74 04/29/23 10:53 Pulse Ox 94 04/29/23 10:53 O2 Del Method Room Air 04/29/23 10:53 O2 Flow Rate 2 04/29/23 08:00 04/29/23 04/29/23 04/29/23 06:59 14:59 22:59 Intake Total 600 / 600 Output Total 850 / 1400 300 / 300 Balance -850 / -800 300 / 300 Weight last 48 hrs Weight 78.109 kg Weight 78.557 kg Physical Exam Narrative: General: No acute distress, AO x3 HEENT: PERRLA, pupils bilaterally equal and reactive, pallors not present Chest: Normal vesicular breath sounds, no added sounds, equal good air entry bilaterally CVS: S1-S2 regular, no murmurs, no tachycardia, no gallops, no rubs Abdomen: Soft, nontender, no organomegaly, bowel sounds present Neuro: No focal deficits, no facial deformity, AO x3, power 5/5 in all limbs Urinary Catheter Management: Cary: Cath Placed During This Visit: yes, but has since been removed by the nurse Reason for Continuing Indwelling Catheter: Acute Urinary Retention or Obstruction Urinary Catheter Date of Insertion: 04/28/23 Urinary Catheter Time of Insertion: 15:00 Date Urinary Catheter Removed: 04/27/23 Time Urinary Catheter Discontinued: 16:00 Data 04/28/23 05:30 04/28/23 05:30 A&P Assessment and plan (1) Acute anemia: Currently stable at 9.4. Status post PRBC transfusion during the course of admission. (2) Duodenal ulcer: discovered on endoscopy currently on protonix and carafate Likely to have been source of GI bleed (FOBT + )and anemia path pending (3) Multiple fractures of ribs: related to multiple falls falls suspected to be related to neurogenic claudication Continue incentive spirometry, Possible pathologic/osteoporotic fractures. Will benefit from follow-up for establishing osteoporosis treatment. Recent bone scan suggestive of osteoporosis. We will start Fosamax as outpatient. Patient was previously on bisphosphonates, however discontinued when he started to feel better. Denies any complications with bisphosphonates. 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 Velázquez. Likely Neurogenic claudication which limits his mobility and causes frequent falls Likely to benefit from skilled therapy ongoing. (5) Delirium: Resolved , likely to have been hospital delirium (6) Falls frequently: as above PT OT. (7) Urinary retention: Urinary retention today after removing Cary , need to be placed again on 04/28 Hematuria is currently resolved. Started Flomax 0.4 mg daily. Plan SLE: resume hydroxychloroquine GERD: PPI DDD OA DVT prophylaxis: SCDs. Add Heparin 5000 q12h now that hematuria resolved and Hb stable Dispo: Would likely benefit from ongoing physical therapy. Appropriate disposition planning is ongoing. Attestations Medical Necessity Statement*: appropriate dispotion planning Coding Level of Care Code Acute Code for [facility] Fwd Diagnoses Acute anemia D64.9 Duodenal ulcer K26.9 Multiple fractures of ribs S22.49XA Intractable low back pain M54.59 Delirium R41.0 Falls frequently R29.6 Urinary retention R33.9
[2023-04-30] VITALS (9 sets, daily range): BP systolic 111–159; BP diastolic 68–78; PULSE 68–87; RESP 15–17; TEMP 36.4–36.8; O2SAT 91–96
[2023-04-30 05:06] LABS: Basophils % 0.4 %; Eosinophils % 0.2 %; Hematocrit 27.2 % (37-53); Lymphocytes # 0.3 10^3/uL (0.8-4.8); Lymphocytes % 7.5 %; Mean Corpuscular HGB Conc 31.3 g/dL (30-55); Mean Corpuscular Hemoglobin 30.7 pg (27-33); Mean Corpuscular Volume 98.2 fl (82-101); Mean Platelet Volume 11.6 fL (7.4-10.4); Monocytes % 21.1 %; Neutrophils # 3.14 10^3/uL (1.8-7.7); Nucleated Red Blood Cells % 0 %; Platelet Count 156 10^3/cmm (157-399); Red Blood Count 2.77 10^6/uL (3.85-5.65); Red Cell Distribution Width 15.9 % (12.1-15.1); White Blood Count 4.55 10^3/uL (3.29-11.43)
[2023-04-30 05:32] LABS: Alanine Aminotransferase 15 U/L (0-41); Albumin Level 2.7 g/dL (3.5-5.2); Alkaline Phosphatase 163 U/L (40-130); Aspartate Amino Transferase 14 U/L (0-40); Blood Urea Nitrogen 14 mg/dL (8-23); Calcium 8.3 mg/dL (8.5-10.5); Carbon Dioxide 31 mmol/L (22-29); Chloride 100 mmol/L (98-107); Globulin 2.3 g/dL (1.3-4.6); Glucose 101 mg/dL (65-115); Osmolality Calculated 285 mOsm/kg (285-295); Sodium 137 mmol/L (136-145); Total Bilirubin 0.6 mg/dL (0.15-1.2)
[2023-04-30] MEDS: sucralfate 1 gm Tablet PO ×2 (06:30→17:21)
[2023-04-30] MEDS: acetaminophen 325 mg Tablet 650 MG PO (06:31)
[2023-04-30] MEDS: TRAMadol 50 mg Tablet PO ×2 (06:31→20:44)
[2023-04-30] MEDS: heparin 5,000 unit/mL INJ 1 mL 5000 UNIT SUBCUT ×2 (06:31→17:21)
[2023-04-30] MEDS: duloxetine 30 mg Capsule PO (06:31)
[2023-04-30] MEDS: lidocaine 5% Patch 1 PATCH TOPICAL (08:06)
[2023-04-30] MEDS: pantoprazole DR 40 mg Tablet PO ×2 (08:06→17:21)
[2023-04-30] MEDS: tamsulosin 0.4 mg Capsule PO (08:06)
[2023-04-30] MEDS: hydroxychloroquine 200 mg Tablet PO ×2 (08:12→18:06)
--- NOTE | 2023-04-30 09:28 | PC.SOCIAL ---
IMM Update pg 2 of IMM updated and reviewed w/ patient and his . Copy provided and copy dated, initialed and placed in chart.
--- NOTE | 2023-04-30 15:53 | P.PN_ITS ---
Subjective Subjective: He is overall doing all right, but generally has been very weak, not able to walk well. Vitals/I&O/Wt Last Vital Signs Temp 97.6 F 04/30/23 15:25 Pulse 78 04/30/23 15:25 Resp 16 04/30/23 15:25 BP 166/99 04/30/23 15:25 Pulse Ox 96 04/30/23 15:25 O2 Del Method Room Air 04/30/23 15:25 O2 Flow Rate 2 04/29/23 08:00 04/30/23 04/30/23 04/30/23 06:59 14:59 22:59 Intake Total 600 / 600 Output Total 1250 / 2450 Balance -1250 / -1250 600 / 600 Weight last 48 hrs Weight 77.428 kg Weight 78.109 kg Physical Exam Narrative: His is at bedside. Const: COMMON NORMALS: patient oriented x3 and alert GENERAL APPEARANCE: cooperative ORIENTATION/CONSCIOUSNESS: Yes awake HENMT: COMMON NORMALS: oropharynx normal Neck/C-Spine: COMMON NORMALS: no JVD Resp: COMMON NORMALS: normal respiratory effort and clear to auscultation bilaterally AUSCULTATION: clear to auscultation bilaterally Cardio: COMMON NORMALS: no JVD, regular rhythm, S1 normal heart sound present, S2 normal heart sound present and No murmurs present (Cardio) RHYTHM: regular rhythm HEART SOUNDS: S1 normal heart sound present and S2 normal heart sound present GI: COMMON NORMALS: Normal to inspection, nondistended, normoactive bowel sounds present, Soft to palpation and non-tender PALPATION: Yes Soft to palpation Extremity: COMMON NORMALS: no joint enlargement and no pedal edema Neuro: COMMON NORMALS: patient oriented x3 and moves all extremities SENSORIUM/ORIENTATION: Yes alert Skin: COMMON NORMALS: no rashes or lesions noted GENERAL SKIN EXAM: no ra shes or lesions noted Urinary Catheter Management: Cary: Cath Placed During This Visit: yes, but has since been removed by the nurse Reason for Continuing Indwelling Catheter: Acute Urinary Retention or Obstruction Urinary Catheter Date of Insertion: 04/28/23 Urinary Catheter Time of Insertion: 15:00 Date Urinary Catheter Removed: 04/27/23 Time Urinary Catheter Discontinued: 16:00 Data 04/30/23 04:39 04/30/23 04:39 A&P Assessment and plan (1) Falls frequently: Physically deconditioned. At risk for falling. Discussed with case management, discussed with PT, we will adjust additionally his pain medications to allow for better mobilization. Combination pain control including Tylenol, lidocaine patch. Increase tramadol frequency to every 4 hours as needed. Cautioned him and his regarding adverse effects including constipation, delirium. Avoid NSAIDs. As above PT OT. (2) Multiple fractures of ribs: Related to multiple falls. Fall precautions. Continue to work with PT, OT. Continue arrangements for rehabilitation after discharge. Encouraged incentive spirometer use. Sodium noted 137. Reassess chemistry. Continue pain control for multiple fractures. Falls suspected to be related to neurogenic claudication Possible pathologic/osteoporotic fractures. Will benefit from follow-up for establishing osteoporosis treatment. Recent bone scan suggestive of osteoporosis. We will start Fosamax as outpatient. Patient was previously on bisphosphonates, however discontinued when he started to feel better. Denies any complications with bisphosphonates. (3) Acute anemia: CBC reviewed. Hemoglobin with some fluctuation, today down to 8.5. Reassess CBC. With known ulcer. Continue PPI. Carafate. Avoid NSAIDs. Status post PRBC transfusion during the course of admission. (4) Duodenal ulcer: discovered on endoscopy currently on protonix and carafate Likely to have been source of GI bleed (FOBT + )and anemia path pending (5) Intractable low back pain: Chronic back pain from vertebral compression fracture, status post verteb roplasty in February 2023, follows with pain management as outpatient with Dr. Velázquez. Likely Neurogenic claudication which limits his mobility and causes frequent falls Likely to benefit from skilled therapy ongoing. (6) Delirium: Resolved , likely to have been hospital delirium (7) Urinary retention: Urinary retention today after removing Cary , need to be placed again on 04/28 Hematuria is currently resolved. Started Flomax 0.4 mg daily. Plan SLE: resume hydroxychloroquine GERD: PPI DDD OA DVT prophylaxis: SCDs. Add Heparin 5000 q12h now that hematuria resolved and Hb stable Dispo: Would likely benefit from ongoing physical therapy. Appropriate disposition planning is ongoing. Attestations Medical Necessity Statement*: Continue mission for assessment management following multiple rib fractures, acute anemia with suspected GI bleeding, post discharge planning and arrangements. Diagnoses Falls frequently R29.6 Multiple fractures of ribs S22.49XA Acute anemia D64.9 Duodenal ulcer K26.9 Intractable low back pain M54.59 Delirium R41.0 Urinary retention R33.9
--- NOTE | 2023-04-30 23:05 | PC.NURSE ---
Patient alert and oriented at beginning of shift. Patient now thinking he is at home and had to be reoriented that he is in the hospital. Patient then asked does my know I'm here. Patient's bed alarm is set.
[2023-05-01] VITALS (8 sets, daily range): BP systolic 107–163; BP diastolic 65–84; PULSE 80–110; RESP 16–20; TEMP 36.4–36.9; O2SAT 92–95
[2023-05-01] MEDS: sucralfate 1 gm Tablet PO ×2 (06:14→17:14)
[2023-05-01] MEDS: heparin 5,000 unit/mL INJ 1 mL 5000 UNIT SUBCUT ×2 (06:15→17:14)
[2023-05-01] MEDS: duloxetine 30 mg Capsule PO (06:15)
[2023-05-01 06:36] LABS: Basophils % 0.3 %; Hematocrit 29.8 % (37-53); Lymphocytes # 0.3 10^3/uL (0.8-4.8); Lymphocytes % 8.8 %; Mean Corpuscular HGB Conc 30.9 g/dL (30-55); Mean Corpuscular Hemoglobin 30.3 pg (27-33); Mean Platelet Volume 11.4 fL (7.4-10.4); Monocytes # 0.7 10^3/uL (0.2-0.9); Monocytes % 19.6 %; Neutrophils # 2.63 10^3/uL (1.8-7.7); Neutrophils % 69.7 %; Nucleated Red Blood Cells % 0 %; Platelet Count 185 10^3/cmm (157-399); Red Blood Count 3.04 10^6/uL (3.85-5.65); Red Cell Distribution Width 15.8 % (12.1-15.1); White Blood Count 3.77 10^3/uL (3.29-11.43)
[2023-05-01 06:50] LABS: Alanine Aminotransferase 21 U/L (0-41); Albumin Level 3.2 g/dL (3.5-5.2); Alkaline Phosphatase 196 U/L (40-130); Aspartate Amino Transferase 16 U/L (0-40); Blood Urea Nitrogen 14 mg/dL (8-23); Calcium 8.5 mg/dL (8.5-10.5); Carbon Dioxide 31 mmol/L (22-29); Chloride 100 mmol/L (98-107); Globulin 1.6 g/dL (1.3-4.6); Glucose 105 mg/dL (65-115); Osmolality Calculated 283 mOsm/kg (285-295); Sodium 136 mmol/L (136-145); Total Bilirubin 0.6 mg/dL (0.15-1.2); Total Protein 4.8 g/dL (6.6-8.7)
[2023-05-01] MEDS: tamsulosin 0.4 mg Capsule PO (08:48)
[2023-05-01] MEDS: pantoprazole DR 40 mg Tablet PO ×2 (08:48→17:14)
[2023-05-01] MEDS: hydroxychloroquine 200 mg Tablet PO ×2 (08:48→17:14)
[2023-05-01] MEDS: lidocaine 5% Patch 1 PATCH TOPICAL (08:48)
[2023-05-01] MEDS: acetaminophen 325 mg Tablet 650 MG PO (11:46)
--- NOTE | 2023-05-01 12:03 | PC.NURSE ---
PT working with patient now and has been for a while. Telemetry appears to be going wild. Pt having patient stand and sit with a sit to stand.
--- NOTE | 2023-05-01 15:45 | PC.NURSE ---
Patient has been pulling at mcknight. Urine noted to be red in color with one small clot noted. Attempted to reorient patient at this time. Dr. Gonzalez notified.
--- NOTE | 2023-05-01 16:03 | PC.NURSE ---
Per Dr. Gonzalez, irrigate mcknight prn.
--- NOTE | 2023-05-01 16:43 | PC.NURSE ---
Patient keeps pulling off tele. Dr. Gonzalez notified. States may leave of tele. Cary irrigated per Dr. Gonzalez with 30ml of sterile water with no clots returned. Cary flowing freely at this time.
--- NOTE | 2023-05-01 17:19 | PM.PN ---
Subjective Subjective: States he is doing all right. States he is doing all right. Has been working with incentive spirometer. Later on noted pulling on his Cary, noted to have small clots in urine. Vitals/I&O/Wt Last Vital Signs Temp 97.5 F L 05/01/23 15:02 Pulse 93 05/01/23 15:02 Resp 16 05/01/23 15:02 BP 107/65 05/01/23 15:02 Pulse Ox 92 05/01/23 15:02 O2 Del Method Room Air 05/01/23 15:02 O2 Flow Rate 2 04/29/23 08:00 05/01/23 05/01/23 05/01/23 06:59 14:59 22:59 Intake Total 360 / 360 Output Total 450 / 2100 1100 / 1100 Balance -450 / -1260 360 / 360 -1100 / -740 Weight last 48 hrs Weight 77.337 kg Weight 77.428 kg Physical Exam Narrative: His is at bedside. Const: COMMON NORMALS: patient oriented x3 and alert GENERAL APPEARANCE: cooperative ORIENTATION/CONSCIOUSNESS: Yes awake HENMT: COMMON NORMALS: oropharynx normal Neck/C-Spine: COMMON NORMALS: no JVD Resp: COMMON NORMALS: normal respiratory effort and clear to auscultation bilaterally AUSCULTATION: clear to auscultation bilaterally Cardio: COMMON NORMALS: no JVD, regular rhythm, S1 normal heart sound present, S2 normal heart sound present and No murmurs present (Cardio) RHYTHM: regular rhythm HEART SOUNDS: S1 normal heart sound present and S2 normal heart sound present GI: COMMON NORMALS: Normal to inspection, nondistended, normoactive bowel sounds present, Soft to palpation and non-tender PALPATION: Yes Soft to palpation Extremity: COMMON NORMALS: no joint enlargement and no pedal edema Neuro: COMMON NORMALS: patient oriented x3 and moves all extremities SENSORIUM/ORIENTATION: Yes alert Skin: COMMON NORMALS: no rashes or lesions noted GENERAL SKIN EXAM: no rashes or lesions noted Urinary Catheter Management: Cary: Cath Placed During This Visit: yes, but has since been removed by the nurse Reason for Continuing Indwelling Catheter: Acute Urinary Retention or Obstruction Urinary Catheter Date of Insertion: 04/28/23 Urinary Catheter Time of Insertion: 15:00 Date Urinary Catheter Removed: 04/27/23 Time Urinary Catheter Discontinued: 16:00 Data 05/01/23 06:12 05/01/23 06:12 A&P Assessment and plan (1) Falls frequently: Pain has been under better control. Continue mobilization. We will hold off on removing Cary for now as he had pulled on it and there was a small blood clot in urine. Discussed with nursing staff irrigation in case of further clots, will monitor for now, tomorrow if no further blood clots or bleeding, DC Cary. Combination pain control including Tylenol, lidocaine patch. Increase tramadol frequency to every 4 hours as needed. Cautioned him and his regarding adverse effects including constipation, delirium. Avoid NSAIDs. As above PT OT. Discussed with case management. Pending approval for rehabilitation at [facility]. (2) Multiple fractures of ribs: Related to multiple falls. Fall precautions. Continue to work with PT, OT. Continue arrangements for rehabilitation after discharge. Encouraged incentive spirometer use. Chemistry reviewed, sodium noted 136. Reassess chemistry. Continue pain control for multiple fractures. Falls suspected to be related to neurogenic claudication Possible pathologic/osteoporotic fractures. Will benefit from follow-up for establishing osteoporosis treatment. Recent bone scan suggestive of osteoporosis. We will start Fosamax as outpatient. Patient was previously on bisphosphonates, however discontinued when he started to feel better. Denies any complications with bisphosphonates. (3) Acute anemia: CBC reviewed. Hemoglobin with some fluctuation, today down to 8.5. Reassess CBC. With known ulcer. Continue PPI. Carafate. Avoid NSAIDs. Status post PRBC transfusion during the course of admission. (4) Duodenal ulcer: discovered on endoscopy currently on protonix and carafate Likely to have been source of GI bleed (FOBT + )and anemia path pending (5) Intractable low back pain: Chronic back pain from vertebral compression fracture, status post vertebroplasty in February 2023, follows with pain management as outpatient with Dr. Velázquez. Likely Neurogenic claudication which limits his mobility and causes frequent falls Likely to benefit from skilled therapy ongoing. (6) Delirium: Resolved , likely to have been hospital delirium (7) Urinary retention: Urinary retention today after removing Cary , need to be placed again on 04/28 Hematuria is currently resolved. Started Flomax 0.4 mg daily. Plan SLE: resume hydroxychloroquine GERD: PPI DDD OA DVT prophylaxis: SCDs. Add Heparin 5000 q12h now that hematuria resolved and Hb stable Dispo: Would likely benefit from ongoing physical therapy. Appropriate disposition planning is ongoing. Attestations Medical Necessity Statement*: Continue assessment management of multiple fractures, optimization of pain control, arrangements for postdischarge rehabilitation. Diagnoses Falls frequently R29.6 Multiple fractures of ribs S22.49XA Acute anemia D64.9 Duodenal ulcer K26.9 Intractable low back pain M54.59 Delirium R41.0 Urinary retention R33.9
[2023-05-01] MEDS: TRAMadol 50 mg Tablet PO (19:07)
[2023-05-02] VITALS (7 sets, daily range): BP systolic 94–152; BP diastolic 58–83; PULSE 72–98; RESP 16–18; TEMP 36.4–36.8; O2SAT 92–95
--- NOTE | 2023-05-02 04:28 | PC.NURSE ---
Dr. Mcclure notified that patient still has bright red hematuria in mcknight. Mcknight seems to be draining well and no clots visualized. Verified will Dr. Mcclure to still give SQ Heparin at 05:30.
[2023-05-02 05:13] LABS: Basophils % 0.2 %; Hematocrit 29.6 % (37-53); Lymphocytes # 0.4 10^3/uL (0.8-4.8); Lymphocytes % 10.6 %; Mean Corpuscular HGB Conc 31.4 g/dL (30-55); Mean Corpuscular Hemoglobin 30.4 pg (27-33); Mean Corpuscular Volume 96.7 fl (82-101); Mean Platelet Volume 11.6 fL (7.4-10.4); Monocytes # 0.9 10^3/uL (0.2-0.9); Monocytes % 20.9 %; Neutrophils # 2.72 10^3/uL (1.8-7.7); Neutrophils % 66.8 %; Nucleated Red Blood Cells % 0 %; Platelet Count 213 10^3/cmm (157-399); Red Blood Count 3.06 10^6/uL (3.85-5.65); Red Cell Distribution Width 15.9 % (12.1-15.1); White Blood Count 4.07 10^3/uL (3.29-11.43)
[2023-05-02 05:31] LABS: Alanine Aminotransferase 27 U/L (0-41); Albumin Level 3.2 g/dL (3.5-5.2); Alkaline Phosphatase 210 U/L (40-130); Anion Gap 10.1 (5-19); Aspartate Amino Transferase 23 U/L (0-40); Blood Urea Nitrogen 15 mg/dL (8-23); Calcium 8.8 mg/dL (8.5-10.5); Carbon Dioxide 31 mmol/L (22-29); Chloride 102 mmol/L (98-107); Globulin 2.3 g/dL (1.3-4.6); Glucose 100 mg/dL (65-115); Osmolality Calculated 289 mOsm/kg (285-295); Potassium 4.1 mmol/L (3.5-5.1); Sodium 139 mmol/L (136-145); Total Bilirubin 0.8 mg/dL (0.15-1.2); Total Protein 5.5 g/dL (6.6-8.7)
[2023-05-02] MEDS: duloxetine 30 mg Capsule PO (06:05)
[2023-05-02] MEDS: heparin 5,000 unit/mL INJ 1 mL 5000 UNIT SUBCUT ×2 (06:05→17:01)
[2023-05-02] MEDS: sucralfate 1 gm Tablet PO ×2 (06:05→17:01)
[2023-05-02] MEDS: tamsulosin 0.4 mg Capsule PO (09:30)
[2023-05-02] MEDS: hydroxychloroquine 200 mg Tablet PO ×2 (09:30→17:01)
[2023-05-02] MEDS: pantoprazole DR 40 mg Tablet PO ×2 (09:30→17:01)
[2023-05-02] MEDS: lidocaine 5% Patch 1 PATCH TOPICAL (09:31)
[2023-05-02 10:40] LABS: Add Urine Culture? Yes; Add Urine Microscopic? YES; Bacteria Urine TRACE /hpf; Bilirubin Urine Neg (Negative); Blood Urine 3+ (Negative); Glucose Urine UA Norm (Normal); Ketones Urine Negative (Negative); Leukocyte Esterase Urine 1+ (Negative); Nitrate Urine Negative (Negative); Protein Urine 1+ (Negative); RBC Urine TOO NUMEROUS TO CNT /hpf (0-2); Squamous Epithelial Cell Urine 0-4 /hpf (0-5); Urine Appearance Cloudy (CLEAR); Urine Color Red (Yellow); Urobilinogen Urine Norm (Negative); pH Urine 9 (5-7)
--- NOTE | 2023-05-02 10:57 | PC.SOCIAL ---
IMM Updated Updated pt & his on IMM. No questions voiced. Provided pt a copy. Initialed, dated, & timed copy in chart.
--- NOTE | 2023-05-02 17:40 | P.PN_ITS ---
Subjective Subjective: Still having some hematuria, no clots, denies any urinary symptoms, no burning, itching or pain. Vitals/I&O/Wt Last Vital Signs Temp 97.8 F 05/02/23 15:09 Pulse 81 05/02/23 15:09 Resp 16 05/02/23 15:09 BP 124/73 05/02/23 15:09 Pulse Ox 95 05/02/23 15:09 O2 Del Method Room Air 05/02/23 15:09 O2 Flow Rate 2 04/29/23 08:00 05/02/23 05/02/23 05/02/23 06:59 14:59 22:59 Intake Total 360 / 360 120 / 480 Output Total 500 / 2150 600 / 600 Balance -500 / -1670 360 / 360 -480 / -120 Weight last 48 hrs Weight 75.807 kg Weight 77.337 kg Physical Exam Narrative: His is at bedside. Const: COMMON NORMALS: patient oriented x3 and alert GENERAL APPEARANCE: cooperative ORIENTATION/CONSCIOUSNESS: Yes awake HENMT: COMMON NORMALS: oropharynx normal Neck/C-Spine: COMMON NORMALS: no JVD Resp: COMMON NORMALS: normal respiratory effort and clear to auscultation bilaterally AUSCULTATION: clear to auscultation bilaterally Cardio: COMMON NORMALS: no JVD, regular rhythm, S1 normal heart sound present, S2 normal heart sound present and No murmurs present (Cardio) RHYTHM: regular rhythm HEART SOUNDS: S1 normal heart sound present and S2 normal heart sound present GI: COMMON NORMALS: Normal to inspection, nondistended, normoactive bowel sounds present, Soft to palpation and non-tender PALPATION: Yes Soft to palpation Extremity: COMMON NORMALS: no joint enlargement and no pedal edema Neuro: COMMON NORMALS: patient oriented x3 and moves all extremities SENSORIUM/ORIENTATION: Yes alert Skin: COMMON NORMALS: no rashes or lesions noted GENERAL SKIN EXAM: no rashes or lesions noted Urinary Catheter Management: Cary: Cath Placed During This Visit: yes, but has since been removed by the nurse Reason for Continuing Indwelling Catheter: Acute Urinary Retention or Obstruction Urinary Catheter Date of Insertion: 04/28/23 Urinary Catheter Time of Insertion: 15:00 Date Urinary Catheter Removed: 04/27/23 Time Urinary Catheter Discontinued: 16:00 Data 05/02/23 05:02 05/02/23 05:02 A&P Assessment and plan (1) Hematuria: Still noted some hematuria, although does not appear intensely red, keep Cary in place for now. Reassess. No clots visible. Seems after pulling on the catheter, discussed possible urethral versus prostate trauma, discussed follow- up with urology. We may consider keeping the catheter in place until he can see urology. Discussed consideration of possible cystitis, reviewed UA with noted RBC, does have a few WBC, 5-10. Urine culture was sent out and pending. At risk of anemia, repeat CBC. As per discussion with case management still pending approval for SNF. (2) Falls frequently: Pain has been under better control. Continue mobilization. Discussed with case management, still pending authorization to proceed to SNF for rehabilitation. Combination pain control including Tylenol, lidocaine patch. Increase tramadol frequency to every 4 hours as needed. Requiring pain control but is also at risk of delirium. Cautioned him and his regarding adverse effects including constipation, delirium. Avoid NSAIDs. As above PT OT. (3) Multiple fractures of ribs: Related to multiple falls. Fall precautions. Continue to work with PT, OT. Continue arrangements for rehabilitation after discharge. Encouraged incentive spirometer use. Chemistry reviewed, sodium noted 136. Reassess chemistry. Continue pain control for multiple fractures. Falls suspected to be related to neurogenic claudication Possible pathologic/osteoporotic fractures. Will benefit from follow-up for establishing osteoporosis treatment. Recent bone scan suggestive of osteoporosis. We will start Fosamax as outpatient. Patient was previously on bisphosphonates, however discontinued when he started to feel better. Denies any complications with bisphosphonates. (4) Acute anemia: Reviewed hemoglobin, noted 9.3. As he is having hematuria at risk of additional anemia. We will repeat CBC. With known ulcer. Continue PPI. Carafate. Avoid NSAIDs. Status post PRBC transfusion during the course of admission. (5) Duodenal ulcer: discovered on endoscopy currently on protonix and carafate Likely to have been source of GI bleed (FOBT + )and anemia path pending (6) Intractable low back pain: Chronic back pain from vertebral compression fracture, status post vertebroplasty in February 2023, follows with pain management as outpatient with Dr. Velázquez. Likely Neurogenic claudication which limits his mobility and causes frequent falls Likely to benefit from skilled therapy ongoing. (7) Delirium: Resolved , likely to have been hospital delirium (8) Urinary retention: Urinary retention today after removing Cary , need to be placed again on 04/28 Hematuria recurred Started Flomax 0.4 mg daily. Plan SLE: resume hydroxychloroquine GERD: PPI DDD OA DVT prophylaxis: SCDs. Add Heparin 5000 q12h now that hematuria resolved and Hb stable Dispo: Would likely benefit from ongoing physical therapy. Appropriate disposition planning is ongoing. Attestations Medical Necessity Statement*: Continue assessment management of hematuria, multiple fractures, optimization of pain control, arrangements for postdischarge rehabilitation. Diagnoses Hematuria R31.9 Falls frequently R29.6 Multiple fractures of ribs S22.49XA Acute anemia D64.9 Duodenal ulcer K26.9 Intractable low back pain M54.59 Delirium R41.0 Urinary retention R33.9
[2023-05-03] VITALS (9 sets, daily range): BP systolic 110–143; BP diastolic 68–76; PULSE 72–93; RESP 15–18; TEMP 36.4–36.9; O2SAT 92–98; BMI 23.3
[2023-05-03] MEDS: heparin 5,000 unit/mL INJ 1 mL 5000 UNIT SUBCUT ×2 (06:23→17:04)
[2023-05-03] MEDS: sucralfate 1 gm Tablet PO ×2 (06:23→17:04)
[2023-05-03] MEDS: duloxetine 30 mg Capsule PO (06:23)
[2023-05-03 06:25] LABS: Basophils % 0.3 %; Hematocrit 26.8 % (37-53); Lymphocytes # 0.5 10^3/uL (0.8-4.8); Lymphocytes % 14.7 %; Mean Corpuscular Hemoglobin 30.4 pg (27-33); Mean Corpuscular Volume 98.2 fl (82-101); Mean Platelet Volume 11.3 fL (7.4-10.4); Monocytes # 0.7 10^3/uL (0.2-0.9); Monocytes % 20.2 %; Neutrophils # 2.19 10^3/uL (1.8-7.7); Neutrophils % 63.1 %; Nucleated Red Blood Cells % 0 %; Platelet Count 185 10^3/cmm (157-399); Red Blood Count 2.73 10^6/uL (3.85-5.65); Red Cell Distribution Width 16.4 % (12.1-15.1); White Blood Count 3.47 10^3/uL (3.29-11.43)
[2023-05-03 07:10] LABS: Alanine Aminotransferase 29 U/L (0-41); Albumin Level 2.8 g/dL (3.5-5.2); Alkaline Phosphatase 196 U/L (40-130); Anion Gap 11.2 (5-19); Aspartate Amino Transferase 22 U/L (0-40); Blood Urea Nitrogen 15 mg/dL (8-23); Calcium 8.6 mg/dL (8.5-10.5); Carbon Dioxide 28 mmol/L (22-29); Chloride 103 mmol/L (98-107); Globulin 2.1 g/dL (1.3-4.6); Glucose 101 mg/dL (65-115); Osmolality Calculated 287 mOsm/kg (285-295); Potassium 4.2 mmol/L (3.5-5.1); Sodium 138 mmol/L (136-145); Total Bilirubin 0.6 mg/dL (0.15-1.2); Total Protein 4.9 g/dL (6.6-8.7)
[2023-05-03] MEDS: hydroxychloroquine 200 mg Tablet PO ×2 (10:03→17:04)
[2023-05-03] MEDS: pantoprazole DR 40 mg Tablet PO ×2 (10:03→17:03)
[2023-05-03] MEDS: tamsulosin 0.4 mg Capsule PO (10:04)
[2023-05-03] MEDS: lidocaine 5% Patch 1 PATCH TOPICAL ×2 (10:26→20:34)
--- NOTE | 2023-05-03 19:23 | PM.PN ---
Subjective Subjective: Hematuria is subsiding. She keeps working with physical therapy. Is working with incentive spirometry. Vitals/I&O/Wt Last Vital Signs Temp 98 F 05/03/23 15:51 Pulse 72 05/03/23 15:51 Resp 18 05/03/23 15:51 BP 123/69 05/03/23 15:51 Pulse Ox 93 05/03/23 15:51 O2 Del Method Nasal Cannula 05/03/23 15:51 O2 Flow Rate 2 05/03/23 08:00 05/03/23 05/03/23 05/03/23 06:59 14:59 22:59 Intake Total 960 / 960 Output Total 250 / 1350 500 / 500 Balance -250 / -630 960 / 960 -500 / 460 Weight last 48 hrs Weight 75.807 kg Weight 75.807 kg Physical Exam Const: COMMON NORMALS: patient oriented x3 and alert GENERAL APPEARANCE: cooperative ORIENTATION/CONSCIOUSNESS: Yes awake HENMT: COMMON NORMALS: oropharynx normal Neck/C-Spine: COMMON NORMALS: no JVD Resp: COMMON NORMALS: normal respiratory effort and clear to auscultation bilaterally AUSCULTATION: clear to auscultation bilaterally Cardio: COMMON NORMALS: no JVD, regular rhythm, S1 normal heart sound present, S2 normal heart sound present and No murmurs present (Cardio) RHYTHM: regular rhythm HEART SOUNDS: S1 normal heart sound present and S2 normal heart sound present GI: COMMON NORMALS: Normal to inspection, nondistended, normoactive bowel sounds present, Soft to palpation and non-tender PALPATION: Yes Soft to palpation Extremity: COMMON NORMALS: no joint enlargement and no pedal edema Neuro: COMMON NORMALS: patient oriented x3 and moves all extremities SENSORIUM/ORIENTATION: Yes alert Skin: COMMON NORMALS: no rashes or lesions noted GENERAL SKIN EXAM: no rashes or lesions noted Urinary Catheter Management: [place]: Cath Placed During This Visit: yes, but has since been removed by the nurse Reason for Continuing Indwelling Catheter: Acute Urinary Retention or Obstruction Urinary Catheter Date of Insertion: 04/28/23 Urinary Catheter Time of Insertion: 15:00 Date Urinary Catheter Removed: 04/27/23 Time Urinary Catheter Discontinued: 16:00 Data 05/03/23 06:16 05/03/23 06:16 Micro: Microbiology 05/02/23 10:10 Urine Culture - Preliminary Urine,Clean Catch A&P Assessment and plan (1) Hematuria: Noted subsiding. Keep Cary in. Reassess hematuria. Will reassess hemoglobin. Noted some decreasing hemoglobin down to 8.3 on review. Reviewed platelet level, cell counts, noted mild lymphopenia 0.5. As hematuria subsiding, he is at risk of DVT, for now continue prophylactic heparin, reassess hematuria for resolution, reassess CBC. Reviewed urine culture, noted no growth at 18-24 hours. Likely not cystitis. No urinary symptoms. Discussed with case management. Follow-up with urology after discharge. At risk of anemia, repeat CBC. (2) Falls frequently: Continues to work with physical therapy. Would benefit from rehabilitation, arrangements ongoing for SNF. Pain has been under better control. Continue mobilization. Discussed with case management, still pending authorization to proceed to SNF for rehabilitation. Combination pain control including Tylenol, lidocaine patch. Increase tramadol frequency to every 4 hours as needed. Requiring pain control but is also at risk of delirium. Cautioned him and his regarding adverse effects including constipation, delirium. Avoid NSAIDs. As above PT OT. (3) Multiple fractures of ribs: Related to multiple falls. Fall precautions. Continue to work with PT, OT. Continue arrangements for rehabilitation after discharge. Encouraged incentive spirometer use. Chemistry reviewed, sodium noted 136. Reassess chemistry. Continue pain control for multiple fractures. Falls suspected to be related to neurogenic claudication Possible pathologic/osteoporotic fractures. Will benefit from follow-up for establishing osteoporosis treatment. Recent bone scan suggestive of osteoporosis. We will start Fosamax as outpatient. Patient was previously on bisphosphonates, however discontinued when he started to feel better. Denies any complications with bisphosphonates. (4) Acute anemia: Reviewed hemoglobin, noted 9.3. As he is having hematuria at risk of additional anemia. We will repeat CBC. With known ulcer. Continue PPI. Carafate. Avoid NSAIDs. Status post PRBC transfusion during the course of admission. (5) Duodenal ulcer: discovered on endoscopy currently on protonix and carafate Likely to have been source of GI bleed (FOBT + )and anemia path pending (6) Intractable low back pain: Chronic back pain from vertebral compression fracture, status post vertebroplasty in February 2023, follows with pain management as outpatient with Dr. Velázqeuz. Likely Neurogenic claudication which limits his mobility and causes frequent falls Likely to benefit from skilled therapy ongoing. (7) Delirium: Resolved , likely to have been hospital delirium (8) Urinary retention: Urinary retention today after removing Cary , need to be placed again on 04/28 Hematuria recurred Started Flomax 0.4 mg daily. Plan SLE: resume hydroxychloroquine GERD: PPI DDD OA DVT prophylaxis: SCDs. Add Heparin 5000 q12h now that hematuria resolved and Hb stable Dispo: Would likely benefit from ongoing physical therapy. Appropriate disposition planning is ongoing. Attestations Medical Necessity Statement*: Continue assessment management of hematuria, multiple fractures, optimization of pain control, arrangements for postdischarge rehabilitation. and High MDM includes described risk of complication, morbidity or mortality of management as documented Diagnoses Hematuria R31.9 Falls frequently R29.6 Multiple fractures of ribs S22.49XA Acute anemia D64.9 Duodenal ulcer K26.9 Intractable low back pain M54.59 Delirium R41.0 Urinary retention R33.9
[2023-05-03] MEDS: diphenhydrAMINE 25 mg Capsule PO (22:33)
[2023-05-04 04:00] VITALS: BP 142/79; PULSE 77; RESP 16; TEMP 36.6; O2SAT 94
[2023-05-04] MEDS: duloxetine 30 mg Capsule PO (06:20)
[2023-05-04] MEDS: heparin 5,000 unit/mL INJ 1 mL 5000 UNIT SUBCUT (06:20)
[2023-05-04] MEDS: sucralfate 1 gm Tablet PO (06:20)
[2023-05-04 06:21] LABS: Basophils % 0.3 %; Hematocrit 27.9 % (37-53); Lymphocytes # 0.4 10^3/uL (0.8-4.8); Lymphocytes % 10.7 %; Mean Corpuscular HGB Conc 30.5 g/dL (30-55); Mean Corpuscular Volume 98.6 fl (82-101); Monocytes # 0.8 10^3/uL (0.2-0.9); Monocytes % 19.4 %; Neutrophils # 2.68 10^3/uL (1.8-7.7); Neutrophils % 68.6 %; Nucleated Red Blood Cells % 0 %; Platelet Count 180 10^3/cmm (157-399); Red Blood Count 2.83 10^6/uL (3.85-5.65); Red Cell Distribution Width 15.9 % (12.1-15.1); White Blood Count 3.91 10^3/uL (3.29-11.43)
[2023-05-04 07:15] VITALS: BP 166/79; PULSE 70; RESP 18; TEMP 36.8; O2SAT 94
[2023-05-04] MEDS: pantoprazole DR 40 mg Tablet PO (08:18)
[2023-05-04] MEDS: tamsulosin 0.4 mg Capsule PO (08:18)
[2023-05-04] MEDS: TRAMadol 50 mg Tablet PO (08:18)
[2023-05-04] MEDS: hydroxychloroquine 200 mg Tablet PO (08:18)
[2023-05-04] MEDS: lidocaine 5% Patch 1 PATCH TOPICAL (08:19)
[2023-05-04 10:35] LABS: SARS Covid-2 Antigen negative (Negative)
[2023-05-04 10:56] VITALS: BP 134/74; PULSE 82; RESP 18; TEMP 36.9; O2SAT 90
--- NOTE | 2023-05-04 11:04 | P.DS_ITS ---
Discharge Providers Date of Admission: 04/23/23 08:55 Date of Discharge: May 04, 2023 Attending Provider at Admission: Husam Gonzalez Attending Provider at Discharge: Husam Gonzalez Primary Care Provider: Rukhsana Gutierrez MD Diagnoses at Discharge Discharge Diagnosis (1) Hematuria: Status: Acute (2) Falls frequently: Status: Acute (3) Multiple fractures of ribs: Status: Acute (4) Acute anemia: Status: Acute (5) Duodenal ulcer: Status: Acute (6) Intractable low back pain: Status: Acute (7) Delirium: Status: Acute (8) Urinary retention: Status: Acute Reason for Visit Reason for Visit: SYNCOPE Brief History: Pleasant 87-year-old gentleman with history of SLE, hard of hearing, does not have his hearing aids here with him, was brought in for evaluation due to reported syncopal episodes, previously with fall, vertebral fracture back in February, status post vertebroplasty, in ER again noted to have T12 compression fracture, stable, mild height loss T5-T8, age-indeterminate, but also multiple bilateral rib fractures at various stages of healing, acute lateral right 5-7 fractures, subacute right 2-6 fractures, acute fifth rib fracture as well as subacute 2-7th.? Surgery was contacted and requested for admission with surgery follow-up, ER contacted for admission under hospitalist.? He is maintaining saturation on room air.? Denies shortness of breath.? No chest pain other than some pain in his back on inspiration.? Other incidental findings on CT abdomen pelvis discussed with his family including moderate colonic stool burden, 2.9 cm infrarenal abdominal aortic aneurysm.? In ER he additionally is noted with abnormal UA, more than 100 RBC, 10-15 WBC, 0-4 SEC, 1+ bacteria.? Urinary bladder unremarkable.? Bilateral urinalysis, other subcentimeter hypodensities too small to characterize, 1.6 cm calcified stone in the right renal pelvis.? Ureters normal. Hospital Course Hospital Course He was started on incentive spirometry, pain control including Tylenol, lidocaine patch, opioids for multiple rib fractures, vertebral fractures, started on empiric antibiotic with ceftriaxone for possible UTI, initially somewhat hypotensive, initially started on stress dose steroid, concern for adrenal insufficiency, but with cortisol responding appropriately discontinued. TTE was assessed as well. Showed normal ejection fraction, no diastolic regional wall motion abnormalities. Some incidental finding of cholelithiasis on CT, however, remained asymptomatic, hyperbilirubinemia initially and presentation had resolved. Consider follow-up with surgery for additional assessment. Alk phos elevation thought to more likely related to multiple fractures. No biliary ductal dilation. Was noted to have acute anemia, hemoglobin came down to as low as 6.5, required blood transfusion, treated with IV PPI, with positive Hemoccult, underwent additional assessment by EGD and co lonoscopy with finding of large duodenal ulcer likely source of bleeding. Biopsies were obtained. Sucralfate added. Hemoglobin improved subsequently. Please follow-up. Consider testing for H. pylori. Would avoid NSAIDs. Caution with steroids. Transient delirium in the hospital resolved. He subsequently also developed urinary retention after attempted removal of Cary catheter which had to be replaced. Did have transient hematuria with pulling on the catheter, which had resolved. Started on Flomax. With some recurrence of hematuria which has resolved again, Cary catheter for now is kept in place and he is asked to follow-up with urology. Both initial and repeat urine cultures not suggestive of UTI. So far no evidence of pneumonia, continues to work well with incentive spirometr y. With concern for pathologic/osteoporotic fractures he is started on Prolia after discussion with his , was on Fosamax previously, but with PUD concern for worsening, probably has chosen instead together with calcium and vitamin D. Please follow-up, consider continuation or switch to a different agent as considered appropriate at that time. He otherwise has been quite deconditioned, generally weak, at risk of falls, has been working with therapy. Would benefit from rehabilitation at SNF and this has been arranged. Physical Exam Narrative: Pleasant, conversant. Denies pain or discomfort. No dyspnea. Hematuria resolved. Const: COMMON NORMALS: patient oriented x3 and alert GENERAL APPEARANCE: cooperative ORIENTATION/CONSCIOUSNESS: Yes awake HENMT: COMMON NORMALS: oropharynx normal Neck/C-Spine: COMMON NORMALS: no JVD Resp: COMMON NORMALS: normal respiratory effort and clear to auscultation bilaterally AUSCULTATION: clear to auscultation bilaterally Cardio: COMMON NORMALS: no JVD, regular rhythm, S1 normal heart sound present, S2 normal heart sound present and No murmurs present (Cardio) RHYTHM: regular rhythm HEART SOUNDS: S1 normal heart sound present and S2 normal heart sound present GI: COMMON NORMALS: Normal to inspection, nondistended, normoactive bowel sounds present, Soft to palpation and non-tender PALPATION: Yes Soft to palpation Extremity: COMMON NORMALS: no joint enlargement and no pedal edema Neuro: COMMON NORMALS: patient oriented x3 and moves all extremities SENSORIUM/ORIENTATION: Yes alert Skin: COMMON NORMALS: no rashes or lesions noted GENERAL SKIN EXAM: no rashes or lesions noted Urinary Catheter Management: Cary: Cath Placed During This Visit: yes, but has since been removed by the nurse Reason for Continuing Indwelling Catheter: Acute Urinary Retention or Obstruction Urinary Catheter Date of Insertion: 04/28/23 Urinary Catheter Time of Insertion: 15:00 Date Urinary Catheter Removed: 04/27/23 Time Urinary Catheter Discontinued: 16:00 Discharge Data Studies Completed and Pending Completed Studies During Hospitalization Category Date Time Status CT chest abdomen pelvis [CT chest abdpel w/*[id number] Cat Scan 04/21/23 12:24 Completed ] Stat CT head wo con* [id number] Stat Cat Scan 04/21/23 12:24 Completed XR chest 1V portable [id number] Stat Exams 04/21/23 10:15 Completed Pathology: Surgical [PTH] Routine Pth 04/23/23 16:35 Completed CV. echo complete* [id number] Routine Ultrasound 04/22/23 06:00 Completed Pending at discharge Category Date Time Status Complete Blood Count w/Auto AM LABS Lab 05/05/23 04:00 Ordered Complete Blood Count w/Auto AM LABS Lab 05/06/23 04:00 Ordered Radiology Impressions Chest X-Ray 04/21/23 10:15 IMPRESSION: Multiple mildly displaced right rib fractures, suspect 3rd through 8th ribs, with mild right basilar atelectasis, suggestive of flail chest. Chest/Abdomen/Pelvis CT 04/21/23 12:24 IMPRESSION: 1. Multiple bilateral rib fractures at various stages of healing. Acute fractures involve the right 5th through 7th and left 5th ribs, possibly acute on chronic fractures at the right 6th and 7th ribs. Additional subacute and chronic fracture deformities detailed above. 2. Stable moderate compression of the T12 vertebral body. Mild height loss of the T5 through T8 vertebral bodies, age indeterminate and may be physiologic. 3. No acute pleural or pulmonary findings. IMPRESSION: 1. No acute findings. 2. Moderate colonic stool burden with prominent rectal stool ball. 3. Heavy atherosclerosis with 2.9 cm infrarenal abdominal aortic dilatation. Follow-up imaging in 5 years is recommended. 4. Additional chronic and incidental findings as above, to include cholelithiasis and nonobstructive nephrolithiasis. COMMENTS: Consistent with the [employer] [employer]'s Incidental Findings Committee white paper (J Am Shu Radiol 2018): Any incidental renal lesion less than 1 cm or classified as too small to characterize, or any incidental cystic renal lesion characterized as simple-appearing, is likely benign. No follow-up imaging is recommended for these lesions per consensus recommendations based on imaging criteria. ADDENDUM: 04/21/232025 Impression: 5. 1.6 cm calcified stone in the right renal pelvis without hydronephrosis. THIS REPORT CONTAINS FINDINGS THAT MAY BE CRITICAL TO PATIENT CARE. The findings were verbally communicated via telephone conference with Dr. Gonzalez at 8:24 PM CDT on 04/21/2023. The findings were acknowledged and understood. Head CT 04/21/23 12:24 IMPRESSION: 1. No acute intracranial findings. 2. Chronic sphenoid sinus disease. Laboratory Results WBC 3.91 10^3/uL (3.29-11.43) 05/04/23 06:13 RBC 2.83 10^6/uL (3.85-5.65) L 05/04/23 06:13 Hgb 8.50 g/dL (11.27-16.99) L 05/04/23 06:13 Hct 27.9 % (37-53) L 05/04/23 06:13 MCV 98.6 fl (82-101) 05/04/23 06:13 MCH 30.0 pg (27-33) 05/04/23 06:13 MCHC 30.5 g/dL (30-55) 05/04/23 06:13 RDW 15.9 % (12.1-15.1) H 05/04/23 06:13 Plt Count 180 10^3/cmm (157-399) 05/04/23 06:13 MPV 11.0 fL (7.4-10.4) H 05/04/23 06:13 Neut % (Auto) 68.6 % 05/04/23 06:13 Lymph % (Auto) 10.7 % 05/04/23 06:13 [place] % (Auto) 19.4 % 05/04/23 06:13 Eos % (Auto) 0.0 % 05/04/23 06:13 Baso % (Auto) 0.3 % 05/04/23 06:13 Neut # (Auto) 2.68 10^3/uL (1.8-7.7) 05/04/23 06:13 Lymph # (Auto) 0.4 10^3/uL (0.8-4.8) L 05/04/23 06:13 [place] # (Auto) 0.8 10^3/uL (0.2-0.9) 05/04/23 06:13 Eos # (Auto) 0.0 10^3/uL (0.0-0.8) 05/04/23 06:13 Baso # (Auto) 0.0 10^3/uL (0.0-0.1) 05/04/23 06:13 Nucleated RBC % (auto) 0 % 05/04/23 06:13 Nucleated RBCs # 0.0 /100WBC 05/04/23 06:13 Haptoglobin 189.0 mg/L (30-200) 04/21/23 20:10 Sodium 138 mmol/L (136-145) 05/03/23 06:16 Potassium 4.2 mmol/L (3.5-5.1) 05/03/23 06:16 Chloride 103 mmol/L (98-107) 05/03/23 06:16 Carbon Dioxide 28 mmol/L (22-29) 05/03/23 06:16 Anion Gap 11.2 (5-19) 05/03/23 06:16 BUN 15 mg/dL (8-23) 05/03/23 06:16 Creatinine 0.9 mg/dL (0.7-1.2) 05/03/23 06:16 GFR Calculation Not Reportable 05/03/23 06:16 Glucose 101 mg/dL (65-115) 05/03/23 06:16 POC Glucose 155 mg/dL (70-110) H 04/21/23 21:20 Calculated Osmolality 287 mOsm/kg (285-295) 05/03/23 06:16 Lactic Acid 1.7 mmol/L (0.5-2.2) 04/21/23 11:19 Calcium 8.6 mg/dL (8.5-10.5) 05/03/23 06:16 Phosphorus 2.2 mg/dL (2.5-4.5) L 04/24/23 03:53 Magnesium 2.3 mg/dL (1.7-2.3) 04/24/23 03:53 Iron 93 ug/dL (59-158) 04/22/23 03:20 TIBC 121 mcg/dl 04/22/23 03:20 % Saturation 76.8 % (20-50) H 04/22/23 03:20 Unsat Iron Binding 28 ug/dL (112-347) L 04/22/23 03:20 Ferritin 2211 ng/mL (30-400) H 04/22/23 03:20 Total Bilirubin 0.6 mg/dL (0.15-1.2) 05/03/23 06:16 AST 22 U/L (0-40) 05/03/23 06:16 ALT 29 U/L (0-41) 05/03/23 06:16 Alkaline Phosphatase 196 U/L (40-130) H 05/03/23 06:16 Troponin T Baseline 34 ng/L (0-15) H 04/21/23 09:45 Troponin T 120 Minute 35.52 ng/L (0-15) H 04/21/23 12:20 Delta Troponin T 1.52 ABS# (0-10) 04/21/23 12:20 Troponin T Hi Sens 6Hr 39.58 ng/L (0-15) H 04/21/23 16:13 Troponin T Hi Sens 6Hr Delta 5.58 ng/L (0-12) 04/21/23 16:13 C-Reactive Protein 29.7 mg/L (0.0-4.9) H 04/21/23 09:45 NT-Pro-B Natriuret Pep 1743 pg/mL (0-450) H 04/21/23 09:45 Total Protein 4.9 g/dL (6.6-8.7) L 05/03/23 06:16 Albumin 2.8 g/dL (3.5-5.2) L 05/03/23 06:16 Globulin 2.1 g/dL (1.3-4.6) 05/03/23 06:16 Random Cortisol 28.27 ug/dL (2.47-19.5) H 04/21/23 20:10 Urine Color Red (Yellow) A 05/02/23 10:10 Urine Appearance Cloudy (CLEAR) A 05/02/23 10:10 Urine pH 9 (5-7) H 05/02/23 10:10 Ur Specific [place] 1.010 (1.005-1.030) 05/02/23 10:10 Urine Protein 1+ (Negative) H 05/02/23 10:10 Urine Glucose (UA) Norm (Normal) 05/02/23 10:10 Urine Ketones Negative (Negative) 05/02/23 10:10 Urine Blood 3+ (Negative) H 05/02/23 10:10 Urine Nitrate Negative (Negative) 05/02/23 10:10 Urine Bilirubin Neg (Negative) 05/02/23 10:10 Urine Urobilinogen Norm mg/dL (Negative) 05/02/23 10:10 Ur Leukocyte Esterase 1+ (Negative) H 05/02/23 10:10 Urine RBC Too numerous to cnt /hpf (0-2) H 05/02/23 10:10 Urine WBC 5-10 /hpf (0-5) H 05/02/23 10:10 Ur Squamous Epith Cells 0-4 /hpf (0-5) H 05/02/23 10:10 Amorphous Sediment Not Reportable 05/02/23 10:10 Urine Bacteria Trace /hpf (NONE) 05/02/23 10:10 Coronavirus 229E (PCR) Not detected (NOT DETECT) 04/21/23 11:00 SARS-CoV-2 (PCR) Not detected (NOT DETECT) 04/21/23 11:00 SARS-CoV-2 Ag (Rapid) negative (Negative) 05/04/23 10:07 Blood Type O Positive 04/21/23 22:25 Rho(D) Type Positive 04/21/23 22:25 Antibody Screen Negative 04/21/23 22:25 Crossmatch See Detail 04/21/23 22:25 Vitals Last Vital Signs Temp 98.5 F 05/04/23 10:56 Pulse 82 05/04/23 10:56 Resp 18 05/04/23 10:56 BP 134/74 05/04/23 10:56 Pulse Ox 90 05/04/23 10:56 O2 Del Method Room Air 05/04/23 10:56 O2 Flow Rate 2 05/03/23 08:00 Discharge Plan Discharge Patient Disposition: Xfer [facility] Condition: Stable Prescriptions: New capsaicin 0.025 % Cream 1 applic topical QID PRN (Reason: Pain) Qty: 60 0RF pantoprazole 40 mg Tablet,Delayed Release (Dr/Ec) 40 mg PO BID 42 Days Qty: 84 0RF lidocaine 5 % Adhesive Patch,Medicated 1 patch topical [id number] Qty: 30 0RF sucralfate 1 gram Tablet 1 g PO BIDAC 28 Days Qty: 28 0RF tamsulosin 0.4 mg Capsule 0.4 mg PO DAILY Qty: 90 0RF denosumab 120 mg/1.7 mL (70 mg/mL) solution 60 mg SUBCUT Q6M 2 Days Qty: 1.7 0RF Calcium 500 500 mg calcium (1,250 mg) tablet,chewable 1,000 mg PO DAILY Qty: 60 0RF Continued cholecalciferol (vitamin D3) 50 mcg (2,000 unit) capsule 50 mcg PO QAM acetaminophen [Tylenol 8 Hour] 650 mg tablet extended release 1,300 mg PO Q8H hydroxychloroquine [Plaquenil] 200 mg tablet 200 mg PO BID Qty: 60 4RF multivitamin Tablet 1 tab PO EVERY OTHER DAY docusate sodium [Colace] 100 mg Capsule 100 mg PO DAILY PRN (Reason: Constipation) Cymbalta 30 mg capsule,delayed release(DR/EC) 30 mg PO QAM Changed hydrocodone-acetaminophen 5-325 mg tablet 1 - 2 tab PO .EVERY 4-6 HOURS PRN (Reason: Pain) Qty: 15 0RF Discontinued naproxen sodium [Aleve] 220 mg Tablet 220 mg PO BID Discharge Orders: Discharge Order (Routine); Ordered 05/04/23 Ordered By: Husam Gonzalez Referrals: SNF, PCP [Other] - 4-7 days [facility] [Provider Group] - 1 week (We have notified your physician's clinic of the need for a follow-up appointment to be scheduled. If you have not heard from them within the next 2 business days, please call them directly. You may also reach out to our field service manager at [phone] and she can assist you.) [facility] [Outside] Cody Carpenter DO [Physician] - 2 weeks (We have notified your physician's clinic of the need for a follow-up appointment to be scheduled. If you have not heard from them within the next 2 business days, please call them directly. You may also reach out to our field service manager at [phone] and she can assist you.) Rukhsana Gutierrez MD [Primary Care Provider] - Discharge Diet: GI Soft Discharge Activity: As per PT/OT instructions Patient Instructions: Lidocaine (On the skin), Tramadol (By mouth), Tamsulosin (By mouth), Cary Catheter Care, How to Use an Incentive Spirometer (GEN), Peptic Ulcer (GEN), Urinary Retention in Men (GEN), Anemia (GEN), Back Pain (GEN), Fall Prevention (GEN), Urinary Leg Bag (GEN), GI Discharge Instructions, Opioid Safety, Fractures - Rib Activity Restrictions/Additional Instructions: Continue incentive spirometer to help prevent pneumonia with multiple rib fractures. Continue lidocaine patch, Tylenol, hydrocodone as needed. Avoid any NSAIDs. Continue acid lobo medications with Protonix, sucralfate, follow-up with your primary provider for reassessment. Consider testing for H. pylori. follow-up with surgery. Due to recent hematuria, pulling on Cary catheter, for now keep Cary in place, follow-up with urology for reassessment of urinary retention and Cary removal. Continue Flomax. Have your primary provider follow-up your kidney function, as well as follow-up anemia. Maintain strict fall precautions. Use your walker at all times. At the current time get up only with assistance until cleared to get up independently. Follow-up with your primary doctor for continued assessment and management of osteoporosis, suspected pathologic fractures. Discussed start of Prolia and continuation and monitoring, with concomitant calcium and vitamin D supplementation. Monitoring for any adverse effects as discussed Continue follow-up with pain management as well as your primary doctor for continued assessment treatment of back pain, neurogenic claudication. Discharge Attestations Time Spent in Discharge Care*: greater than 30 min Quality Metrics Clinical Quality Measures [ No reported AMI, CVA or VTE this stay] Coding Level of Care Code 63392 Total time (in minutes) for Discharge: 35 Diagnoses Hematuria R31.9 Falls frequently R29.6 Multiple fractures of ribs S22.49XA Acute anemia D64.9 Duodenal ulcer K26.9 Intractable low back pain M54.59 Delirium R41.0 Urinary retention R33.9
--- NOTE | 2023-05-04 12:31 | PC.SOCIAL ---
IMM Updated Updated pt & his on IMM. No questions voiced. Provided pt a copy. Initialed, dated, & timed copy in chart.
[2023-05-04 12:47] VITALS: BP 134/74; PULSE 82; RESP 18; TEMP 36.9; O2SAT 90
== END 2023-05-04 12:48 | disposition skilled nursing facility (03) | DRG 183 ==
LOC: ER 16:02 → ICU 16:25 → MEDSURG 04-24 20:08
PROVIDERS: Hospitalist; Internal Medicine; Student in an Organized Health Care Education/Training Program; Surgery; Admitting Provider Internal Medicine; Emergency Provider Emergency Medicine; PCP Family Medicine; Visit Provider Internal Medicine
PROC: 0DJ08ZZ Inspection of Upper Intestinal Tract, Via Natural or Artificial Opening Endoscopic (ICD-10-PCS; CPT 43235; principal; 2023-04-23 11:45)
PROC: 0DJD8ZZ Inspection of Lower Intestinal Tract, Via Natural or Artificial Opening Endoscopic (ICD-10-PCS; CPT 45330; 2023-04-23 11:45)
DX: S22.41XA Multiple fractures of ribs, right side, initial encounter for closed fracture (principal); K26.4 Chronic or unspecified duodenal ulcer with hemorrhage; F05 Delirium due to known physiological condition; S22.088A Other fracture of T11-T12 vertebra, initial encounter for closed fracture; K29.70 Gastritis, unspecified, without bleeding; M32.9 Systemic lupus erythematosus, unspecified; W18.30XA Fall on same level, unspecified, initial encounter; I95.9 Hypotension, unspecified; K80.20 Calculus of gallbladder without cholecystitis without obstruction; D64.9 Anemia, unspecified; R33.9 Retention of urine, unspecified; N20.0 Calculus of kidney; K59.03 Drug induced constipation; T40.2X5A Adverse effect of other opioids, initial encounter; E87.6 Hypokalemia; K22.2 Esophageal obstruction; R31.9 Hematuria, unspecified; L89.159 Pressure ulcer of sacral region, unspecified stage; I71.40 Abdominal aortic aneurysm, without rupture, unspecified; G89.29 Other chronic pain; M54.50 Low back pain, unspecified; Z96.82 Presence of neurostimulator; Z96.653 Presence of artificial knee joint, bilateral; K21.9 Gastro-esophageal reflux disease without esophagitis
CPT/HCPCS: 36415; 36416; 36430; 43239; 45330; 51702; 51798; 70450; 71045; 71260; 74177; 80053; 81001; 82274; 82533; 82728; 82962; 83010; 83540; 83550; 83605; 83735; 83880; 84100; 84484; 85014; 85018; 85025; 86140; 86850; 86900; 86920; 87040; 87086; 87426; 87635; 88305; 88342; 93005; 93306; 96372; 96374; 96376; 97110; 97116; 97161; 97167; 97530; 97535; 99285; C9113; G0378; J0696; J1170; J1644; J1720; J1940; J2270; J2704; J3010; J3480; J7030; P9016; Q9967

== ENCOUNTER → 2023-05-15 10:36 | Outpatient (BNVA) | payer MEDICARE, SELFPAY | PROVIDERS: PCP Family Medicine; Visit Provider Surgery | DX: Z09 Encounter for follow-up examination after completed treatment for conditions other than malignant neoplasm (principal) | CPT/HCPCS: 99203; 99213 ==

== ENCOUNTER 2023-06-05 15:48 | Emergency (ER) | payer MEDICARE, SELFPAY ==
[2023-06-05 16:30] LABS: Basophils % 0.4 %; Hematocrit 29.6 % (37-53); Lymphocytes # 0.5 10^3/uL (0.8-4.8); Lymphocytes % 4.5 %; Mean Corpuscular HGB Conc 31.1 g/dL (30-55); Mean Corpuscular Hemoglobin 29.6 pg (27-33); Mean Corpuscular Volume 95.2 fl (82-101); Monocytes # 1.2 10^3/uL (0.2-0.9); Monocytes % 11.3 %; Neutrophils # 8.68 10^3/uL (1.8-7.7); Neutrophils % 82.9 %; Nucleated Red Blood Cells % 0 %; Platelet Count 237 10^3/cmm (157-399); Red Blood Count 3.11 10^6/uL (3.85-5.65); Red Cell Distribution Width 15.6 % (12.1-15.1); White Blood Count 10.46 10^3/uL (3.29-11.43)
[2023-06-05 16:38] VITALS: BP 149/79; PULSE 92; RESP 17; O2SAT 97
--- NOTE | 2023-06-05 16:49 | ED_ITS ---
HPI - Male Genitourinary General: Chief complaint: Urogenital-Male Stated complaint: Cath problem Time Seen by Provider: 06/05/23 15:51 Source: patient Mode of arrival: EMS History of Present Illness: 79-year-old male presents to the emergency room with complaints of hematuria. He said the hematuria for several weeks now he had fallen and had some compression fractures in his back Cary was placed because he is unable to urin ate he states the blood in the urine has been present for at least a week or more. He recently transfer from the correction to another. Horcu Cary was initially placed due to urinary retention. Interestingly there is a note from his primary care doctor from 928 there is no mention of hematuria although the states has been present for more than a week. When he arrived here he had very significant gross hematuria. Nursing staff irrigated and were able to get a large amount of clots and then it resolves and just had some light pink-tinged irrigation fluid returning. He is not on any anticoagulants. Onset (ago): week(s) (1 per family) Duration: constant Relieving factors: none Exacerbating factors: none Associated symptoms: Reports hematuria; Deny discharge, dysuria, fevers/chills, nausea, rash, swelling, urinary incontinence, urinary retention, mass or vomiting Review of Systems Const: Denies: fever(s), chills, fatigue or malaise Card: Denies: chest pain, edema, dyspnea on exertion or orthopnea Resp: Denies: dyspnea, productive cough or non-productive cough GI: Denies: nausea or vomiting : Reports: difficulty urinating and hematuria; Denies: dysuria, urinary frequency, urinary urgency or urinary incontinence Skin/Breast: Denies: rash or pruritus PFSH ED PFSH: Medical History Constipation due to opioid therapy DDD (degenerative disc disease) Decubitus ulcer of coccyx GERD (gastroesophageal reflux disease) History of pancreatitis History of prostate cancer Osteoarthritis Osteoporosis Systemic lupus erythematosus Surgical History History of bilateral carpal tunnel release History of hand surgery left trigger finger History of lumbar surgery History of open reduction and internal fixation (ORIF) procedure r femur History of open reduction and internal fixation (ORIF) procedure r elbow History of repair of right rotator cuff History of total bilateral knee replacement Status post insertion of spinal cord stimulator Family History Mother Dementia Father Rheumatoid arthritis Social History Smoking and tobacco status: never smoked Alcohol intake: current Alcohol intake frequency: holidays/special occasions only Substance/Drug Use: never Lives independently: Yes Household members: spouse Marital status: Number of children: 2 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 Physical Exam Const: GENERAL APPEARANCE: cooperative and comfortable ORIENTATION/CONSCIOUSNESS: Yes awake, Yes oriented to person, Yes oriented to place and Yes oriented to time HENMT: COMMON NORMALS: normocephalic, atraumatic and hearing grossly normal bilaterally HEAD & SCALP: normocephalic and atraumatic Resp: COMMON NORMALS: normal respiratory effort, No retractions, No use of accessory muscles and clear to auscultation bilaterally AUSCULTATION: clear to auscultation bilaterally Cardio: COMMON NORMALS: regular rate, regular rhythm and No murmurs present (Cardio) RATE: regular rate RHYTHM: regular rhythm GI: COMMON NORMALS: Soft to palpation and No hepatosplenomegaly present AUSCULTATION: Yes normoactive bowel sounds PALPATION: Yes Soft to palpation, No Tenderness to palpation present (GI), No Guarding due to palpation present (GI) and Yes No hepatosplenomegaly present Extremity: COMMON NORMALS: normal to inspection, capillary refill normal, no clubbing, cyanosis or edema, no calf tenderness and no pedal edema Neuro: SENSORIUM/ORIENTATION: Yes oriented to person, Yes oriented to place and Yes oriented to time Skin: COMMON NORMALS: no rashes or lesions noted GENERAL SKIN EXAM: no rashes or lesions noted Course Vital Signs: Vital signs: Vital Signs Pulse Rate 92 06/05/23 16:38 Respiratory Rate 17 06/05/23 16:38 Blood Pressure 149/79 06/05/23 16:38 Pulse Oximetry 97 06/05/23 16:38 Oxygen Delivery Me thod Room Air 06/05/23 16:38 MDM - Male Medical Decision Making Resolved with irrigation. Will discharge back to the correction continue to observe needs follow-up with urology.Urine culture pending Medical Records I reviewed the patient's medical records. Lab Data I reviewed the patient's lab results. 06/05/23 16:20 06/05/23 16:20 Laboratory Results WBC 10.46 10^3/uL (3.29-11.43) 06/05/23 16:20 RBC 3.11 10^6/uL (3.85-5.65) L 06/05/23 16:20 Hgb 9.20 g/dL (11.27-16.99) L 06/05/23 16:20 Hct 29.6 % (37-53) L 06/05/23 16:20 MCV 95.2 fl (82-101) 06/05/23 16:20 MCH 29.6 pg (27-33) 06/05/23 16:20 MCHC 31.1 g/dL (30-55) 06/05/23 16:20 RDW 15.6 % (12.1-15.1) H 06/05/23 16:20 Plt Count 237 10^3/cmm (157-399) 06/05/23 16:20 MPV 11.0 fL (7.4-10.4) H 06/05/23 16:20 Neut % (Auto) 82.9 % 06/05/23 16:20 Lymph % (Auto) 4.5 % 06/05/23 16:20 [place] % (Auto) 11.3 % 06/05/23 16:20 Eos % (Auto) 0.0 % 06/05/23 16:20 Baso % (Auto) 0.4 % 06/05/23 16:20 Neut # (Auto) 8.68 10^3/uL (1.8-7.7) H 06/05/23 16:20 Lymph # (Auto) 0.5 10^3/uL (0.8-4.8) L 06/05/23 16:20 [place] # (Auto) 1.2 10^3/uL (0.2-0.9) H 06/05/23 16:20 Eos # (Auto) 0.0 10^3/uL (0.0-0.8) 06/05/23 16:20 Baso # (Auto) 0.0 10^3/uL (0.0-0.1) 06/05/23 16:20 Nucleated RBC % (auto) 0 % 06/05/23 16:20 Nucleated RBCs # 0.0 /100WBC 06/05/23 16:20 Sodium 140 mmol/L (136-145) 06/05/23 16:20 Potassium 4.1 mmol/L (3.5-5.1) 06/05/23 16:20 Chloride 102 mmol/L (98-107) 06/05/23 16:20 Carbon Dioxide 27 mmol/L (22-29) 06/05/23 16:20 Anion Gap 15.1 (5-19) 06/05/23 16:20 BUN 21 mg/dL (8-23) 06/05/23 16:20 Creatinine 1.4 mg/dL (0.7-1.2) H 06/05/23 16:20 GFR Calculation Not Reportable 06/05/23 16:20 Glucose 156 mg/dL (65-115) H 06/05/23 16:20 Calculated Osmolality 296 mOsm/kg (285-295) H 06/05/23 16:20 Calcium 8.7 mg/dL (8.5-10.5) 06/05/23 16:20 No radiology studies performed this visit Discharge Plan Discharge Patient Disposition: Home Clinical Impression: Hematuria Condition: Stable Prescriptions: No Action cholecalciferol (vitamin D3) 50 mcg (2,000 unit) capsule 50 mcg PO QAM acetaminophen [Tylenol 8 Hour] 650 mg tablet extended release 1,300 mg PO Q8H (DME) miscellaneous medical supply Misc See Rx Instructions .Route Qty: 1 0RF Rx Instructions: hospital bed hydroxychloroquine [Plaquenil] 200 mg tablet 200 mg PO BID Qty: 60 4RF (DME) Electric Bed See Rx Instructions .Route .MEDSUPPLY Qty: 1 0RF Rx Instructions: As directed multivitamin Tablet 1 tab PO EVERY OTHER DAY docusate sodium [Colace] 100 mg Capsule 100 mg PO DAILY PRN (Reason: Constipation) Cymbalta 30 mg capsule,delayed release(DR/EC) 30 mg PO QAM capsaicin 0.025 % Cream 1 applic topical QID PRN (Reason: Pain) Qty: 60 0RF pantoprazole 40 mg Tablet,Delayed Release (Dr/Ec) 40 mg PO BID 42 Days Qty: 84 0RF lidocaine 5 % Adhesive Patch,Medicated 1 patch topical [id number] Qty: 30 0RF tamsulosin 0.4 mg Capsule 0.4 mg PO DAILY Qty: 90 0RF Calcium 500 500 mg calcium (1,250 mg) tablet,chewable 1,000 mg PO DAILY Qty: 60 0RF Discharge Orders: Discharge ED (Routine); Ordered 06/05/23 Ordered By: Mack Kelley Referrals: Rukhsana Gutierrez MD [Primary Care Provider] - Discharge Diet: Usual diet Discharge Activity: Resume usual activity Patient Instructions: Opioid Safety, Pain Management Activity Restrictions/Additional Instructions: Follow-up with your primary care physician for possible referral to ENT for further evaluation for the hematuria. Recheck CBC and BMP in 2 days at the correction. Coding Level of Care Code ED Blockmason for Felicity Orozco
[2023-06-05 16:54] LABS: Anion Gap 15.1 (5-19); Blood Urea Nitrogen 21 mg/dL (8-23); Calcium 8.7 mg/dL (8.5-10.5); Carbon Dioxide 27 mmol/L (22-29); Chloride 102 mmol/L (98-107); Glucose 156 mg/dL (65-115); Osmolality Calculated 296 mOsm/kg (285-295); Potassium 4.1 mmol/L (3.5-5.1); Sodium 140 mmol/L (136-145)
== END 2023-06-05 17:37 | disposition home or self-care (01) ==
PROVIDERS: Emergency Provider Family Medicine; PCP Family Medicine
DX: R31.9 Hematuria, unspecified (principal); Z85.46 Personal history of malignant neoplasm of prostate; M32.9 Systemic lupus erythematosus, unspecified
CPT/HCPCS: 36415; 51702; 80048; 85025; 99283

== ENCOUNTER 2023-06-23 10:53 | Emergency (ER) | payer MEDICARE, SELFPAY ==
[2023-06-23] VITALS (18 sets, daily range): BP systolic 101–166; BP diastolic 59–80; PULSE 74–96; RESP 14–29; TEMP 36.5–37.1; O2SAT 95–100; BMI 25.7
--- NOTE | 2023-06-23 11:06 | XRR_ITS ---
PROCEDURE INFORMATION: Exam: XR Chest Exam date and time: 06/23/2023 11:16 AM Age: 88 years old Clinical indication: Other: Dizziness; Weakness TECHNIQUE: Imaging protocol: Radiologic exam of the chest. Views: 1 view. COMPARISON: CT chest abdpel w/*[id number] 04/21/2023 1:19 PM FINDINGS: Lungs: Scarring in both lung bases. Pleural spaces: Unremarkable. No pleural effusion. No pneumothorax. Heart/Mediastinum: Unremarkable. No cardiomegaly. Vasculature: Tortuous thoracic aorta. Bones/joints: Unremarkable. XR/XR chest 1V portable [id number] IMPRESSION: Scarring in both lung bases. No acute process
--- NOTE | 2023-06-23 11:08 | ECG_ITS ---
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 Measurements Intervals [employer] Rate: 88 P: 44 [place]: 214 QRS: 19 QRSD: 96 T: -15 QT: 348 QTc: 423 Interpretive Statements SINUS RHYTHM WITH FIRST DEGREE AV BLOCK NONSPECIFIC T-WAVE ABNORMALITY Compared to ECG 04/21/2023 16:28:12 First degree AV block now present T-wave abnormality still present Electronically Signed On 06-24-2023 10:57:59 CDT by Kavita Holliday M.D. [id number]
--- NOTE | 2023-06-23 11:13 | W.ED.DIZZY ---
HPI - Dizziness General: Chief Complaint: Dizziness Stated Complaint: DIZZINESS; BLOOD IN CATH Time Seen by Provider: 06/23/23 11:05 History of Present Illness: HPI Narrative: Patient presents to the ER with complaints of dizziness that is intermittent for quite a while. Patient's also had a catheter in place approximately since the beginning of this month possibly placed in this ER or hospital. He has had blood in his urine ever since then. Patient has had to have at least 1 transfusion due to low hemoglobin. Patient is not on any type of anticoagulation. Patient does have a history of prostate cancer. Patient has seen a urologist in [place] and think his prostate cancer may be returning. Patient is bedbound secondary to generalized weakness. Patient has chronic low back pain and has had multiple surgeries on his back by Dr. Rodriguez and the pain management doc. Patient is feeling good right now other than low back pain. Review of Systems General: Reports: 10 or more systems reviewed and unremarkable except in HPI and below PFSH ED PFSH: Medical History Constipation due to opioid therapy DDD (degenerative disc disease) Decubitus ulcer of coccyx GERD (gastroesophageal reflux disease) History of pancreatitis History of prostate cancer Osteoarthritis Osteoporosis Systemic lupus erythematosus Surgical History History of bilateral carpal tunnel release History of hand surgery left trigger finger History of lumbar surgery History of open reduction and internal fixation (ORIF) procedure r femur History of open reduction and internal fixation (ORIF) procedure r elbow History of repair of right rotator cuff History of total bilateral knee replacement Status post insertion of spinal cord stimulator Family History Mother Dementia Father Rheumatoid arthritis Social History Smoking and tobacco/nicotine status: never used tobacco/nicotine Alcohol intake: current Alcohol intake frequency: holidays/special occasions only Substance/Drug Use: never Lives independently: Yes Household members: spouse Marital status: Number of children: 2 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 Physical Exam Const: COMMON NORMALS: no acute distress, average body habitus, patient oriented x3, no limitations, healthy appearing, alert and well nourished HENMT: COMMON NORMALS: normocephalic, atraumatic, hearing grossly normal bilaterally, external ears normal, Normal external nose present, moist oral mucous membranes and oropharynx normal HEAD & SCALP: normocephalic and atraumatic NOSE: Normal external nose present EXTERNAL EAR: Yes external ears normal Neck/C-Spine: COMMON NORMALS: full ROM, no lymphadenopathy, supple, no meningeal signs, no JVD and Thyroid normal THYROID: Thyroid normal Chest: COMMONS NORMALS: normal inspection of the chest and normal palpation of entire chest wall Resp: COMMON NORMALS: normal respiratory effort, No retractions, No use of accessory muscles and clear to auscultation bilaterally AUSCULTATION: clear to auscultation bilaterally Cardio: COMMON NORMALS: no JVD, regular rate, regular rhythm, S1 normal heart sound present, S2 normal heart sound present, No gallops present (Cardio), No clicks present (Cardio), No murmurs present (Cardio) and No rub (Cardio) RATE: regular rate RHYTHM: regular rhythm HEART SOUNDS: S1 normal heart sound present and S2 normal heart sound present GI: COMMON NORMALS: Normal to inspection, nondistended, normoactive bowel sounds present, Soft to palpation, non-tender, No hepatosplenomegaly present and no masses PALPATION: Yes Soft to palpation and Yes No hepatosplenomegaly present : COMMON NORMALS: Yes no CVA tenderness BLADDER/KIDNEY EXAM: Yes no CVA tenderness OTHER: Urinary catheter in place with sri blood in catheter. Back/Pelvis: COMMON NORMALS: no CVA tenderness Neuro: COMMON NORMALS: patient oriented x3 SENSORIUM/ORIENTATION: Yes alert MENINGEAL SIGNS: Yes no meningeal signs Course Vital Signs: Vital signs: Vital Signs Temperature 97.9 F 06/23/23 13:33 Pulse Rate 82 06/23/23 13:33 Respiratory Rate 24 H 06/23/23 13:33 Blood Pressure 112/59 06/23/23 13:33 Pulse Oximetry 97 06/23/23 13:33 Oxygen Delivery Me thod Room Air 06/23/23 10:54 [facility] - Dizziness Medical Decision Making Talk with Dr. Carbajal and he thinks patient should be transferred secondary to no urology here if patient needs CBI and/or cystoscopy secondary to gross hematuria and a catheter in place. Differential Diagnosis Unlikely adverse reaction to drug, benign paroxysmal positional vertigo, orthostatic hypotension, vertebral basilar insufficiency, cerebrovascular accident, acute vestibular neuronitis or transient cerebral ischemia Medical Records I reviewed the patient's medical records. Lab Data I reviewed the patient's lab results. 06/23/23 10:40 06/23/23 10:40 Radiology Impressions Chest X-Ray 06/23/23 11:06 IMPRESSION: Scarring in both lung bases. No acute process Laboratory Results WBC 4.88 10^3/uL (3.29-11.43) 06/23/23 10:40 RBC 1.94 10^6/uL (3.85-5.65) L 06/23/23 10:40 Hgb 5.60 g/dL (11.27-16.99) L* 06/23/23 10:40 Hct 18.7 % (37-53) L* 06/23/23 10:40 MCV 96.4 fl (82-101) 06/23/23 10:40 MCH 28.9 pg (27-33) 06/23/23 10:40 MCHC 29.9 g/dL (30-55) L 06/23/23 10:40 RDW 18.1 % (12.1-15.1) H 06/23/23 10:40 Plt Count 269 10^3/cmm (157-399) 06/23/23 10:40 MPV 11.3 fL (7.4-10.4) H 06/23/23 10:40 Neut % (Auto) 80.1 % 06/23/23 10:40 Lymph % (Auto) 7.8 % 06/23/23 10:40 [place] % (Auto) 11.1 % 06/23/23 10:40 Eos % (Auto) 0.0 % 06/23/23 10:40 Baso % (Auto) 0.2 % 06/23/23 10:40 Neut # (Auto) 3.91 10^3/uL (1.8-7.7) 06/23/23 10:40 Lymph # (Auto) 0.4 10^3/uL (0.8-4.8) L 06/23/23 10:40 [place] # (Auto) 0.5 10^3/uL (0.2-0.9) 06/23/23 10:40 Eos # (Auto) 0.0 10^3/uL (0.0-0.8) 06/23/23 10:40 Baso # (Auto) 0.0 10^3/uL (0.0-0.1) 06/23/23 10:40 Nucleated RBC % (auto) 0 % 06/23/23 10:40 Nucleated RBCs # 0.0 /100WBC 06/23/23 10:40 PT 14.60 SECONDS (12.1-14.9) 06/23/23 11:41 INR 1.10 (0.8-1.2) 06/23/23 11:41 Sodium 136 mmol/L (136-145) 06/23/23 10:40 Potassium 4.5 mmol/L (3.5-5.1) 06/23/23 10:40 Chloride 99 mmol/L (98-107) 06/23/23 10:40 Carbon Dioxide 27 mmol/L (22-29) 06/23/23 10:40 Anion Gap 14.5 (5-19) 06/23/23 10:40 BUN 17 mg/dL (8-23) 06/23/23 10:40 Creatinine 1.4 mg/dL (0.7-1.2) H 06/23/23 10:40 GFR Calculation Not Reportable 06/23/23 10:40 Glucose 161 mg/dL (65-115) H 06/23/23 10:40 Calculated Osmolality 287 mOsm/kg (285-295) 06/23/23 10:40 Calcium 8.5 mg/dL (8.5-10.5) 06/23/23 10:40 Magnesium 2.1 mg/dL (1.7-2.3) 06/23/23 10:40 Total Bilirubin 0.4 mg/dL (0.15-1.2) 06/23/23 10:40 AST 14 U/L (0-40) 06/23/23 10:40 ALT 10 U/L (0-41) 06/23/23 10:40 Alkaline Phosphatase 210 U/L (40-130) H 06/23/23 10:40 Total Protein 5.3 g/dL (6.6-8.7) L 06/23/23 10:40 Albumin 3.1 g/dL (3.5-5.2) L 06/23/23 10:40 Globulin 2.2 g/dL (1.3-4.6) 06/23/23 10:40 Prostate Specific Ag 0.072 ng/mL (0-4) 06/23/23 10:40 Blood Type O Positive 06/23/23 11:41 Rho(D) Type Positive 06/23/23 11:41 Antibody Screen Negative 06/23/23 11:41 Crossmatch See Detail 06/23/23 11:41 All radiology interpretation(s) finalized by discharge EKG Data EKG 1: I personally reviewed and interpreted this EKG as follows: EKG interpretation date: 06/23/23 EKG interpretation time: 11:08 Prior EKG tracings: not available for review Interpretation: EKG showed ventricular rate 88 bpm, MT interval 214, QRS duration 96, QTc of 394, sinus rhythm with first-degree AV block, nonspecific T wave abnormality Discharge Plan Discharge Patient Disposition: Home Clinical Impression: Anemia requiring transfusions Condition: Stable Prescriptions: No Action acetaminophen [Tylenol 8 Hour] 650 mg tablet extended release 1,300 mg PO Q8H (DME) miscellaneous medical supply Misc See Rx Instructions .Route Qty: 1 0RF Rx Instructions: hospital bed hydroxychloroquine [Plaquenil] 200 mg tablet 200 mg PO BID Qty: 60 4RF (DME) Electric Bed See Rx Instructions .Route .MEDSUPPLY Qty: 1 0RF Rx Instructions: As directed multivitamin Tablet 1 tab PO EVERY OTHER DAY leflunomide 20 mg tablet 20 mg PO QAM tramadol 50 mg tablet 50 mg PO BID PRN (Reason: Pain) prednisone 2.5 mg tablet 2.5 mg PO QAM pantoprazole 40 mg tablet,delayed release (DR/EC) 40 mg PO QAM FeroSul 325 mg (65 mg iron) tablet 325 mg PO QAM hyoscyamine sulfate 0.125 mg tablet, sublingual 0.125 mg PO QID folic acid 1 mg tablet 1 mg PO QAM metoprolol tartrate 25 mg tablet 12.5 mg PO BID duloxetine [Cymbalta] 30 mg capsule,delayed release(DR/EC) 30 mg PO QAM lidocaine 5 % Adhesive Patch,Medicated 1 patch topical [id number] Qty: 30 0RF tamsulosin 0.4 mg Capsule 0.4 mg PO DAILY Qty: 90 0RF Discharge Orders: Discharge ED (Routine); Ordered 06/23/23 Ordered By: Jude Olguin Referrals: Rukhsana Gutierrez MD [Primary Care Provider] - 1 week Patient Instructions: Blood Transfusion Activity Restrictions/Additional Instructions: Please follow-up with your family practice doc in the next 7 to 10 days for recheck of your hemoglobin and hematocrit. Coding Level of Care Code ED Conference Organizer for Felicity Orozco
[2023-06-23 11:19] LABS: Basophils % 0.2 %; Lymphocytes # 0.4 10^3/uL (0.8-4.8); Lymphocytes % 7.8 %; Mean Corpuscular HGB Conc 29.9 g/dL (30-55); Mean Corpuscular Hemoglobin 28.9 pg (27-33); Mean Corpuscular Volume 96.4 fl (82-101); Mean Platelet Volume 11.3 fL (7.4-10.4); Monocytes # 0.5 10^3/uL (0.2-0.9); Monocytes % 11.1 %; Neutrophils # 3.91 10^3/uL (1.8-7.7); Neutrophils % 80.1 %; Nucleated Red Blood Cells % 0 %; Platelet Count 269 10^3/cmm (157-399); Red Blood Count 1.94 10^6/uL (3.85-5.65); Red Cell Distribution Width 18.1 % (12.1-15.1); White Blood Count 4.88 10^3/uL (3.29-11.43)
[2023-06-23 11:23] LABS: Hematocrit 18.7 % (37-53)
[2023-06-23 11:32] LABS: Alanine Aminotransferase 10 U/L (0-41); Albumin Level 3.1 g/dL (3.5-5.2); Alkaline Phosphatase 210 U/L (40-130); Aspartate Amino Transferase 14 U/L (0-40); Blood Urea Nitrogen 17 mg/dL (8-23); Calcium 8.5 mg/dL (8.5-10.5); Carbon Dioxide 27 mmol/L (22-29); Chloride 99 mmol/L (98-107); Globulin 2.2 g/dL (1.3-4.6); Glucose 161 mg/dL (65-115); Osmolality Calculated 287 mOsm/kg (285-295); Sodium 136 mmol/L (136-145); Total Bilirubin 0.4 mg/dL (0.15-1.2); Total Protein 5.3 g/dL (6.6-8.7)
[2023-06-23 11:33] LABS: Magnesium 2.1 mg/dL (1.7-2.3)
[2023-06-23 11:36] LABS: Anion Gap 14.5 (5-19); Potassium 4.5 mmol/L (3.5-5.1)
[2023-06-23 12:25] LABS: Prostate Specific Antigen 0.072 ng/mL (0-4)
--- NOTE | 2023-06-23 13:00 | PC.PHAR ---
[facility] HAD [facility] LIST [facility] HAND
[2023-06-23] MEDS: acetaminophen 500 mg Tablet 1000 MG PO (13:07)
== END 2023-06-23 18:48 | disposition home or self-care (01) ==
PROVIDERS: Emergency Provider Emergency Medicine; PCP Family Medicine
DX: D64.9 Anemia, unspecified (principal); Z85.46 Personal history of malignant neoplasm of prostate; M32.9 Systemic lupus erythematosus, unspecified
CPT/HCPCS: 36415; 36430; 71045; 80053; 83735; 84153; 85025; 85610; 86850; 86900; 86920; 93005; 99285; P9016

== ENCOUNTER 2023-06-25 04:59 | Emergency (ER) | payer MEDICARE, SELFPAY ==
[2023-06-25 05:00] VITALS: BP 108/63; PULSE 78; RESP 18; TEMP 37.1; O2SAT 95; BMI 25.1
[2023-06-25 05:26] LABS: Basophils % 0.3 %; Hematocrit 22.1 % (37-53); Lymphocytes # 0.6 10^3/uL (0.8-4.8); Lymphocytes % 8.9 %; Mean Corpuscular HGB Conc 31.2 g/dL (30-55); Mean Corpuscular Volume 92.9 fl (82-101); Mean Platelet Volume 10.3 fL (7.4-10.4); Monocytes # 1.2 10^3/uL (0.2-0.9); Monocytes % 19.1 %; Neutrophils # 4.37 10^3/uL (1.8-7.7); Neutrophils % 70.9 %; Nucleated Red Blood Cells % 0 %; Platelet Count 184 10^3/cmm (157-399); Red Blood Count 2.38 10^6/uL (3.85-5.65); Red Cell Distribution Width 18.2 % (12.1-15.1); White Blood Count 6.17 10^3/uL (3.29-11.43)
--- NOTE | 2023-06-25 05:38 | ED_ITS ---
Documented by User: Madhu Cornell DO 06/25/23 05:53 HPI - Male Genitourinary General: Chief complaint: Urogenital-Male Stated complaint: CATH PROBLEMS Time Seen by Provider: 06/25/23 05:12 Source: patient History of Present Illness: 88-year-old male gentleman. He has been battling gross hematuria. He received 2 units of blood in the ER for hemoglobin below 6 on Sunday. He presents with continued bleeding into the Cary bag, with bleeding now around the catheter. He is in more pain. There is decreased urinary output in the Cary bag. No noted trauma. The patient is not on anticoagulants. MD Complaint: other Associated symptoms: Reports hematuria and urinary incontinence; Deny nausea or vomiting Review of Systems Const: Denies: fever(s) or chills Card: Denies: chest pain Resp: Denies: dyspnea GI: Reports: abdominal pain; Denies: nausea or vomiting : Reports: urinary incontinence and hematuria; Denies: flank pain PFS ED PFSH: Medical History Constipation due to opioid therapy DDD (degenerative disc disease) Decubitus ulcer of coccyx GERD (gastroesophageal reflux disease) History of pancreatitis History of prostate cancer Osteoarthritis Osteoporosis Systemic lupus erythematosus Surgical History History of bilateral carpal tunnel release History of hand surgery left trigger finger History of lumbar surgery History of open reduction and internal fixation (ORIF) procedure r femur History of open reduction and internal fixation (ORIF) procedure r elbow History of repair of right rotator cuff History of total bilateral knee replacement Status post insertion of spinal cord stimulator Family History Mother Dementia Father Rheumatoid arthritis Social History Smoking and tobacco/nicotine status: never used tobacco/nicotine Alcohol intake: current Alcohol intake frequency: holidays/special occasions only Substance/Drug Use: never Lives independently: Yes Household members: spouse Marital status: Number of children: 2 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 Physical Exam Const: GENERAL APPEARANCE: cooperative and frail appearing HENMT: COMMON NORMALS: normocephalic, atraumatic and Normal external nose present HEAD & SCALP: normocephalic and atraumatic FACE & SINUS: normal facial exam NOSE: Normal external nose present Eye: COMMON NORMALS: Equal, round and reactive pupils present and EOMs intact bilaterally PUPIL: Yes Equal, round and reactive pupils present Neck/C-Spine: GENERAL: Yes trachea midline Chest: CHEST: Yes Symmetrical chest wall rise Resp: COMMON NORMALS: normal respiratory effort, No retractions and clear to auscultation bilaterally AUSCULTATION: clear to auscultation bilaterally Cardio: COMMON NORMALS: regular rate and regular rhythm RATE: regular rate RHYTHM: regular rhythm GI: PALPATION: Yes Tenderness to palpation present (GI) (Suprapubic) and Yes Guarding due to palpation present (GI) : COMMON NORMALS: Yes no CVA tenderness BLADDER/KIDNEY EXAM: Yes no CVA tenderness MEATUS: Blood at meatus present Back/Pelvis: COMMON NORMALS: no CVA tenderness Extremity: GENERAL: Yes edema (Minimal) Neuro: HELDER COMA SCALE: document GCS findings Helder coma scale eye opening: Spontaneous Helder coma scale verbal response: Orientated Helder coma scale motor response: Obey commands Edson coma scale total score: 15 Psych: COMMON NORMALS: mental status grossly normal Skin: NARRATIVE SKIN EXAM: Pallor Course Vital Signs: Vital signs: Vital Signs Temperature 98.4 F 06/25/23 10:00 Pulse Rate 77 06/25/23 10:00 Respiratory Rate 16 06/25/23 10:00 Blood Pressure 130/65 06/25/23 10:00 Pulse Oximetry 95 06/25/23 10:00 Oxygen Delivery Me thod Room Air 06/25/23 06:25 MDM - Male Medical Decision Making 88-year-old male vitals presenting by ambulance with gross hematuria, around his Cary catheter. He required 2 units of blood to be transfused over the weekend because of this. Now he has a blocked catheter, with blood coming out around the catheter at the meatus. Cary changed to three-way catheter for CBI. Awaiting renal function and other laboratory. He may require transfer as we do not have urology services available here. Patient will be checked out to Dr. Kelley at shift change. Lab Data 06/25/23 05:10 06/25/23 05:10 Laboratory Results WBC 6.17 10^3/uL (3.29-11.43) 06/25/23 05:10 RBC 2.38 10^6/uL (3.85-5.65) L 06/25/23 05:10 Hgb 6.90 g/dL (11.27-16.99) L 06/25/23 05:10 Hct 22.1 % (37-53) L 06/25/23 05:10 MCV 92.9 fl (82-101) 06/25/23 05:10 MCH 29.0 pg (27-33) 06/25/23 05:10 MCHC 31.2 g/dL (30-55) 06/25/23 05:10 RDW 18.2 % (12.1-15.1) H 06/25/23 05:10 Plt Count 184 10^3/cmm (157-399) 06/25/23 05:10 MPV 10.3 fL (7.4-10.4) 06/25/23 05:10 Neut % (Auto) 70.9 % 06/25/23 05:10 Lymph % (Auto) 8.9 % 06/25/23 05:10 [place] % (Auto) 19.1 % 06/25/23 05:10 Eos % (Auto) 0.0 % 06/25/23 05:10 Baso % (Auto) 0.3 % 06/25/23 05:10 Neut # (Auto) 4.37 10^3/uL (1.8-7.7) 06/25/23 05:10 Lymph # (Auto) 0.6 10^3/uL (0.8-4.8) L 06/25/23 05:10 [place] # (Auto) 1.2 10^3/uL (0.2-0.9) H 06/25/23 05:10 Eos # (Auto) 0.0 10^3/uL (0.0-0.8) 06/25/23 05:10 Baso # (Auto) 0.0 10^3/uL (0.0-0.1) 06/25/23 05:10 Nucleated RBC % (auto) 0 % 06/25/23 05:10 Nucleated RBCs # 0.0 /100WBC 06/25/23 05:10 PT 14.30 SECONDS (12.1-14.9) 06/25/23 05:10 INR 1.08 (0.8-1.2) 06/25/23 05:10 APTT 30.3 SECONDS (23.9-36.7) 06/25/23 05:10 Sodium 138 mmol/L (136-145) 06/25/23 05:10 Potassium 4.0 mmol/L (3.5-5.1) 06/25/23 05:10 Chloride 106 mmol/L (98-107) 06/25/23 05:10 Carbon Dioxide 26 mmol/L (22-29) 06/25/23 05:10 Anion Gap 10.0 (5-19) 06/25/23 05:10 BUN 14 mg/dL (8-23) 06/25/23 05:10 Creatinine 1.2 mg/dL (0.7-1.2) 06/25/23 05:10 GFR Calculation Not Reportable 06/25/23 05:10 Glucose 101 mg/dL (65-115) 06/25/23 05:10 Calculated Osmolality 287 mOsm/kg (285-295) 06/25/23 05:10 Calcium 8.3 mg/dL (8.5-10.5) L 06/25/23 05:10 Total Bilirubin 0.7 mg/dL (0.15-1.2) 06/25/23 05:10 AST 10 U/L (0-40) 06/25/23 05:10 ALT 7 U/L (0-41) 06/25/23 05:10 Alkaline Phosphatase 195 U/L (40-130) H 06/25/23 05:10 Total Protein 4.8 g/dL (6.6-8.7) L 06/25/23 05:10 Albumin 3.2 g/dL (3.5-5.2) L 06/25/23 05:10 Globulin 1.6 g/dL (1.3-4.6) 06/25/23 05:10 Urine Color Red (Yellow) A 06/25/23 05:29 Urine Appearance Bloody (CLEAR) A 06/25/23 05:29 Urine pH 7 (5-7) 06/25/23 05:29 Ur Specific [place] 1.010 (1.005-1.030) 06/25/23 05:29 Urine Protein 3+ (Negative) H 06/25/23 05:29 Urine Glucose (UA) Norm (Normal) 06/25/23 05:29 Urine Ketones Negative (Negative) 06/25/23 05:29 Urine Blood 3+ (Negative) H 06/25/23 05:29 Urine Nitrate Negative (Negative) 06/25/23 05:29 Urine Bilirubin Neg (Negative) 06/25/23 05:29 Urine Urobilinogen Norm mg/dL (Negative) 06/25/23 05:29 Ur Leukocyte Esterase 1+ (Negative) H 06/25/23 05:29 Urine RBC Too numerous to cnt /hpf (0-2) H 06/25/23 05:29 Urine WBC 5-10 /hpf (0-5) H 06/25/23 05:29 Ur Squamous Epith Cells 0-4 /hpf (0-5) H 06/25/23 05:29 Amorphous Sediment Not Reportable 06/25/23 05:29 Urine Bacteria Trace /hpf (NONE) 06/25/23 05:29 Blood Type O Positive 06/25/23 06:43 Rho(D) Type Positive 06/25/23 06:43 Antibody Screen Negative 06/25/23 06:43 Crossmatch See Detail 06/25/23 06:43 No radiology studies performed this visit Discharge Plan Discharge Patient Disposition: Short Term Hosp w Plan Readm Clinical Impression: Hematuria, Acute blood loss anemia, Urethral stenosis Condition: Stable Referrals: Rukhsana Gutierrez MD [Primary Care Provider] - Sign Out Sign Out Data: Patient Sign Out occurred on 06/25/23 at 05:57. Patient's care was discussed, and care was transferred from to Mack Kelley DO. Coding Level of Care Code ED Local Area Network Systems Adminstrator for [facility] Documented by User: Mack Kelley DO 06/25/23 15:18 HPI - Male Genitourinary General: Chief complaint: Urogenital-Male Stated complaint: CATH PROBLEMS Time Seen by Provider: 06/25/23 05:12 PFSH ED PFSH: Medical History Constipation due to opioid therapy DDD (degenerative disc disease) Decubitus ulcer of coccyx GERD (gastroesophageal reflux disease) History of pancreatitis History of prostate cancer Osteoarthritis Osteoporosis Systemic lupus erythematosus Surgical History History of bilateral carpal tunnel release History of hand surgery left trigger finger History of lumbar surgery History of open reduction and internal fixation (ORIF) procedure r femur History of open reduction and internal fixation (ORIF) procedure r elbow History of repair of right rotator cuff History of total bilateral knee replacement Status post insertion of spinal cord stimulator Family History Mother Dementia Father Rheumatoid arthritis Social History Smoking and tobacco/nicotine status: never used tobacco/nicotine Alcohol intake: current Alcohol intake frequency: holidays/special occasions only Substance/Drug Use: never Lives independently: Yes Household members: spouse Marital status: Number of children: 2 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 He required 2 units of blood to be transfused over the weekend because of this. Now he has a blocked catheter, with blood coming out around the catheter at the meatus. Cary changed to three-way catheter for CBI. Awaiting renal function and other laboratory. He may require transfer as we do not have urology services available here. Patient will be checked out to Dr. Kelley at [facility]. Discussed Dr. Luna and his PA at [place] they will accept the patient on transfer we are unable to get Cary placed he will need placement of Cary which is been very difficult in the past with him due to ureteral stenosis. Additionally he will need irrigation and likely cystoscopy. Patient was significantly anemic and was transfused 1 unit of blood. Medical Records I reviewed the patient's medical records. Lab Data I reviewed the patient's lab results. 06/25/23 05:10 06/25/23 05:10 Laboratory Results WBC 6.17 10^3/uL (3.29-11.43) 06/25/23 05:10 RBC 2.38 10^6/uL (3.85-5.65) L 06/25/23 05:10 Hgb 6.90 g/dL (11.27-16.99) L 06/25/23 05:10 Hct 22.1 % (37-53) L 06/25/23 05:10 MCV 92.9 fl (82-101) 06/25/23 05:10 MCH 29.0 pg (27-33) 06/25/23 05:10 MCHC 31.2 g/dL (30-55) 06/25/23 05:10 RDW 18.2 % (12.1-15.1) H 06/25/23 05:10 Plt Count 184 10^3/cmm (157-399) 06/25/23 05:10 MPV 10.3 fL (7.4-10.4) 06/25/23 05:10 Neut % (Auto) 70.9 % 06/25/23 05:10 Lymph % (Auto) 8.9 % 06/25/23 05:10 [place] % (Auto) 19.1 % 06/25/23 05:10 Eos % (Auto) 0.0 % 06/25/23 05:10 Baso % (Auto) 0.3 % 06/25/23 05:10 Neut # (Auto) 4.37 10^3/uL (1.8-7.7) 06/25/23 05:10 Lymph # (Auto) 0.6 10^3/uL (0.8-4.8) L 06/25/23 05:10 [place] # (Auto) 1.2 10^3/uL (0.2-0.9) H 06/25/23 05:10 Eos # (Auto) 0.0 10^3/uL (0.0-0.8) 06/25/23 05:10 Baso # (Auto) 0.0 10^3/uL (0.0-0.1) 06/25/23 05:10 Nucleated RBC % (auto) 0 % 06/25/23 05:10 Nucleated RBCs # 0.0 /100WBC 06/25/23 05:10 PT 14.30 SECONDS (12.1-14.9) 06/25/23 05:10 INR 1.08 (0.8-1.2) 06/25/23 05:10 APTT 30.3 SECONDS (23.9-36.7) 06/25/23 05:10 Sodium 138 mmol/L (136-145) 06/25/23 05:10 Potassium 4.0 mmol/L (3.5-5.1) 06/25/23 05:10 Chloride 106 mmol/L (98-107) 06/25/23 05:10 Carbon Dioxide 26 mmol/L (22-29) 06/25/23 05:10 Anion Gap 10.0 (5-19) 06/25/23 05:10 BUN 14 mg/dL (8-23) 06/25/23 05:10 Creatinine 1.2 mg/dL (0.7-1.2) 06/25/23 05:10 GFR Calculation Not Reportable 06/25/23 05:10 Glucose 101 mg/dL (65-115) 06/25/23 05:10 Calculated Osmolality 287 mOsm/kg (285-295) 06/25/23 05:10 Calcium 8.3 mg/dL (8.5-10.5) L 06/25/23 05:10 Total Bilirubin 0.7 mg/dL (0.15-1.2) 06/25/23 05:10 AST 10 U/L (0-40) 06/25/23 05:10 ALT 7 U/L (0-41) 06/25/23 05:10 Alkaline Phosphatase 195 U/L (40-130) H 06/25/23 05:10 Total Protein 4.8 g/dL (6.6-8.7) L 06/25/23 05:10 Albumin 3.2 g/dL (3.5-5.2) L 06/25/23 05:10 Globulin 1.6 g/dL (1.3-4.6) 06/25/23 05:10 Urine Color Red (Yellow) A 06/25/23 05:29 Urine Appearance Bloody (CLEAR) A 06/25/23 05:29 Urine pH 7 (5-7) 06/25/23 05:29 Ur Specific [place] 1.010 (1.005-1.030) 06/25/23 05:29 Urine Protein 3+ (Negative) H 06/25/23 05:29 Urine Glucose (UA) Norm (Normal) 06/25/23 05:29 Urine Ketones Negative (Negative) 06/25/23 05:29 Urine Blood 3+ (Negative) H 06/25/23 05:29 Urine Nitrate Negative (Negative) 06/25/23 05:29 Urine Bilirubin Neg (Negative) 06/25/23 05:29 Urine Urobilinogen Norm mg/dL (Negative) 06/25/23 05:29 Ur Leukocyte Esterase 1+ (Negative) H 06/25/23 05:29 Urine RBC Too numerous to cnt /hpf (0-2) H 06/25/23 05:29 Urine WBC 5-10 /hpf (0-5) H 06/25/23 05:29 Ur Squamous Epith Cells 0-4 /hpf (0-5) H 06/25/23 05:29 Amorphous Sediment Not Reportable 06/25/23 05:29 Urine Bacteria Trace /hpf (NONE) 06/25/23 05:29 Blood Type O Positive 06/25/23 06:43 Rho(D) Type Positive 06/25/23 06:43 Antibody Screen Negative 06/25/23 06:43 Crossmatch See Detail 06/25/23 06:43 Discharge Plan Discharge Patient Disposition: Short Term Hosp w Plan Readm Clinical Impression: Hematuria, Acute blood loss anemia, Urethral stenosis Condition: Stable Referrals: Rukhsana Gutierrez MD [Primary Care Provider] - Sign Out Sign Out Data: Patient Sign Out occurred on 06/25/23 at 05:57. Patient's care was discussed, and care was transferred from to Mack Kelley DO. Coding Level of Care Code ED Local Area Network Systems Adminstrator for [facility] Ernesto
[2023-06-25 05:48] LABS: INR 1.08 (0.8-1.2); Partial Thromboplastin Time 30.3 SECONDS (23.9-36.7)
[2023-06-25 05:53] LABS: Alanine Aminotransferase 7 U/L (0-41); Albumin Level 3.2 g/dL (3.5-5.2); Alkaline Phosphatase 195 U/L (40-130); Aspartate Amino Transferase 10 U/L (0-40); Blood Urea Nitrogen 14 mg/dL (8-23); Calcium 8.3 mg/dL (8.5-10.5); Carbon Dioxide 26 mmol/L (22-29); Chloride 106 mmol/L (98-107); Globulin 1.6 g/dL (1.3-4.6); Glucose 101 mg/dL (65-115); Osmolality Calculated 287 mOsm/kg (285-295); Sodium 138 mmol/L (136-145); Total Bilirubin 0.7 mg/dL (0.15-1.2); Total Protein 4.8 g/dL (6.6-8.7)
[2023-06-25 06:10] LABS: Glucose Urine UA Norm (Normal); Ketones Urine Negative (Negative); Protein Urine 3+ (Negative); Urine Appearance Bloody (CLEAR); Urine Color Red (Yellow); pH Urine 7 (5-7)
[2023-06-25 06:11] LABS: Add Urine Culture? Yes; Add Urine Microscopic? YES; Bacteria Urine TRACE /hpf; Bilirubin Urine Neg (Negative); Blood Urine 3+ (Negative); Leukocyte Esterase Urine 1+ (Negative); Nitrate Urine Negative (Negative); RBC Urine TOO NUMEROUS TO CNT /hpf (0-2); Squamous Epithelial Cell Urine 0-4 /hpf (0-5); Urobilinogen Urine Norm (Negative)
[2023-06-25 06:25] VITALS: BP 111/62; PULSE 118; RESP 20; O2SAT 96
[2023-06-25 06:38] VITALS: RESP 18
[2023-06-25] MEDS: morphine 4 mg/mL SDV 1 mL IVP (06:38)
[2023-06-25] MEDS: ondansetron 2 mg/ML SDV 2 mL 4 MG IVP (06:39)
[2023-06-25 07:57] VITALS: BP 115/59; PULSE 76; RESP 16; TEMP 37
[2023-06-25 08:14] VITALS: BP 126/67; PULSE 76; RESP 16; TEMP 37; O2SAT 100
--- NOTE | 2023-06-25 08:42 | PC.NURSE ---
to room to place mcknight. attempted multiple times with 12 fr. coude without success. notified.
[2023-06-25 10:00] VITALS: BP 130/65; PULSE 77; RESP 16; TEMP 36.9; O2SAT 95
== END 2023-06-25 11:57 | disposition short-term general hospital, planned readmission (82) ==
PROVIDERS: Emergency Medicine; Emergency Provider Family Medicine; PCP Family Medicine
DX: R31.9 Hematuria, unspecified (principal); D62 Acute posthemorrhagic anemia; N35.919 Unspecified urethral stricture, male, unspecified site; Z85.46 Personal history of malignant neoplasm of prostate; M32.9 Systemic lupus erythematosus, unspecified
CPT/HCPCS: 36415; 36430; 80053; 81001; 85025; 85610; 85730; 86850; 86900; 86920; 87077; 87086; 87186; 96374; 96375; 99284; J2270; J2405; P9016

== ENCOUNTER 2023-07-03 11:50 | Emergency (ER) | payer MEDICARE, SELFPAY ==
--- NOTE | 2023-07-03 11:57 | XRR_ITS ---
PROCEDURE INFORMATION: Exam: XR Chest Exam date and time: 07/03/2023 12:06 PM Age: 88 years old Clinical indication: Shortness of breath TECHNIQUE: Imaging protocol: Radiologic exam of the chest. Views: 1 view. COMPARISON: CR (CHEST, ) 06/23/2023 11:16 AM FINDINGS: Lungs: There is patchy ill-defined opacity projecting over the right mid to lower lung and left lung base which is more apparent than on 06/23/2023, due at least in part to superimposed rib fractures and decreased lung volumes since 06/23/2023. Differences may also be related to changes in radiographic projection. Pleural spaces: There is no pleural effusion or pneumothorax. Heart/Mediastinum: There is mild enlargement of the cardiac silhouette. Bones/joints: There is gas beneath the right hemidiaphragm, decreased since 06/23/2023. There are multiple right posterior rib fractures and inferolateral left rib fractures which are not well evaluated on this exam. XR/XR chest 1V portable [id number] IMPRESSION: 1. Limited assessment of the lungs. 2. Apparent increase of opacities in the mid to lower right and lower left lung are nonspecific and may be attributable to differences in radiographic projection and decreased lung volumes since 06/23/2023. Infection and edema are not excluded. 3. Decreased gas beneath the right hemidiaphragm since 06/23/2023, likely related to decreased gas distention of the colon interposed between the liver and right diaphragm.
[2023-07-03 11:59] VITALS: BP 109/72; PULSE 90; TEMP 36.6; O2SAT 96
--- NOTE | 2023-07-03 12:09 | ED_ITS ---
HPI - SOB/Dyspnea General: Chief Complaint: Shortness of Breath/Dyspnea Stated Complaint: SOB, Sent by urgent care Time Seen by Provider: 07/03/23 11:57 Source: patient Mode of arrival: EMS History of Present Illness: HPI Narrative: 88-year-old male presents emergency room complaining of shortness of breath with exertion. He is unable to ambulate lives at assisted living. He he has not had any chest pain. No labored breathing when he arrives here no orthopnea. MD elicited complaint: shortness of breath Pertinent past history: congestive heart failure Onset (ago): hour(s) Associated symptoms: Deny abdominal pain, chest congestion, chest pain, cough, diaphoresis, dizziness, extremity pain, fever(s), hemoptysis, lightheadedness, myalgias, nausea, orthopnea, palpitations, paresthesias, polydipsia, polyuria, rash, sense of impending doom, syncope, vomiting or other Treatment prior to arrival: none Review of Systems Const: Denies: fever(s), chills or diaphoresis Card: Reports: dyspnea on exertion; Denies: chest pain, palpitations, lightheadedness, syncope or orthopnea Resp: Reports: dyspnea; Denies: hemoptysis or chest congestion GI: Denies: abdominal pain, nausea or vomiting : Denies: dysuria, urinary frequency or urinary urgency Musc: Denies: neck pain, back pain or extremity pain Skin/Breast: Denies: rash Neuro: Denies: dizziness Endo: Denies: polyuria or polydipsia PFSH ED PFSH: Medical History Constipation due to opioid therapy DDD (degenerative disc disease) Decubitus ulcer of coccyx GERD (gastroesophageal reflux disease) History of pancreatitis History of prostate cancer Osteoarthritis Osteoporosis Systemic lupus erythematosus Surgical History History of bilateral carpal tunnel release History of hand surgery left trigger finger History of lumbar surgery History of open reduction and internal fixation (ORIF) procedure r femur History of open reduction and internal fixation (ORIF) procedure r elbow History of repair of right rotator cuff History of total bilateral knee replacement Status post insertion of spinal cord stimulator Family History Mother Dementia Father Rheumatoid arthritis Social History Smoking and tobacco/nicotine status: never used tobacco/nicotine Alcohol intake: current Alcohol intake frequency: holidays/special occasions only Substance/Drug Use: never Lives independently: Yes Household members: spouse Marital status: Number of children: 2 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 Physical Exam Const: COMMON NORMALS: no acute distress GENERAL APPEARANCE: cooperative and comfortable ORIENTATION/CONSCIOUSNESS: Yes awake, Yes oriented to person, Yes oriented to place and Yes oriented to time HENMT: COMMON NORMALS: normocephalic, atraumatic and hearing grossly normal bilaterally HEAD & SCALP: normocephalic and atraumatic Resp: COMMON NORMALS: normal respiratory effort, No retractions, No use of accessory muscles and clear to auscultation bilaterally AUSCULTATION: clear to auscultation bilaterally and crackles Cardio: COMMON NORMALS: regular rate, regular rhythm and No murmurs present (Cardio) RATE: regular rate RHYTHM: regular rhythm GI: COMMON NORMALS: Soft to palpation and No hepatosplenomegaly present AUSCULTATION: Yes normoactive bowel sounds PALPATION: Yes Soft to palpation, No Tenderness to palpation present (GI), No Guarding due to palpation present (GI) and Yes No hepatosplenomegaly present Extremity: COMMON NORMALS: normal to inspection, capillary refill normal, no clubbing, cyanosis or edema, no calf tenderness and no pedal edema Neuro: SENSORIUM/ORIENTATION: Yes oriented to person, Yes oriented to place and Yes oriented to time Skin: COMMON NORMALS: no rashes or lesions noted GENERAL SKIN EXAM: no rashes or lesions noted Course Vital Signs: Vital signs: Vital Signs Temperature 97.9 F 07/03/23 11:59 Pulse Rate 88 07/03/23 15:18 Respiratory Rate 18 07/03/23 15:18 Blood Pressure 148/81 07/03/23 15:18 Pulse Oximetry 95 07/03/23 15:18 Oxygen Delivery Me thod Room Air 07/03/23 15:18 MDM - SOB/Dyspnea Medical Decision Making Patient is not having significant orthopnea. He is given 40 Lasix in route. His sats have maintained normal his BNP is elevated but is not has significant findings of pulmonary vascular congestion on his chest x-ray. He is not ambulatory to home we look to do an ambulatory O2 sat but he does not ambulate. Discharge patient home on Lasix 20 daily he is mildly hypokalemic so also given potassium supplement should recheck in 3 days his primary care doctor for a BMP return if he has worsening problems. Medical Records I reviewed the patient's medical records. Lab Data I reviewed the patient's lab results. 07/03/23 12:00 07/03/23 12:50 Labs/Radiology: Radiology Impressions Chest X-Ray 07/03/23 11:57 IMPRESSION: 1. Limited assessment of the lungs. 2. Apparent increase of opacities in the mid to lower right and lower left lung are nonspecific and may be attributable to differences in radiographic projection and decreased lung volumes since 06/23/2023. Infection and edema are not excluded. 3. Decreased gas beneath the right hemidiaphragm since 06/23/2023, likely related to decreased gas distention of the colon interposed between the liver and right diaphragm. Laboratory Results WBC 6.53 10^3/uL (3.29-11.43) 07/03/23 12:00 RBC 3.63 10^6/uL (3.85-5.65) L 07/03/23 12:00 Hgb 10.60 g/dL (11.27-16.99) L 07/03/23 12:00 Hct 33.9 % (37-53) L 07/03/23 12:00 MCV 93.4 fl (82-101) 07/03/23 12:00 MCH 29.2 pg (27-33) 07/03/23 12:00 MCHC 31.3 g/dL (30-55) 07/03/23 12:00 RDW 17.4 % (12.1-15.1) H 07/03/23 12:00 Plt Count 165 10^3/cmm (157-399) 07/03/23 12:00 MPV 10.9 fL (7.4-10.4) H 07/03/23 12:00 Neut % (Auto) 72.5 % 07/03/23 12:00 Lymph % (Auto) 5.4 % 07/03/23 12:00 [place] % (Auto) 20.4 % 07/03/23 12:00 Eos % (Auto) 0.0 % 07/03/23 12:00 Baso % (Auto) 0.6 % 07/03/23 12:00 Neut # (Auto) 4.74 10^3/uL (1.8-7.7) 07/03/23 12:00 Lymph # (Auto) 0.4 10^3/uL (0.8-4.8) L 07/03/23 12:00 [place] # (Auto) 1.3 10^3/uL (0.2-0.9) H 07/03/23 12:00 Eos # (Auto) 0.0 10^3/uL (0.0-0.8) 07/03/23 12:00 Baso # (Auto) 0.0 10^3/uL (0.0-0.1) 07/03/23 12:00 Nucleated RBC % (auto) 0 % 07/03/23 12:00 Nucleated RBCs # 0.0 /100WBC 07/03/23 12:00 Sodium 139 mmol/L (136-145) 07/03/23 12:50 Potassium 3.2 mmol/L (3.5-5.1) L 07/03/23 12:50 Chloride 101 mmol/L (98-107) 07/03/23 12:50 Carbon Dioxide 28 mmol/L (22-29) 07/03/23 12:50 Anion Gap 13.2 (5-19) 07/03/23 12:50 BUN 11 mg/dL (8-23) 07/03/23 12:50 Creatinine 0.8 mg/dL (0.7-1.2) 07/03/23 12:50 GFR Calculation Not Reportable 07/03/23 12:50 Glucose 109 mg/dL (65-115) 07/03/23 12:50 Calculated Osmolality 288 mOsm/kg (285-295) 07/03/23 12:50 Calcium 8.5 mg/dL (8.5-10.5) 07/03/23 12:50 Total Bilirubin 0.9 mg/dL (0.15-1.2) 07/03/23 12:50 AST 17 U/L (0-40) 07/03/23 12:50 ALT 13 U/L (0-41) 07/03/23 12:50 Alkaline Phosphatase 182 U/L (40-130) H 07/03/23 12:50 NT-Pro-B Natriuret Pep 2657 pg/mL (0-450) H 07/03/23 12:50 Total Protein 5.6 g/dL (6.6-8.7) L 07/03/23 12:50 Albumin 3.2 g/dL (3.5-5.2) L 07/03/23 12:50 Globulin 2.4 g/dL (1.3-4.6) 07/03/23 12:50 All radiology interpretation(s) finalized by discharge Discharge Plan Discharge Patient Disposition: Home Clinical Impression: CHF (congestive heart failure) Condition: Stable Prescriptions: New Lasix 40 mg tablet 20 mg PO DAILY Qty: 7 0RF potassium chloride 20 mEq tablet extended release 20 meq PO BID Qty: 20 0RF No Action acetaminophen [Tylenol 8 Hour] 650 mg tablet extended release 1,300 mg PO Q8H (DME) miscellaneous medical supply Misc See Rx Instructions .Route Qty: 1 0RF Rx Instructions: hospital bed amoxicillin-pot clavulanate 500-125 mg tablet 1 tab PO Q8H hydroxychloroquine [Plaquenil] 200 mg tablet 200 mg PO BID Qty: 60 4RF (DME) Electric Bed See Rx Instructions .Route .MEDSUPPLY Qty: 1 0RF Rx Instructions: As directed ferrous sulfate [FeroSul] 325 mg (65 mg iron) tablet 325 mg PO QAM Lactobacillus acidoph-pectin 30-20 mg Tablet 1 tab PO DAILY duloxetine [Cymbalta] 30 mg capsule,delayed release(DR/EC) 30 mg PO QAM lidocaine 5 % Adhesive Patch,Medicated 1 patch topical [id number] Qty: 30 0RF tamsulosin 0.4 mg Capsule 0.4 mg PO DAILY Qty: 90 0RF hydrocodone-acetaminophen 5-325 mg tablet See Rx Instructions .ROUTE .COMPLEX PRN (Reason: Pain) Rx Instructions: 1 - 2 tab orally EVERY 4-6 HOURS As Needed for Pain calcium carbonate [Calcium Antacid] 200 mg calcium (500 mg) Tablet,Chewable 1,000 mg PO DAILY docusate sodium 100 mg capsule 100 mg PO DAILY PRN (Reason: Constipation) capsaicin 0.025 % cream 1 applic TOPICAL QID PRN (Reason: Pain) cholecalciferol (vitamin D3) [Vitamin D3] 50 mcg (2,000 unit) Capsule 50 mcg PO DAILY Discharge Orders: Discharge ED (Routine); Ordered 07/03/23 Ordered By: Mack Kelley Referrals: Rukhsana Gutierrez MD [Primary Care Provider] - Discharge Diet: Usual diet Discharge Activity: Increase activity as tolerated Patient Instructions: Opioid Safety, Pain Management Activity Restrictions/Additional Instructions: Thank you for choosing [facility] for your healthcare needs today. Please realize this is an emergency room and that we are providing you with a medical screening exam and this may not be complete and all inclusive of all the testing and or work up that you may need to determine your ailment or severity of your illness. It is very important that you follow up as instructed or that you return to the Emergency Department should you have concerns or if your condition changes or worsens in any way. Your oxygenation in the emergency room is good you do appear to have some mild CHF. Recommend that you start Lasix 20 mg daily tomorrow. You are given IV Lasix in the emergency room. Also recommend you start potassium supplement 1 tablet twice daily you should take 1 this evening. Follow-up with your doctor in 3 days for repeat evaluation and basic metabolic profile. Return to emergency room if any worsening problems. Coding Level of Care Code ED Nut Dehydrator Operator for Felicity Orozco
[2023-07-03 12:12] LABS: Basophils % 0.6 %; Hematocrit 33.9 % (37-53); Lymphocytes # 0.4 10^3/uL (0.8-4.8); Lymphocytes % 5.4 %; Mean Corpuscular HGB Conc 31.3 g/dL (30-55); Mean Corpuscular Hemoglobin 29.2 pg (27-33); Mean Corpuscular Volume 93.4 fl (82-101); Mean Platelet Volume 10.9 fL (7.4-10.4); Monocytes # 1.3 10^3/uL (0.2-0.9); Monocytes % 20.4 %; Neutrophils # 4.74 10^3/uL (1.8-7.7); Neutrophils % 72.5 %; Nucleated Red Blood Cells % 0 %; Platelet Count 165 10^3/cmm (157-399); Red Blood Count 3.63 10^6/uL (3.85-5.65); Red Cell Distribution Width 17.4 % (12.1-15.1); White Blood Count 6.53 10^3/uL (3.29-11.43)
[2023-07-03 12:36] VITALS: BP 109/72; PULSE 89; RESP 18; O2SAT 97
--- NOTE | 2023-07-03 12:47 | PC.NURSE ---
PT HAS PLUS 3 PITTING EDEMA BILATERALLY IN LOWER EXTREMITIES.
[2023-07-03 13:33] LABS: Alanine Aminotransferase 13 U/L (0-41); Albumin Level 3.2 g/dL (3.5-5.2); Alkaline Phosphatase 182 U/L (40-130); Blood Urea Nitrogen 11 mg/dL (8-23); Calcium 8.5 mg/dL (8.5-10.5); Carbon Dioxide 28 mmol/L (22-29); Chloride 101 mmol/L (98-107); Globulin 2.4 g/dL (1.3-4.6); Glucose 109 mg/dL (65-115); NT Pro B Type Natriuretic Pept 2657 pg/mL (0-450); Osmolality Calculated 288 mOsm/kg (285-295); Sodium 139 mmol/L (136-145); Total Bilirubin 0.9 mg/dL (0.15-1.2); Total Protein 5.6 g/dL (6.6-8.7)
[2023-07-03 13:36] LABS: Anion Gap 13.2 (5-19); Aspartate Amino Transferase 17 U/L (0-40); Potassium 3.2 mmol/L (3.5-5.1)
[2023-07-03 13:56] VITALS: BP 145/83; PULSE 84; RESP 18; O2SAT 97
[2023-07-03 14:20] VITALS: O2SAT 95; O2SAT 97
[2023-07-03 15:18] VITALS: BP 148/81; PULSE 88; RESP 18; O2SAT 95
== END 2023-07-03 17:34 | disposition home or self-care (01) ==
PROVIDERS: Emergency Medicine; Emergency Provider Family Medicine; PCP Family Medicine
DX: I50.9 Heart failure, unspecified (principal); Z85.46 Personal history of malignant neoplasm of prostate; M32.9 Systemic lupus erythematosus, unspecified
CPT/HCPCS: 36415; 71045; 80053; 83880; 85025; 87040; 99284

== ENCOUNTER 2023-07-10 13:35 | Outpatient (CLI) | payer MEDICARE, SELFPAY ==
--- NOTE | 2023-07-10 14:15 | USCV_ITS ---
Srikanth Crocker Age: 88 Gender: M : 1935 Exam Date: 07/10/2023 14:41 Ordering Phys: Rukhsana Gutierrez MD Technologist: ASTRID Exam Location: [facility] [place] Indication: RUE SWELLING HISTORY: Upper extremity swelling. PROCEDURES: Venous duplex imaging was performed in only the right upper extremity. The following venous structures were evaluated: internal jugular vein, subclavian vein, axillary vein, and brachial veins. In addition, the basilic vein, cephalic vein, radial vein, and ulnar vein. Serial compression, augmentation maneuvers, and spectral Doppler flow evaluation were performed. FINDINGS: No evidence of deep vein thrombosis or superficial thrombophlebitis in the right upper extremity. CONCLUSIONS No right upper extremity DVT. Dr. Annie Frausto DO (Electronically Signed) Final Date: 10 July 2023 15:34 S
== END 2023-07-10 13:36 | disposition home or self-care (01) ==
LOC: RAD 13:35
PROVIDERS: PCP Family Medicine; Visit Provider Family Medicine
DX: M79.601 Pain in right arm (principal); M79.89 Other specified soft tissue disorders
CPT/HCPCS: 80053; 83880; 85025; 93971

== ENCOUNTER 2023-07-11 13:52 | Outpatient (CLI) | payer MEDICARE, SELFPAY ==
[2023-07-11 14:34] LABS: Prostate Specific Antigen 0.034 ng/mL (0-4)
== END 2023-07-11 13:53 | disposition home or self-care (01) ==
LOC: LAB 13:56
PROVIDERS: PCP Family Medicine; Visit Provider Family Medicine
DX: Z85.46 Personal history of malignant neoplasm of prostate (principal)
CPT/HCPCS: 84153

== ENCOUNTER 2023-07-17 18:57 | Emergency (ER) | payer MEDICARE, SELFPAY ==
[2023-07-17] VITALS (41 sets, daily range): BP systolic 65–119; BP diastolic 44–68; PULSE 92–119; RESP 16–35; TEMP 35.6–36.1; O2SAT 88–100; BMI 23.0
--- NOTE | 2023-07-17 19:03 | ECG_ITS ---
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 Measurements Intervals [place] Rate: 102 P: 45 WA: 195 QRS: 35 QRSD: 104 T: 0 QT: 352 QTc: 459 Interpretive Statements SINUS TACHYCARDIA WITH OCCASIONAL SUPRAVENTRICULAR PREMATURE COMPLEXES LOW QRS VOLTAGE IN PRECORDIAL LEADS [QRS DEFLECTION < 1.0 mV IN CHEST LEADS] NONSPECIFIC ST & T-WAVE ABNORMALITY Poor R wave progression ABNORMAL RHYTHM ECG Compared to ECG 06/23/2023 11:08:00 Low QRS voltage now present Sinus rhythm no longer present First degree AV block no longer present T-wave abnormality still present Electronically Signed On 07-17-2023 23:20:52 GRID MAKER by Piyush Giang M.D. [email or web address] [employer]/store/NU/[id number] f
--- NOTE | 2023-07-17 19:03 | XRR_ITS ---
PROCEDURE INFORMATION: Exam: XR Chest Exam date and time: 07/17/2023 7:09 PM Age: 88 years old Clinical indication: Other: AMS TECHNIQUE: Imaging protocol: Radiologic exam of the chest. Views: 1 view. COMPARISON: CR (CHEST, ) 07/03/2023 12:06 PM FINDINGS: Lungs: Unremarkable. No consolidation. Pleural spaces: Unremarkable. No pleural effusion. No pneumothorax. Heart/Mediastinum: See Vasculature finding. Vasculature: Mild cardiomegaly and uncoiling of the thoracic aorta accentuated by the AP positioning. Bones/joints: Incompletely imaged cervical neurostimulator. XR/XR chest 1V portable [id number] IMPRESSION: No acute findings.
--- NOTE | 2023-07-17 19:45 | PC.NURSE ---
pt aox2 at this time. pt able to respond to verbal stimuli. pt verbally verified name, , and location.
[2023-07-17] MEDS: sodium chloride 0.9% 1,000 ML 999 ML IV ×2 (19:50→20:31)
[2023-07-17 19:52] LABS: Basophils # 0.1 10^3/uL (0.0-0.1); Basophils % 0.2 %; Lymphocytes # 0.2 10^3/uL (0.8-4.8); Lymphocytes % 0.7 %; Mean Corpuscular HGB Conc 30.5 g/dL (30-55); Mean Corpuscular Hemoglobin 28.4 pg (27-33); Mean Corpuscular Volume 93.2 fl (82-101); Mean Platelet Volume 11.9 fL (7.4-10.4); Monocytes # 1.9 10^3/uL (0.2-0.9); Monocytes % 5.3 %; Neutrophils % 89.5 %; Nucleated Red Blood Cells % 0 %; Platelet Count 237 10^3/cmm (157-399); Red Cell Distribution Width 18.8 % (12.1-15.1)
--- NOTE | 2023-07-17 19:52 | PC.NURSE ---
pts rectal temp 96.8. Dr. Olguin notified. see garcia placed on pt at this time. all blankets removed.
--- NOTE | 2023-07-17 19:56 | ED_ITS ---
HPI - Altered Mental Status General: Chief Complaint: Altered Mental Status Stated Complaint: AMS Time Seen by Provider: 07/17/23 18:59 History of Present Illness: Patient brought to the ER from the residential via EMS with altered mental status. Patient is family says has been increasingly weak not eating, diaphoretic and has not urinated today. Patient is currently altered appears lethargic and drowsy. He responds to verbal stimuli but is very poor and following directions. Patient's rectal temperature upon arrival was 96.5 degrees patient is very pale looking. Patient has a history of prostate cancer with gross hematuria to the point of requiring transfusions. Patient has a urologist in [place]. The last couple times in the ER where a [place] catheter needed to be placed everybody was unsuccessful and he had to be transferred to [place]. Review of Systems General: Reports: ROS unobtainable due to mental status PFS ED PFSH: Medical History Constipation due to opioid therapy DDD (degenerative disc disease) Decubitus ulcer of coccyx GERD (gastroesophageal reflux disease) History of pancreatitis History of prostate cancer Osteoarthritis Osteoporosis Systemic lupus erythematosus Surgical History History of bilateral carpal tunnel release History of hand surgery left trigger finger History of lumbar surgery History of open reduction and internal fixation (ORIF) procedure r femur History of open reduction and internal fixation (ORIF) procedure r elbow History of repair of right rotator cuff History of total bilateral knee replacement Status post insertion of spinal cord stimulator Family History Mother Dementia Father Rheumatoid arthritis Social History Smoking and tobacco/nicotine status: never used tobacco/nicotine Alcohol intake: current Alcohol intake frequency: holidays/special occasions only Substance/Drug Use: never Lives independently: Yes Household members: spouse Marital status: Number of children: 2 Current occupational status: retired 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 Physical Exam Const: COMMON NORMALS: no acute distress, average body habitus, alert and well nourished; limitations HENMT: COMMON NORMALS: normocephalic, atraumatic, hearing grossly normal bilaterally, external ears normal, Normal external nose present, moist oral mucous membranes and oropharynx normal HEAD & SCALP: normocephalic and atraumatic NOSE: Normal external nose present EXTERNAL EAR: Yes external ears normal Eye: COMMON NORMALS: Equal, round and reactive pupils present, EOMs intact bilaterally, conjunctivae normal and no scleral icterus CONJUNCTIVA: Yes conjunctivae normal PUPIL: Yes Equal, round and reactive pupils present Neck/C-Spine: COMMON NORMALS: full ROM, no lymphadenopathy, supple, no meningeal signs, no JVD and Thyroid normal THYROID: Thyroid normal Chest: COMMONS NORMALS: normal inspection of the chest and normal palpation of entire chest wall Resp: COMMON NORMALS: normal respiratory effort, No retractions, No use of accessory muscles and clear to auscultation bilaterally AUSCULTATION: clear to auscultation bilaterally Cardio: COMMON NORMALS: no JVD, regular rate, regular rhythm, S1 normal heart sound present, S2 normal heart sound present, No gallops present (Cardio), No clicks present (Cardio), No murmurs present (Cardio) and No rub (Cardio) RATE: regular rate RHYTHM: regular rhythm HEART SOUNDS: S1 normal heart sound present and S2 normal heart sound present GI: COMMON NORMALS: Normal to inspection, nondistended, normoactive bowel sounds present, Soft to palpation, No hepatosplenomegaly present and no masses; negative for non-tender (Patient grimaces with palpation of right side of abdomen.) PALPATION: Yes Soft to palpation and Yes No hepatosplenomegaly present Neuro: SENSORIUM/ORIENTATION: Yes alert MENINGEAL SIGNS: Yes no meningeal signs Course Vital Signs: Vital signs: Vital Signs Temperature 96.9 F L 07/17/23 22:00 Pulse Rate 101 H 07/17/23 22:00 Respiratory Rate 29 H 07/17/23 22:00 Blood Pressure 93/48 07/17/23 22:00 Pulse Oximetry 98 07/17/23 22:00 Oxygen Delivery Me thod Room Air 07/17/23 20:23 MDM - Altered Mental Status Medical Decision Making During patient stay multiple labs were performed including a CBC which revealed a white count of 36.6 hemoglobin hematocrit of 5.4 and 17.7 as well as BUN/creatinine of 42 and 1.6 chest x-ray showed no acute findings BNP was el evated about 4000 as well as lactic acid and procalcitonin were elevated. It is thought patient is septic even though we did not have a urine multiple attempts of catheterization was tried with no success. Patient was given Zosyn 3.375 g IV 3 L of normal saline bolus typed and screened and 2 units of blood is processing., Patient was given 1 g of IV Tylenol, patient be transferred to [place] to Dr. Delgado, Dr. Delgado wanted him to go ER to ER so the ER was called and Dr. Reyna accepted in transfer. Differential Diagnosis Likely altered mental status; Unlikely alcoholic intoxication, delirium, dementia, hypoglycemia, hyponatremia, subarachnoid hemorrhage or sepsis Medical Records I reviewed the patient's medical records. Lab Data I reviewed the patient's lab results. 07/17/23 19:42 07/17/23 19:42 Radiology Impressions Chest X-Ray 07/17/23 19:03 IMPRESSION: No acute findings. Laboratory Results WBC 36.61 10^3/uL (3.29-11.43) H* 07/17/23 19:42 RBC 1.90 10^6/uL (3.85-5.65) L 07/17/23 19:42 Hgb 5.40 g/dL (11.27-16.99) L* 07/17/23 19:42 Hct 17.7 % (37-53) L* 07/17/23 19:42 MCV 93.2 fl (82-101) 07/17/23 19:42 MCH 28.4 pg (27-33) 07/17/23 19:42 MCHC 30.5 g/dL (30-55) 07/17/23 19:42 RDW 18.8 % (12.1-15.1) H 07/17/23 19:42 Plt Count 237 10^3/cmm (157-399) 07/17/23 19:42 MPV 11.9 fL (7.4-10.4) H 07/17/23 19:42 Neut % (Auto) 89.5 % 07/17/23 19:42 Lymph % (Auto) 0.7 % 07/17/23 19:42 [place] % (Auto) 5.3 % 07/17/23 19:42 Eos % (Auto) 0.0 % 07/17/23 19:42 Baso % (Auto) 0.2 % 07/17/23 19:42 Neut # (Auto) 32.80 10^3/uL (1.8-7.7) H 07/17/23 19:42 Lymph # (Auto) 0.2 10^3/uL (0.8-4.8) L 07/17/23 19:42 [place] # (Auto) 1.9 10^3/uL (0.2-0.9) H 07/17/23 19:42 Eos # (Auto) 0.0 10^3/uL (0.0-0.8) 07/17/23 19:42 Baso # (Auto) 0.1 10^3/uL (0.0-0.1) 07/17/23 19:42 Nucleated RBC % (auto) 0 % 07/17/23 19:42 Nucleated RBCs # 0.0 /100WBC 07/17/23 19:42 Sodium 135 mmol/L (136-145) L 07/17/23 19:42 Potassium 4.4 mmol/L (3.5-5.1) 07/17/23 19:42 Chloride 96 mmol/L (98-107) L 07/17/23 19:42 Carbon Dioxide 23 mmol/L (22-29) 07/17/23 19:42 Anion Gap 20.4 (5-19) H 07/17/23 19:42 BUN 42 mg/dL (8-23) H 07/17/23 19:42 Creatinine 1.6 mg/dL (0.7-1.2) H 07/17/23 19:42 GFR Calculation Not Reportable 07/17/23 19:42 Glucose 181 mg/dL (65-115) H 07/17/23 19:42 Calculated Osmolality 295 mOsm/kg (285-295) 07/17/23 19:42 Lactic Acid 6.4 mmol/L (0.5-2.2) H* 07/17/23 19:42 Calcium 8.1 mg/dL (8.5-10.5) L 07/17/23 19:42 Magnesium 1.9 mg/dL (1.7-2.3) 07/17/23 19:42 Total Bilirubin 0.7 mg/dL (0.15-1.2) 07/17/23 19:42 AST 14 U/L (0-40) 07/17/23 19:42 ALT 12 U/L (0-41) 07/17/23 19:42 Alkaline Phosphatase 138 U/L (40-130) H 07/17/23 19:42 NT-Pro-B Natriuret Pep 4122 pg/mL (0-450) H 07/17/23 19:42 Total Protein 4.5 g/dL (6.6-8.7) L 07/17/23 19:42 Albumin 2.2 g/dL (3.5-5.2) L 07/17/23 19:42 Globulin 2.3 g/dL (1.3-4.6) 07/17/23 19:42 Procalcitonin 2.27 ng/mL (0-0.5) H 07/17/23 19:42 Blood Type O Positive 07/17/23 20:14 Rho(D) Type Rh positive 07/17/23 20:14 Antibody Screen Negative 07/17/23 20:14 Crossmatch See Detail 07/17/23 20:14 All radiology interpretation(s) finalized by discharge EKG Data EKG 1: I personally reviewed and interpreted this EKG as follows: EKG interpretation date: 07/17/23 EKG interpretation time: 19:02 Prior EKG tracings: not available for review Interpretation: EKG showed ventricular rate 102 bpm, ND interval 195, QRS duration 104, QTc of 410, sinus tachycardia with occasional PVC, nonspecific ST-T wave abnormalities Discharge Plan Discharge Patient Disposition: Xfer Short-Term Hosp Clinical Impression: Prostate cancer Altered mental status Qualifiers: Altered mental status type: somnolence Qualified Code(s): R40.0 - Somnolence Sepsis Qualifiers: Sepsis type: sepsis due to unspecified organism Sepsis acute organ dysfunction status: unspecified Qualified Code(s): A41.9 - Sepsis, unspecified organism Anemia Qualifiers: Anemia type: unspecified type Qualified Code(s): D64.9 - Anemia, unspecified Condition: Stable Referrals: Rukhsana Gutierrez MD [Primary Care Provider] - Patient Instructions: Hyponatremia (ED), Benzodiazepine Use Disorder (ED), Dementia (ED), Non-diabetic Hypoglycemia (ED), Hypoglycemia in a Person with Diabetes (ED), Concussion (ED), Alcohol Intoxication (ED), Subarachnoid Hemorrhage (GEN), Altered Mental Status (ED) Coding Level of Care Code ED Sulfonator Operator for Felicity Orozco
[2023-07-17 20:02] LABS: Hematocrit 17.7 % (37-53); White Blood Count 36.61 10^3/uL (3.29-11.43)
[2023-07-17 20:19] LABS: Alanine Aminotransferase 12 U/L (0-41); Albumin Level 2.2 g/dL (3.5-5.2); Alkaline Phosphatase 138 U/L (40-130); Anion Gap 20.4 (5-19); Aspartate Amino Transferase 14 U/L (0-40); Blood Urea Nitrogen 42 mg/dL (8-23); Calcium 8.1 mg/dL (8.5-10.5); Carbon Dioxide 23 mmol/L (22-29); Chloride 96 mmol/L (98-107); Globulin 2.3 g/dL (1.3-4.6); Glucose 181 mg/dL (65-115); Magnesium 1.9 mg/dL (1.7-2.3); NT Pro B Type Natriuretic Pept 4122 pg/mL (0-450); Osmolality Calculated 295 mOsm/kg (285-295); Potassium 4.4 mmol/L (3.5-5.1); Sodium 135 mmol/L (136-145); Total Bilirubin 0.7 mg/dL (0.15-1.2); Total Protein 4.5 g/dL (6.6-8.7)
[2023-07-17] MEDS: piperacillin-tazobactam 3.375 GM in sodium chloride 0.9% (plus) 50 ML IV (20:30)
[2023-07-17 20:43] LABS: Procalcitonin 2.27 ng/mL (0-0.5)
[2023-07-17 20:53] LABS: Lactic Sepsis W/Reflex 6.4 mmol/L (0.5-2.2)
[2023-07-17] MEDS: acetaminophen 1,000 MG/100 ML PIGGYBACK 400 MG IV (21:00)
[2023-07-17 21:56] LABS: Reflex Lactate Order REFLEX LACTIC ORDERD
--- NOTE | 2023-07-17 21:56 | PC.NURSE ---
@2140 pts lung sounds clear bilateral upper and lower bases prior to blood transfusion
--- NOTE | 2023-07-17 22:00 | PC.NURSE ---
attempted to cath the pt with a 18 serbian coude cath. unable to advance or get any urine return.
--- NOTE | 2023-07-17 22:41 | PC.NURSE ---
report called to Santiago Martin (charge nurse) at [facility] ER
--- NOTE | 2023-07-17 22:45 | PC.NURSE ---
updated family on transfer delay and report call to [facility]
[2023-07-17] MEDS: morphine 4 mg/mL SDV 1 mL 2 MG IVP (22:59)
--- NOTE | 2023-07-17 23:09 | PC.NURSE ---
blood transfusion continued at 240mLs/hr, sent transfusion with [facility]. @8510. last set of vitals: HR 101; 99% room air; 26 RR; B/P 96/49.
--- NOTE | 2023-07-17 23:12 | PC.NURSE ---
report given to [facility] @2471.
--- NOTE | 2023-07-17 23:12 | PC.NURSE ---
updated Santiago, charge nurse at [facility], about transport update. @4737
[2023-07-17 23:29] LABS: Glucose Point of Care 186 mg/dL (70-110)
== END 2023-07-17 23:17 | disposition short-term general hospital (02) ==
PROVIDERS: Emergency Provider Emergency Medicine; PCP Family Medicine
DX: R40.0 Somnolence (principal); A41.9 Sepsis, unspecified organism; D64.9 Anemia, unspecified; C61 Malignant neoplasm of prostate; M32.9 Systemic lupus erythematosus, unspecified
CPT/HCPCS: 36415; 36416; 36430; 71045; 80053; 82962; 83605; 83735; 83880; 84145; 85025; 86850; 86900; 86920; 87040; 87077; 87186; 87205; 93005; 96365; 96366; 96375; 99285; J0131; J2270; J2543; J7030; P9016

== ENCOUNTER 2023-08-02 22:16 | Emergency (ER) | payer MEDICARE, SELFPAY ==
[2023-08-02 22:17] VITALS: BMI 23.7
[2023-08-02 22:22] VITALS: BP 142/53; PULSE 79; RESP 16; TEMP 36.6; O2SAT 95
--- NOTE | 2023-08-02 22:24 | ED_ITS ---
HPI - Recheck/Abnormal Lab/Rx 2 General: Chief Complaint: Recheck/Abnormal Lab/Rx Stated Complaint: critical labs- Time Seen by Provider: 08/02/23 22:17 Source: patient Mode of arrival: ambulatory Limitations: no limitations History of Present Illness: 88-year-old male is here from [facility] for anemia he has had anemia in the past requiring transfusions he states that his hemoglobin yesterday was 6.9 today it was 7.0 patient here has no complaints he denies any pain anywhere denies any vomiting or diarrhea. Review of Systems 2 Const: Denies: fever(s), chills, body aches or change in appetite Eyes: Denies: blurry vision or eye discomfort ENMT: Denies: throat pain or dental pain Card: Denies: chest pain Resp: Denies: dyspnea GI: Denies: abdominal pain, nausea, vomiting or diarrhea Musc: Reports: back pain; Denies: neck pain Skin/Breast: Denies: rash Neuro: Denies: headache(s) PFSH ED 2 PFSH: Medical History Decubitus ulcer of coccyx History of pancreatitis Constipation due to opioid therapy GERD (gastroesophageal reflux disease) History of prostate cancer Osteoarthritis Osteoporosis DDD (degenerative disc disease) Systemic lupus erythematosus Surgical History History of hand surgery left trigger finger History of repair of right rotator cuff History of bilateral carpal tunnel release History of lumbar surgery Status post insertion of spinal cord stimulator History of open reduction and internal fixation (ORIF) procedure r elbow History of open reduction and internal fixation (ORIF) procedure r femur History of total bilateral knee replacement Family History Mother Dementia Father Rheumatoid arthritis Social History Smoking and tobacco/nicotine status: never used tobacco/nicotine Alcohol intake: current Alcohol intake frequency: holidays/special occasions only Substance/Drug Use: never Lives independently: Yes Household members: spouse Marital status: Number of children: 2 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 Physical Exam 2 Const: COMMON NORMALS: no acute distress, patient oriented x3 and healthy appearing HENMT: COMMON NORMALS: normocephalic and atraumatic HEAD & SCALP: n ormocephalic and atraumatic Neck/C-Spine: COMMON NORMALS: full ROM and supple Chest: COMMONS NORMALS: normal inspection of the chest and normal palpation of entire chest wall Resp: COMMON NORMALS: normal respiratory effort, No retractions, No use of accessory muscles and clear to auscultation bilaterally AUSCULTATION: clear to auscultation bilaterally Cardio: COMMON NORMALS: regular rate, regular rhythm and No murmurs present (Cardio) RATE: regular rate RHYTHM: regular rhythm GI: COMMON NORMALS: Normal to inspection, nondistended, normoactive bowel sounds present, Soft to palpation, non-tender and no masses PALPATION: Yes Soft to palpation Extremity: COMMON NORMALS: normal to inspection and full ROM Neuro: COMMON NORMALS: patient oriented x3, moves all extremities and no focal motor deficits Psych: COMMON NORMALS: mental status grossly normal, Normal thought process present and cooperative THOUGHT PROCESS: Normal thought process present Skin: COMMON NORMALS: no rashes or lesions noted and no wounds GENERAL SKIN EXAM: no rashes or lesions noted Course 2 Vital Signs: Vital signs: Vital Signs Temperature 97.8 F 08/02/23 22:22 Pulse Rate 75 08/02/23 23:10 Respiratory Rate 16 08/02/23 22:22 Blood Pressure 121/46 08/02/23 23:10 Pulse Oximetry 94 08/02/23 23:10 Oxygen Delivery Me thod Room Air 08/02/23 23:10 MDM - Recheck/Abnormal Lab/Rx Medical Decision Making Patient presents here with anemia his hemoglobin here is 7.8 does not require a transfusion here he is stable [facility] he is been well-appearing here. Medical Records I reviewed the patient's medical records. Lab Data I reviewed the patient's lab results. 08/02/23 22:29 08/02/23 22:29 Laboratory Results WBC 3.80 10^3/uL (3.29-11.43) 08/02/23 22:29 RBC 2.63 10^6/uL (3.85-5.65) L 08/02/23 22:29 Hgb 7.80 g/dL (11.27-16.99) L 08/02/23 22:29 Hct 24.7 % (37-53) L 08/02/23 22: MCV 93.9 fl (82-101) 08/02/23 22: MCH 29.7 pg (27-33) 08/02/23 22: MCHC 31.6 g/dL (30-55) 08/02/23 22: RDW 15.4 % (12.1-15.1) H 08/02/23 22: Plt Count 127 10^3/cmm (157-399) L 08/02/23 22: MPV 12.2 fL (7.4-10.4) H 08/02/23 22: Neut % (Auto) 70.5 % 08/02/23 22: Lymph % (Auto) 8.9 % 08/02/23: [place] % (Auto) 19.5 % 08/02/23 22: Eos % (Auto) 0.0 % 08/02/23 22: Baso % (Auto) 0.3 % 08/02/23 22: Neut # (Auto) 2.68 10^3/uL (1.8-7.7) 08/02/23 22: Lymph # (Auto) 0.3 10^3/uL (0.8-4.8) L 08/02/23 22: [place] # (Auto) 0.7 10^3/uL (0.2-0.9) 08/02/23 22: Eos # (Auto) 0.0 10^3/uL (0.0-0.8) 08/02/23 22: Baso # (Auto) 0.0 10^3/uL (0.0-0.1) 08/02/23 22: Nucleated RBC % (auto) 0 % 08/02/23: Nucleated RBCs # 0.0 /100WBC 08/02/23 22: Sodium 135 mmol/L (136-145) L 08/02/23 22: Potassium 4.6 mmol/L (3.5-5.1) 08/02/23 22: Chloride 100 mmol/L (98-107) 08/02/23 22: Carbon Dioxide 31 mmol/L (22-29) H 08/02/23 22:29 Anion Gap 8.6 (5-19) 08/02/23 22:29 BUN 17 mg/dL (8-23) 08/02/23 22:29 Creatinine 1.1 mg/dL (0.7-1.2) 08/02/23 22:29 GFR Calculation Not Reportable 08/02/23 22:29 Glucose 109 mg/dL (65-115) 08/02/23 22:29 Calculated Osmolality 282 mOsm/kg (285-295) L 08/02/23 22:29 Calcium 8.1 mg/dL (8.5-10.5) L 08/02/23 22:29 Total Bilirubin 0.3 mg/dL (0.15-1.2) 08/02/23 22:29 AST 15 U/L (0-40) 08/02/23 22:29 ALT 12 U/L (0-41) 08/02/23 22:29 Alkaline Phosphatase 154 U/L (40-130) H 08/02/23 22:29 Total Protein 4.3 g/dL (6.6-8.7) L 08/02/23 22:29 Albumin 2.4 g/dL (3.5-5.2) L 08/02/23 22:29 Globulin 1.9 g/dL (1.3-4.6) 08/02/23 22:29 Blood Type Cancelled 08/02/23 22:29 Rho(D) Type Cancelled 08/02/23 22:29 Antibody Screen Cancelled 08/02/23 22:29 No radiology studies performed this visit Discharge Plan Discharge Patient Disposition: Home Clinical Impression: Anemia Condition: Stable Prescriptions: No Action acetaminophen [Tylenol 8 Hour] 650 mg tablet extended release 1,300 mg PO Q8H (DME) miscellaneous medical supply Misc See Rx Instructions .Route Qty: 1 0RF Rx Instructions: hospital bed amoxicillin-pot clavulanate 500-125 mg tablet 1 tab PO Q8H hydroxychloroquine [Plaquenil] 200 mg tablet 200 mg PO BID Qty: 60 4RF (DME) Electric Bed See Rx Instructions .Route .MEDSUPPLY Qty: 1 0RF Rx Instructions: As directed hydrocodone-acetaminophen 5-325 mg tablet 1 tab PO Q6H PRN (Reason: Pain) 30 Days Qty: 120 0RF ferrous sulfate [FeroSul] 325 mg (65 mg iron) tablet 325 mg PO QAM Lactobacillus acidoph-pectin 30-20 mg Tablet 1 tab PO DAILY Lasix 40 mg tablet 20 mg PO DAILY Qty: 7 0RF potassium chloride 20 mEq tablet extended release 20 meq PO BID Qty: 20 0RF duloxetine [Cymbalta] 30 mg capsule,delayed release(DR/EC) 30 mg PO QAM lidocaine 5 % Adhesive Patch,Medicated 1 patch topical [id number] Qty: 30 0RF tamsulosin 0.4 mg Capsule 0.4 mg PO DAILY Qty: 90 0RF calcium carbonate [Calcium Antacid] 200 mg calcium (500 mg) Tablet,Chewable 1,000 mg PO DAILY docusate sodium 100 mg capsule 100 mg PO DAILY PRN (Reason: Constipation) capsaicin 0.025 % cream 1 applic TOPICAL QID PRN (Reason: Pain) cholecalciferol (vitamin D3) [Vitamin D3] 50 mcg (2,000 unit) Capsule 50 mcg PO DAILY Discharge Orders: Discharge ED (Routine); Ordered 08/02/23 Ordered By: Corby Nicolas Referrals: Rukhsana Gutierrez MD [Primary Care Provider] - 1-3 days Discharge Diet: Advance as tolerated Discharge Activity: Resume usual activity Patient Instructions: Anemia (ED) Coding Level of Care Code ED Plant Taxonomist for Felicity Orozco
[2023-08-02 22:46] LABS: Basophils % 0.3 %; Hematocrit 24.7 % (37-53); Lymphocytes # 0.3 10^3/uL (0.8-4.8); Lymphocytes % 8.9 %; Mean Corpuscular HGB Conc 31.6 g/dL (30-55); Mean Corpuscular Hemoglobin 29.7 pg (27-33); Mean Corpuscular Volume 93.9 fl (82-101); Mean Platelet Volume 12.2 fL (7.4-10.4); Monocytes # 0.7 10^3/uL (0.2-0.9); Monocytes % 19.5 %; Neutrophils # 2.68 10^3/uL (1.8-7.7); Neutrophils % 70.5 %; Nucleated Red Blood Cells % 0 %; Platelet Count 127 10^3/cmm (157-399); Red Blood Count 2.63 10^6/uL (3.85-5.65); Red Cell Distribution Width 15.4 % (12.1-15.1)
[2023-08-02 23:05] LABS: Alanine Aminotransferase 12 U/L (0-41); Albumin Level 2.4 g/dL (3.5-5.2); Alkaline Phosphatase 154 U/L (40-130); Anion Gap 8.6 (5-19); Aspartate Amino Transferase 15 U/L (0-40); Blood Urea Nitrogen 17 mg/dL (8-23); Calcium 8.1 mg/dL (8.5-10.5); Carbon Dioxide 31 mmol/L (22-29); Chloride 100 mmol/L (98-107); Globulin 1.9 g/dL (1.3-4.6); Glucose 109 mg/dL (65-115); Osmolality Calculated 282 mOsm/kg (285-295); Potassium 4.6 mmol/L (3.5-5.1); Sodium 135 mmol/L (136-145); Total Bilirubin 0.3 mg/dL (0.15-1.2); Total Protein 4.3 g/dL (6.6-8.7)
[2023-08-02 23:10] VITALS: BP 121/46; PULSE 75; O2SAT 94
== END 2023-08-02 23:48 | disposition home or self-care (01) ==
PROVIDERS: Emergency Provider Emergency Medicine; PCP Family Medicine
DX: D64.9 Anemia, unspecified (principal); Z85.46 Personal history of malignant neoplasm of prostate; M32.9 Systemic lupus erythematosus, unspecified
CPT/HCPCS: 80053; 85025; 99283

== ENCOUNTER 2023-08-31 22:18 | Emergency (ER) | payer MEDICARE, SELFPAY ==
[2023-08-31 22:18] VITALS: BP 140/53; PULSE 86; RESP 20; TEMP 36.8; O2SAT 95; BMI 25.1
[2023-08-31 22:42] LABS: Basophils % 0.2 %; Hematocrit 22.3 % (37-53); Lymphocytes # 0.4 10^3/uL (0.8-4.8); Lymphocytes % 8.6 %; Mean Corpuscular HGB Conc 30.9 g/dL (30-55); Mean Corpuscular Hemoglobin 28.9 pg (27-33); Mean Corpuscular Volume 93.3 fl (82-101); Mean Platelet Volume 12.3 fL (7.4-10.4); Monocytes # 0.8 10^3/uL (0.2-0.9); Monocytes % 18.2 %; Neutrophils # 3.11 10^3/uL (1.8-7.7); Neutrophils % 72.5 %; Nucleated Red Blood Cells % 0 %; Platelet Count 114 10^3/cmm (157-399); Red Blood Count 2.39 10^6/uL (3.85-5.65); Red Cell Distribution Width 17.6 % (12.1-15.1); White Blood Count 4.29 10^3/uL (3.29-11.43)
[2023-08-31 23:14] LABS: Alanine Aminotransferase 6 U/L (0-41); Albumin Level 2.8 g/dL (3.5-5.2); Alkaline Phosphatase 178 U/L (40-130); Anion Gap 10.3 (5-19); Aspartate Amino Transferase 11 U/L (0-40); Blood Urea Nitrogen 24 mg/dL (8-23); Calcium 8.3 mg/dL (8.5-10.5); Carbon Dioxide 28 mmol/L (22-29); Chloride 105 mmol/L (98-107); Globulin 2.1 g/dL (1.3-4.6); Glucose 126 mg/dL (65-115); Osmolality Calculated 294 mOsm/kg (285-295); Potassium 4.3 mmol/L (3.5-5.1); Sodium 139 mmol/L (136-145); Total Bilirubin 0.3 mg/dL (0.15-1.2); Total Protein 4.9 g/dL (6.6-8.7)
--- NOTE | 2023-08-31 23:52 | W.ED.MALEGU ---
HPI - Male Genitourinary General: Chief complaint: Urogenital-Male Stated complaint: AMS Time Seen by Provider: 08/31/23 22:31 History of Present Illness: 88-year-old [facility] brought to the ER by EMS for possible that infection. According to his patient was showing some signs of UTI due to previous episodes in the past. The patient was having some urinary incontinency but no fever, nausea or vomiting. Patient is awake alert and denies any abdominal pain at this time. Back pain. Is any blood in his urine. Associated symptoms: Reports urinary incontinence; Deny hematuria Review of Systems General: Reports: 10 or more systems reviewed and unremarkable except in HPI and below Card: Denies: chest pain, palpitations, irregular heart rhythm, edema, swelling of feet/ankles or lightheadedness Resp: Denies: dyspnea, productive cough, non-productive cough, wheezing or stridor : Reports: difficulty urinating, urinary urgency, urinary dribbling and urinary incontinence; Denies: flank pain, urinary frequency, urinary hesitancy, nocturia, hematuria, penile discharge, testicular pain or testicular mass PFSH ED PFSH: Medical History Decubitus ulcer of coccyx History of pancreatitis Constipation due to opioid therapy GERD (gastroesophageal reflux disease) History of prostate cancer Osteoarthritis Osteoporosis DDD (degenerative disc disease) Systemic lupus erythematosus Surgical History History of hand surgery left trigger finger History of repair of right rotator cuff History of bilateral carpal tunnel release History of lumbar surgery Status post insertion of spinal cord stimulator History of open reduction and internal fixation (ORIF) procedure r elbow History of open reduction and internal fixation (ORIF) procedure r femur History of total bilateral knee replacement Family History Mother Dementia Father Rheumatoid arthritis Social History Smoking and tobacco/nicotine status: never used tobacco/nicotine Alcohol intake: current Alcohol intake frequency: holidays/special occasions only Substance/Drug Use: never Lives independently: Yes Household members: spouse Marital status: Number of children: 2 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 Physical Exam Const: COMMON NORMALS: no acute distress, average body habitus, patient oriented x3, no limitations, healthy appearing, alert and well nourished HENMT: COMMON NORMALS: normocephalic, atraumatic, hearing grossly normal bilaterally, external ears normal, EAC's normal, TM's normal bilaterally, Normal external nose present, Normal nasal mucous membranes and turbinates present, moist oral mucous membranes, oropharynx normal, dentition normal and gingiva normal HEAD & SCALP: normocephalic and atraumatic NOSE: Normal external nose present and Normal nasal mucous membranes and turbinates present EXTERNAL EAR: Yes external ears normal EXTERNAL AUDITORY CANAL: EAC's normal TYMPANIC MEMBRANE: TM's normal bilaterally Neck/C-Spine: COMMON NORMALS: no JVD Resp: COMMON NORMALS: normal respiratory effort, No retractions, No use of accessory muscles, clear to auscultation bilaterally and percussion normal AUSCULTATION: clear to auscultation bilaterally PERCUSSION: percussion normal Cardio: COMMON NORMALS: no JVD, regular rate, regular rhythm, S1 normal heart sound present, S2 normal heart sound present, No gallops present (Cardio), No clicks present (Cardio), No murmurs present (Cardio), No rub (Cardio) and Peripheral pulses 2+ throughout RATE: regular rate RHYTHM: regular rhythm HEART SOUNDS: S1 normal heart sound present and S2 normal heart sound present PERIPHERAL PULSES: Peripheral pulses 2+ throughout GI: COMMON NORMALS: Normal to inspection, nondistended, normoactive bowel sounds present, Soft to palpation, non-tender, No hepatosplenomegaly present, no masses and no bruits PALPATION: Yes Soft to palpation and Yes No hepatosplenomegaly present Extremity: COMMON NORMALS: normal to inspection, full ROM, capillary refill normal, no joint enlargement, no clubbing, cyanosis or edema, no calf tenderness and no pedal edema Neuro: COMMON NORMALS: patient oriented x3 SENSORIUM/ORIENTATION: Yes alert Skin: COMMON NORMALS: no rashes or lesions noted, no wounds, turgor normal, no jaundice, no petechiae and no mottling GENERAL SKIN EXAM: no rashes or lesions noted and turgor normal Course Vital Signs: Vital signs: Vital Signs Temperature 98.2 F 08/31/23 22:18 Pulse Rate 86 08/31/23 22:18 Respiratory Rate 20 H 08/31/23 22:18 Blood Pressure 140/53 08/31/23 22:18 Pulse Oximetry 95 08/31/23 22:18 Oxygen Delivery Me thod Room Air 08/31/23 22:18 MDM - Male Medical Decision Making Patient was made comfortable emergency room had extensive workup with a CBC, CMP and a bladder scan. Bladder scan did not show minimal urine in the bladder. Patient unable to provide urine at this time. Given his presenting symptoms and past medical history of UTIs patient was given Rocephin will be discharged home with Karol. I discussed current plan with . Patient be [facility] further [facility] and treatment. Differential Diagnosis Likely urinary tract infection, priapism, urethritis, epididymitis, prostatitis, acute retention of urine and inguinal hernia Lab Data 08/31/23 22:25 08/31/23 22:25 Laboratory Results WBC 4.29 10^3/uL (3.29-11.43) 08/31/23 22:25 RBC 2.39 10^6/uL (3.85-5.65) L 08/31/23 22:25 Hgb 6.90 g/dL (11.27-16.99) L 08/31/23 22:25 Hct 22.3 % (37-53) L 08/31/23 22:25 MCV 93.3 fl (82-101) 08/31/23 22:25 MCH 28.9 pg (27-33) 08/31/23 22:25 MCHC 30.9 g/dL (30-55) 08/31/23 22:25 RDW 17.6 % (12.1-15.1) H 08/31/23 22:25 Plt Count 114 10^3/cmm (157-399) L 08/31/23 22:25 MPV 12.3 fL (7.4-10.4) H 08/31/23 22:25 Neut % (Auto) 72.5 % 08/31/23 22:25 Lymph % (Auto) 8.6 % 08/31/23 22:25 [place] % (Auto) 18.2 % 08/31/23 22:25 Eos % (Auto) 0.0 % 08/31/23 22:25 Baso % (Auto) 0.2 % 08/31/23 22:25 Neut # (Auto) 3.11 10^3/uL (1.8-7.7) 08/31/23 22:25 Lymph # (Auto) 0.4 10^3/uL (0.8-4.8) L 08/31/23 22:25 [place] # (Auto) 0.8 10^3/uL (0.2-0.9) 08/31/23 22:25 Eos # (Auto) 0.0 10^3/uL (0.0-0.8) 08/31/23 22:25 Baso # (Auto) 0.0 10^3/uL (0.0-0.1) 08/31/23 22:25 Nucleated RBC % (auto) 0 % 08/31/23 22:25 Nucleated RBCs # 0.0 /100WBC 08/31/23 22:25 Sodium 139 mmol/L (136-145) 08/31/23 22:25 Potassium 4.3 mmol/L (3.5-5.1) 08/31/23 22:25 Chloride 105 mmol/L (98-107) 08/31/23 22:25 Carbon Dioxide 28 mmol/L (22-29) 08/31/23 22:25 Anion Gap 10.3 (5-19) 08/31/23 22:25 BUN 24 mg/dL (8-23) H 08/31/23 22:25 Creatinine 1.2 mg/dL (0.7-1.2) 08/31/23 22:25 GFR Calculation Not Reportable 08/31/23 22:25 Glucose 126 mg/dL (65-115) H 08/31/23 22:25 Calculated Osmolality 294 mOsm/kg (285-295) 08/31/23 22:25 Calcium 8.3 mg/dL (8.5-10.5) L 08/31/23 22:25 Total Bilirubin 0.3 mg/dL (0.15-1.2) 08/31/23 22:25 AST 11 U/L (0-40) 08/31/23 22:25 ALT 6 U/L (0-41) 08/31/23 22:25 Alkaline Phosphatase 178 U/L (40-130) H 08/31/23 22:25 Total Protein 4.9 g/dL (6.6-8.7) L 08/31/23 22:25 Albumin 2.8 g/dL (3.5-5.2) L 08/31/23 22:25 Globulin 2.1 g/dL (1.3-4.6) 08/31/23 22:25 No radiology studies performed this visit Discharge Plan Discharge Patient Disposition: Home Clinical Impression: Acute UTI (urinary tract infection) Condition: Stable Prescriptions: New Cipro 250 mg tablet 250 mg PO BID Qty: 7 0RF No Action acetaminophen [Tylenol 8 Hour] 650 mg tablet extended release 1,300 mg PO Q8H (DME) miscellaneous medical supply Misc See Rx Instructions .Route Qty: 1 0RF Rx Instructions: hospital bed amoxicillin-pot clavulanate 500-125 mg tablet 1 tab PO Q8H hydroxychloroquine [Plaquenil] 200 mg tablet 200 mg PO BID Qty: 60 4RF (DME) Electric Bed See Rx Instructions .Route .MEDSUPPLY Qty: 1 0RF Rx Instructions: As directed hydrocodone-acetaminophen 5-325 mg tablet 1 tab PO Q6H PRN (Reason: Pain) 30 Days Qty: 120 0RF ferrous sulfate [FeroSul] 325 mg (65 mg iron) tablet 325 mg PO QAM Lactobacillus acidoph-pectin 30-20 mg Tablet 1 tab PO DAILY Lasix 40 mg tablet 20 mg PO DAILY Qty: 7 0RF potassium chloride 20 mEq tablet extended release 20 meq PO BID Qty: 20 0RF duloxetine [Cymbalta] 30 mg capsule,delayed release(DR/EC) 30 mg PO QAM lidocaine 5 % Adhesive Patch,Medicated 1 patch topical [id number] Qty: 30 0RF tamsulosin 0.4 mg Capsule 0.4 mg PO DAILY Qty: 90 0RF calcium carbonate [Calcium Antacid] 200 mg calcium (500 mg) Tablet,Chewable 1,000 mg PO DAILY docusate sodium 100 mg capsule 100 mg PO DAILY PRN (Reason: Constipation) capsaicin 0.025 % cream 1 applic TOPICAL QID PRN (Reason: Pain) cholecalciferol (vitamin D3) [Vitamin D3] 50 mcg (2,000 unit) Capsule 50 mcg PO DAILY Discharge Orders: Discharge ED (Routine); Ordered 08/31/23 Ordered By: Josep Kruger Referrals: Ras Carrasco DO [Primary Care Provider] - Discharge Diet: Advance as tolerated Discharge Activity: Resume usual activity Patient Instructions: Opioid Safety, Pain Management Coding Level of Care Code ED Medical Technologist Chief for Felicity Orozco
[2023-09-01] VITALS: BP 140/67; PULSE 85; RESP 16; O2SAT 99
[2023-09-01] MEDS: cefTRIAXone 1,000 MG in sodium chloride 0.9% (plus) 50 ML 100 MG IV (00:07)
== END 2023-09-01 02:56 | disposition home or self-care (01) ==
PROVIDERS: Emergency Provider Family Medicine; PCP Internal Medicine
DX: N39.0 Urinary tract infection, site not specified (principal); Z85.46 Personal history of malignant neoplasm of prostate; M32.9 Systemic lupus erythematosus, unspecified
CPT/HCPCS: 80053; 85025; 96374; 99284; J0696